=== PATIENT | female | born 1965 | race Caucasian/White ===

== ENCOUNTER → 2018-04-04 | Outpatient (CLI) | payer OTHER ==
[2018-04-05 12:25] LABS: BACTERIA,URINE 0 /HPF (0-FEW); BILIRUBIN,URINE NEG (NEG); CLARITY,URINE HAZY; COLOR,URINE AMBER; GLUCOSE,URINE NEG (NEG); NITRITE,URINE NEG (NEG); RBC,URINE 20-40 /HPF (0-2); UROBILINOGEN,URINE 0.2 mg/dL (0.2 mg/dL)
[2018-04-05 12:26] LABS: SQUAMOUS EPITHELIAL CELL,UR OCC /LPF; WBC,URINE RARE /HPF (0-4)
== END | disposition home or self-care (01) ==
LOC: SPEC 18:50
DX: Z01.818 Encounter for other preprocedural examination (principal); I10 Essential (primary) hypertension; E03.9 Hypothyroidism, unspecified
CPT/HCPCS: 81001

== ENCOUNTER 2019-08-14 13:30 | Inpatient (IN) | payer OTHER ==
[~2019-08-14] VITALS: Ht 162.6 cm; Wt 68.9 kg
[2019-08-14] MEDS ORDERED: METHYL SALICYLATE/MENTHOL TOPICAL OINTMENT 57GM TUBE. TP PRN (13:45)
[2019-08-14] MEDS ORDERED: MAG HYDROX/AL HYDROX/SIMETH 30 ML ORAL.SUSP PO PRN (13:45)
[2019-08-14] MEDS ORDERED: DONE10TA7 PO (13:58)
[2019-08-14] MEDS ORDERED: LISI40TA PO (13:58)
[2019-08-14] MEDS ORDERED: MEMA10TA PO (13:58)
[2019-08-14] MEDS ORDERED: MELA3TAB4 PO (13:58)
[2019-08-14] MEDS ORDERED: LEVO125T PO (13:58)
[2019-08-14 14:00] VITALS: BP 94/54
[2019-08-14 15:01] LABS: BASO # 0.1 x10^3/uL (0.0-0.2); BASO % 1 % (0-3); EOS % 0 % (0-3); HEMATOCRIT 41.5 % (36.0-47.0); HEMOGLOBIN 13.9 g/dL (12.0-15.5); LYMPH % 13 % (24-48); MEAN CORPUSCULAR HEMOGLOBIN 30 pg (25-35); MEAN CORPUSCULAR HGB CONC 34 g/dL (31-37); MEAN CORPUSCULAR VOLUME 91 fL (79-100); MONO # 0.6 x10^3/uL (0.0-1.1); MONO % 8 % (0-9); NEUT # 5.6 x10^3uL (1.8-7.7); NEUT % 78 % (31-73); PLATELET COUNT 207 x10^3/uL (140-400); RED BLOOD COUNT 4.59 x10^6/uL (3.50-5.40); RED CELL DISTRIBUTION WIDTH 13.6 % (11.5-14.5); WHITE BLOOD COUNT 7.3 x10^3/uL (4.0-11.0)
[2019-08-14 15:13] LABS: ALBUMIN 3.7 g/dL (3.4-5.0); ALBUMIN/GLOBULIN RATIO 1.2 (1.0-1.7); CREATININE 0.8 mg/dL (0.6-1.0); GFR 74.7; POTASSIUM 3.4 mmol/L (3.5-5.1); TOTAL BILIRUBIN 0.4 mg/dL (0.2-1.0); TOTAL PROTEIN 6.9 g/dL (6.4-8.2)
[2019-08-14] MEDS: MELATONIN 3 MG TABLET PO SCH (20:36)
[2019-08-14] MEDS: MEMANTINE 10 MG TABLET. PO SCH (20:36)
--- NOTE | 2019-08-14 21:26 | PDOC ---
Exam Note: Steve Note: Please also refer to the separate dictated note~for this date of service dictated separately. Discussed the patient with Nursing staff reviewed the chart.~Reviewed interim history and current functioning. Reviewed vital signs,~Labs/ Radiology~and current medications noted below. Continue current treatment with the changes noted in the dictated addendum note Assessment: Vital Signs/I&O: Vital Signs Date Time Temp Pulse Resp B/P (MAP) Pulse Ox O2 Delivery O2 Flow Rate FiO2 08/14/19 14:00 97.9 89 18 94/54 (67) 95 Room Air Labs: Laboratory Tests Test 08/14/19 14:50 White Blood Count 7.3 x10^3/uL (4.0-11.0) Red Blood Count 4.59 x10^6/uL (3.50-5.40) Hemoglobin 13.9 g/dL (12.0-15.5) Hematocrit 41.5 % (36.0-47.0) Mean Corpuscular Volume 91 fL (79-100) Mean Corpuscular Hemoglobin 30 pg (25-35) Mean Corpuscular Hemoglobin Concent 34 g/dL (31-37) Red Cell Distribution Width 13.6 % (11.5-14.5) Platelet Count 207 x10^3/uL (140-400) Neutrophils (%) (Auto) 78 % (31-73) H Lymphocytes (%) (Auto) 13 % (24-48) L Monocytes (%) (Auto) 8 % (0-9) Eosinophils (%) (Auto) 0 % (0-3) Basophils (%) (Auto) 1 % (0-3) Neutrophils # (Auto) 5.6 x10^3uL (1.8-7.7) Lymphocytes # (Auto) 1.0 x10^3/uL (1.0-4.8) Monocytes # (Auto) 0.6 x10^3/uL (0.0-1.1) Eosinophils # (Auto) 0.0 x10^3/uL (0.0-0.7) Basophils # (Auto) 0.1 x10^3/uL (0.0-0.2) Sodium Level 144 mmol/L (136-145) Potassium Level 3.4 mmol/L (3.5-5.1) L Chloride Level 109 mmol/L (98-107) H Carbon Dioxide Level 27 mmol/L (21-32) Anion Gap 8 (6-14) Blood Urea Nitrogen 9 mg/dL (7-20) Creatinine 0.8 mg/dL (0.6-1.0) Estimated GFR (Cockcroft-Gault) 74.7 BUN/Creatinine Ratio 11 (6-20) Glucose Level 89 mg/dL (70-99) Calcium Level 9.0 mg/dL (8.5-10.1) Magnesium Level 2.1 mg/dL (1.8-2.4) Total Bilirubin 0.4 mg/dL (0.2-1.0) Aspartate Amino Transferase (AST) 25 U/L (15-37) Alanine Aminotransferase (ALT) 39 U/L (14-59) Alkaline Phosphatase 116 U/L (46-116) Total Protein 6.9 g/dL (6.4-8.2) Albumin 3.7 g/dL (3.4-5.0) Albumin/Globulin Ratio 1.2 (1.0-1.7) Current Medications: Meds: Current Medications Medications (Trade) Dose Ordered Sig/Noel Route PRN Reason Start Time Stop Time Status Last Admin Dose Admin Melatonin (Melatonin) 6 mg HS PO 08/14/19 21:00 08/14/19 20:36 Memantine (Namenda) 10 mg BID PO 08/14/19 21:00 08/14/19 20:36 I have reviewed the current psychotropics carefully including drug interactions. Risk benefit ratio favors no change other than as noted in my dictated progress note. Diagnosis: Problems: (1) Major neurocognitive disorder due to Alzheimer's disease, with behavioral disturbance (2) Anxiety disorder (3) Major neurocognitive disorder, due to vascular disease, with behavioral disturbance, mild (4) Dementia in Alzheimer's disease with delusions (5) Dementia in Alzheimer's disease with depression (6) Dementia, vascular, with delusions (7) Dementia, vascular, with depression (8) Impulse control disorder MICHELLE CALDERÓN MD Aug 14, 2019 21:26
[2019-08-15 07:09] LABS: HEMOGLOBIN A1C 5.2 % (4.8-5.6)
[2019-08-15] MEDS ORDERED: LEVOTHYROXINE 125 MCG TABLET PO SCH (07:30)
[2019-08-15 08:08] LABS: THYROXINE 8.7 ug/dL (4.5-12.0)
[2019-08-15] MEDS: LISINOPRIL 20 MG TABLET PO SCH (08:36)
[2019-08-15] MEDS: MEMANTINE 10 MG TABLET. PO SCH ×2 (08:36→20:02)
[2019-08-15] MEDS: DIVALPROEX 125 MG CAP.SPRINK PO SCH ×2 (08:36→17:00)
[2019-08-15] MEDS: DONEPEZIL HCL 10 MG TABLET PO SCH (08:36)
[2019-08-15] MEDS: QUEtiapine 25 MG TABLET. PO SCH ×2 (08:37→17:00)
[2019-08-15] MEDS ORDERED: LISINOPRIL 40 MG PO SCH (09:00)
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
[2019-08-15 15:01] LABS: THYROID STIM HORMONE (TSH) 12.518 uIU/mL (0.358-3.740)
[2019-08-15 15:50] VITALS: BP 169/50
[2019-08-15] MEDS: POTASSIUM CHLORIDE 20 MEQ TABLET.ER. PO SCH (17:00)
[2019-08-15] MEDS: MELATONIN 3 MG TABLET PO SCH (20:02)
[2019-08-15] MEDS: MIRTAZAPINE 7.5 MG TABLET. PO SCH (20:02)
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
--- NOTE | 2019-08-15 21:30 | PDOC ---
Exam Note: Steve Note: Please also refer to the separate dictated note~for this date of service dictated separately.~Patient seen individually. Discussed the patient with Nursing staff reviewed the chart.~Reviewed interim history and current functioning. Reviewed vital signs,~Labs/ Radiology~and current medications noted below. Continue current treatment with the changes noted in the dictated addendum note Assessment: Vital Signs/I&O: Vital Signs Date Time Temp Pulse Resp B/P (MAP) Pulse Ox O2 Delivery O2 Flow Rate FiO2 08/15/19 15:50 97.2 86 24 169/50 (89) 97 08/14/19 14:00 Room Air I & O 08/14/19 08/14/19 08/15/19 15:00 23:00 07:00 Intake Total 120 ml 120 ml 240 ml Balance 120 ml 120 ml 240 ml Current Medications: Meds: Current Medications Medications (Trade) Dose Ordered Sig/Noel Route PRN Reason Start Time Stop Time Status Last Admin Dose Admin Donepezil HCl (Aricept) 10 mg DAILY PO 08/15/19 09:00 08/15/19 08:36 Levothyroxine Sodium (Synthroid) 125 mcg DAILYAC PO 08/15/19 07:30 08/15/19 08:36 DC 08/15/19 06:36 Olanzapine (ZyPREXA ZYDIS) 5 mg PRN Q2HR PRN PO PSYCHOSIS 08/15/19 00:30 08/15/19 11:00 Quetiapine Fumarate (SEROquel) 25 mg 0900,1700 PO 08/15/19 09:00 08/15/19 17:00 Divalproex Sodium (Depakote Sprinkles) 125 mg 0900,1700 PO 08/15/19 09:00 08/15/19 17:00 Potassium Chloride (Klor-Con) 20 meq BIDWMEALS PO 08/15/19 17:00 08/15/19 17:00 Mirtazapine (Remeron) 7.5 mg QHS PO 08/15/19 21:00 08/15/19 20:02 I have reviewed the current psychotropics carefully including drug interactions. Risk benefit ratio favors no change other than as noted in my dictated progress note. Diagnosis: Problems: (1) Major neurocognitive disorder due to Alzheimer's disease, with behavioral disturbance (2) Anxiety disorder (3) Major neurocognitive disorder, due to vascular disease, with behavioral disturbance, mild (4) Dementia in Alzheimer's disease with delusions (5) Dementia in Alzheimer's disease with depression (6) Dementia, vascular, with delusions (7) Dementia, vascular, with depression (8) Impulse control disorder MICHELLE CALDERÓN MD Aug 15, 2019 21:30
[2019-08-15] MEDS: traZODone 50 MG TABLET. PO PRN (23:32)
[2019-08-16] MEDS: LEVOTHYROXINE 125 MCG TABLET PO SCH (05:06)
[2019-08-16] MEDS: MEMANTINE 10 MG TABLET. PO SCH ×4 (08:34→22:12)
[2019-08-16] MEDS: DIVALPROEX 125 MG CAP.SPRINK PO SCH ×2 (08:34→17:00)
[2019-08-16] MEDS: LISINOPRIL 20 MG TABLET PO SCH (08:34)
[2019-08-16] MEDS: DONEPEZIL HCL 10 MG TABLET PO SCH (08:34)
[2019-08-16] MEDS: QUEtiapine 25 MG TABLET. PO SCH ×2 (08:34→17:00)
[2019-08-16] MEDS: POTASSIUM CHLORIDE 20 MEQ TABLET.ER. PO SCH ×2 (08:35→17:00)
[2019-08-16] MEDS: metroNIDAZOLE 0.75% TOPICAL 1 APP TUBE TP SCH (08:35)
[2019-08-16 16:19] VITALS: BP 120/70
[2019-08-16] MEDS: MELATONIN 3 MG TABLET PO SCH ×3 (20:07→21:00)
[2019-08-16] MEDS: MIRTAZAPINE 7.5 MG TABLET. PO SCH ×3 (20:07→22:30)
[2019-08-16 20:16] VITALS: BP 96/58
--- NOTE | 2019-08-16 21:23 | PDOC ---
Exam Note: Steve Note: Please also refer to the separate dictated note~for this date of service dictated separately.~Patient seen individually. Discussed the patient with Nursing staff reviewed the chart.~Reviewed interim history and current functioning. Reviewed vital signs,~Labs/ Radiology~and current medications noted below. Continue current treatment with the changes noted in the dictated addendum note Assessment: Vital Signs/I&O: Vital Signs Date Time Temp Pulse Resp B/P (MAP) Pulse Ox O2 Delivery O2 Flow Rate FiO2 08/16/19 16:19 87 20 120/70 (87) 99 08/16/19 06:40 97.1 08/14/19 14:00 Room Air I & O 08/15/19 08/15/19 08/16/19 15:00 23:00 07:00 Intake Total 600 ml 240 ml 240 ml Balance 600 ml 240 ml 240 ml Current Medications: Meds: Current Medications Medications (Trade) Dose Ordered Sig/Noel Route PRN Reason Start Time Stop Time Status Last Admin Dose Admin Levothyroxine Sodium (Synthroid) 125 mcg DAILY06 PO 08/16/19 06:00 08/16/19 05:06 Metronidazole (Nydamax) 1 mell DAILY TP 08/16/19 09:00 08/16/19 08:35 I have reviewed the current psychotropics carefully including drug interactions. Risk benefit ratio favors no change other than as noted in my dictated progress note. Diagnosis: Problems: (1) Major neurocognitive disorder due to Alzheimer's disease, with behavioral disturbance (2) Anxiety disorder (3) Major neurocognitive disorder, due to vascular disease, with behavioral disturbance, mild (4) Dementia in Alzheimer's disease with delusions (5) Dementia in Alzheimer's disease with depression (6) Dementia, vascular, with delusions (7) Dementia, vascular, with depression (8) Impulse control disorder MICHELLE CALDERÓN MD Aug 16, 2019 21:23
[2019-08-16] MEDS: traZODone 50 MG TABLET. PO PRN (22:12)
[2019-08-17 00:16] VITALS: BP 107/69
[2019-08-17] MEDS: LEVOTHYROXINE 125 MCG TABLET PO SCH (05:02)
[2019-08-17 06:31] VITALS: BP 111/65
[2019-08-17] MEDS: QUEtiapine 25 MG TABLET. PO SCH ×2 (08:13→17:17)
[2019-08-17] MEDS: LISINOPRIL 20 MG TABLET PO SCH (08:13)
[2019-08-17] MEDS: MEMANTINE 10 MG TABLET. PO SCH ×2 (08:14→20:05)
[2019-08-17] MEDS: DONEPEZIL HCL 10 MG TABLET PO SCH (08:14)
[2019-08-17] MEDS: metroNIDAZOLE 0.75% TOPICAL 1 APP TUBE TP SCH (08:14)
[2019-08-17] MEDS: POTASSIUM CHLORIDE 20 MEQ TABLET.ER. PO SCH ×2 (08:14→17:17)
[2019-08-17] MEDS: DIVALPROEX 125 MG CAP.SPRINK PO SCH ×2 (08:14→17:17)
[2019-08-17 15:45] VITALS: BP 137/78
[2019-08-17] MEDS: MELATONIN 3 MG TABLET PO SCH (20:05)
[2019-08-17] MEDS: MIRTAZAPINE 7.5 MG TABLET. PO SCH (20:05)
[2019-08-17] MEDS: traZODone 50 MG TABLET. PO PRN (20:07)
[2019-08-17] MEDS ORDERED: MIRTAZAPINE 7.5 MG TABLET. PO SCH (21:00)
--- NOTE | 2019-08-17 22:17 | PN ---
DATE: 08/15/2019 PSYCHIATRIC PROGRESS NOTE This late entry 08/15/2019 covers elements not covered in my initial note. SUBJECTIVE: I met with the patient evening of 08/15/2019. Per DEVORA Miller, the patient remains confused, anxious, restless, constantly pacing up and down, oblivious of where she is. She had to be in the west Hallway to reduce sensory stimuli. Speech is word salad, slept just 3/4 hours previous night. Remains on Depakote and Seroquel. REVIEW OF SYSTEMS: No CV, , pulmonary, eye, ENT system symptoms on review. Reliability poor. MENTAL STATUS EXAM: Oriented to herself. Insight, judgment, recent and remote memory, attention, concentration, fund of knowledge poor, consistent with her diagnoses. IMPRESSION: Major neurocognitive disorder, Alzheimer, vascular with delusion, depression, behavioral disturbance; anxiety disorder, unspecified; impulse control disorder, unspecified. PLAN: Start Remeron 7.5 mg at bedtime to help with insomnia and anxiety. Maintain Seroquel and Depakote. Start trazodone 50 mg at bedtime p.r.n., may repeat x 1. She is receiving Zyprexa p.r.n., already received 15 mg by the time I met with her and maxes 20 mg in 24 hours. We will have to reassess this. MICHELLE CALDERÓN MD DR: JOSH/corrie JOB#: [id number] / [id number]
--- NOTE | 2019-08-17 22:19 | PN ---
DATE: 08/16/2019 This late entry 08/16/2019 covers elements not covered in my initial note. SUBJECTIVE: I met with the patient in evening of 08/16/2019. Per DEVORA Rivas, the patient slept full three-quarter hours previous night. She remains restless, wandering, sleeps in the chair, oblivious away. Sometimes, she has to be in the west Hallway to reduce stimuli. REVIEW OF SYSTEMS: No CV, , pulmonary, eye, ENT system symptoms on review. MENTAL STATUS EXAM: Oriented to herself. Insight, judgment, recent and remote memory, attention, concentration, fund of knowledge poor, consistent with her diagnosis mentioned in my initial note. IMPRESSION: Major neurocognitive disorder; Alzheimer, vascular with delusion; depression; behavioral disturbance; anxiety disorder, unspecified; impulse control disorder, unspecified. PLAN: Increase Remeron from 7.5 mg at bedtime to 15 mg at bedtime to help with her insomnia, anxiety, restlessness. Maintain Depakote Sprinkles 125 mg 0900, 1700. Check a valproic acid level. Maintain Seroquel 25 mg 0900 and 1700, Namenda 10 b.i.d., Aricept 10 mg daily, melatonin 6 mg at bedtime, trazodone and Zyprexa p.r.n. Rest unchanged. MAN Lance CALDERÓN MD DR: JOSH/corrie JOB#: [id number] / [id number]
--- NOTE | 2019-08-17 22:45 | PDOC ---
Exam Note: Steve Note: Please also refer to the separate dictated note~for this date of service dictated separately.~Patient seen individually. Discussed the patient with Nursing staff reviewed the chart.~Reviewed interim history and current functioning. Reviewed vital signs,~Labs/ Radiology~and current medications noted below. Continue current treatment with the changes noted in the dictated addendum note Assessment: Vital Signs/I&O: Vital Signs Date Time Temp Pulse Resp B/P (MAP) Pulse Ox O2 Delivery O2 Flow Rate FiO2 08/17/19 15:45 98.0 78 20 137/78 (97) 97 08/17/19 00:16 Room Air I & O 08/16/19 08/16/19 08/17/19 15:00 23:00 07:00 Intake Total 480 ml 0 ml 240 ml Balance 480 ml 0 ml 240 ml Current Medications: I have reviewed the current psychotropics carefully including drug interactions. Risk benefit ratio favors no change other than as noted in my dictated progress note. Diagnosis: Problems: (1) Major neurocognitive disorder due to Alzheimer's disease, with behavioral disturbance (2) Anxiety disorder (3) Major neurocognitive disorder, due to vascular disease, with behavioral disturbance, mild (4) Dementia in Alzheimer's disease with delusions (5) Dementia in Alzheimer's disease with depression (6) Dementia, vascular, with delusions (7) Dementia, vascular, with depression (8) Impulse control disorder MICHELLE CALDERÓN MD Aug 17, 2019 22:45
[2019-08-18] MEDS: LEVOTHYROXINE 125 MCG TABLET PO SCH (05:13)
[2019-08-18 06:29] VITALS: BP 126/77
[2019-08-18 07:41] LABS: BASO % 1 % (0-3); EOS # 0.1 x10^3/uL (0.0-0.7); EOS % 2 % (0-3); HEMATOCRIT 41.4 % (36.0-47.0); HEMOGLOBIN 13.6 g/dL (12.0-15.5); LYMPH # 0.9 x10^3/uL (1.0-4.8); LYMPH % 15 % (24-48); MEAN CORPUSCULAR HEMOGLOBIN 30 pg (25-35); MEAN CORPUSCULAR HGB CONC 33 g/dL (31-37); MEAN CORPUSCULAR VOLUME 91 fL (79-100); MONO # 0.6 x10^3/uL (0.0-1.1); MONO % 11 % (0-9); NEUT # 4.4 x10^3uL (1.8-7.7); NEUT % 73 % (31-73); PLATELET COUNT 200 x10^3/uL (140-400); RED BLOOD COUNT 4.54 x10^6/uL (3.50-5.40); RED CELL DISTRIBUTION WIDTH 13.3 % (11.5-14.5)
[2019-08-18 08:04] LABS: ALBUMIN 3.6 g/dL (3.4-5.0); CALCIUM 9.4 mg/dL (8.5-10.1); CREATININE 0.8 mg/dL (0.6-1.0); GFR 74.7; POTASSIUM 4.3 mmol/L (3.5-5.1); TOTAL BILIRUBIN 0.7 mg/dL (0.2-1.0); TOTAL PROTEIN 7.2 g/dL (6.4-8.2)
[2019-08-18 08:39] LABS: VAL ACID 17 mcg/mL (50-100)
[2019-08-18] MEDS: POTASSIUM CHLORIDE 20 MEQ TABLET.ER. PO SCH ×2 (08:45→17:00)
[2019-08-18] MEDS: DIVALPROEX 125 MG CAP.SPRINK PO SCH (08:45)
[2019-08-18] MEDS: DONEPEZIL HCL 10 MG TABLET PO SCH (08:45)
[2019-08-18] MEDS: metroNIDAZOLE 0.75% TOPICAL 1 APP TUBE TP SCH (08:46)
[2019-08-18] MEDS: LISINOPRIL 20 MG TABLET PO SCH (08:46)
[2019-08-18] MEDS: MEMANTINE 10 MG TABLET. PO SCH ×2 (08:46→20:30)
[2019-08-18] MEDS: QUEtiapine 25 MG TABLET. PO SCH ×2 (08:46→17:00)
[2019-08-18] MEDS: MELATONIN 3 MG TABLET PO SCH (20:30)
[2019-08-18] MEDS: MIRTAZAPINE 7.5 MG TABLET. PO SCH (20:30)
--- NOTE | 2019-08-18 21:05 | PN ---
DATE: 08/17/2019 This late entry 08/17/2019 covers elements not covered in my initial note. SUBJECTIVE: I met with the patient in evening of 08/17/2019. Per DEVORA Blanco, the patient slept 7-1/4 hours previous night. She has been wandering, yelling at times. visited, she was calm during the visit, woke up later, was yelling, takes medications, crushed. We will check a valproic acid level in the morning of 08/18/2019. REVIEW OF SYSTEMS: No CV, , pulmonary, eye, ENT system symptoms on review. Reliability poor. MENTAL STATUS EXAM: Oriented to herself. Insight, judgment, recent and remote memory, attention, concentration, fund of knowledge poor, consistent with her diagnoses. IMPRESSION: Major neurocognitive disorder; Alzheimer; vascular with delusion; depression; behavioral disturbance; anxiety disorder, unspecified; impulse control disorder, unspecified. Rest unchanged. PLAN: No change from initial note. Check a valproic acid level. Adjust further as clinically indicated. MAN Lance CALDERÓN MD DR: JOSH/corrie JOB#: [id number] / [id number]
--- NOTE | 2019-08-18 21:52 | PDOC ---
Exam Note: Steve Note: Please also refer to the separate dictated note~for this date of service dictated separately.~Patient seen individually. Discussed the patient with Nursing staff reviewed the chart.~Reviewed interim history and current functioning. Reviewed vital signs,~Labs/ Radiology~and current medications noted below. Continue current treatment with the changes noted in the dictated addendum note Assessment: Vital Signs/I&O: Vital Signs Date Time Temp Pulse Resp B/P (MAP) Pulse Ox O2 Delivery O2 Flow Rate FiO2 08/18/19 08:46 74 126/77 08/18/19 06:29 97.0 14 98 08/17/19 00:16 Room Air I & O 08/17/19 08/17/19 08/18/19 15:00 23:00 07:00 Intake Total 440 ml 240 ml 60 ml Balance 440 ml 240 ml 60 ml Labs: Laboratory Tests Test 08/18/19 07:30 White Blood Count 6.0 x10^3/uL (4.0-11.0) Red Blood Count 4.54 x10^6/uL (3.50-5.40) Hemoglobin 13.6 g/dL (12.0-15.5) Hematocrit 41.4 % (36.0-47.0) Mean Corpuscular Volume 91 fL (79-100) Mean Corpuscular Hemoglobin 30 pg (25-35) Mean Corpuscular Hemoglobin Concent 33 g/dL (31-37) Red Cell Distribution Width 13.3 % (11.5-14.5) Platelet Count 200 x10^3/uL (140-400) Neutrophils (%) (Auto) 73 % (31-73) Lymphocytes (%) (Auto) 15 % (24-48) L Monocytes (%) (Auto) 11 % (0-9) H Eosinophils (%) (Auto) 2 % (0-3) Basophils (%) (Auto) 1 % (0-3) Neutrophils # (Auto) 4.4 x10^3uL (1.8-7.7) Lymphocytes # (Auto) 0.9 x10^3/uL (1.0-4.8) L Monocytes # (Auto) 0.6 x10^3/uL (0.0-1.1) Eosinophils # (Auto) 0.1 x10^3/uL (0.0-0.7) Basophils # (Auto) 0.0 x10^3/uL (0.0-0.2) Sodium Level 144 mmol/L (136-145) Potassium Level 4.3 mmol/L (3.5-5.1) Chloride Level 108 mmol/L (98-107) H Carbon Dioxide Level 26 mmol/L (21-32) Anion Gap 10 (6-14) Blood Urea Nitrogen 17 mg/dL (7-20) Creatinine 0.8 mg/dL (0.6-1.0) Estimated GFR (Cockcroft-Gault) 74.7 BUN/Creatinine Ratio 21 (6-20) H Glucose Level 88 mg/dL (70-99) Calcium Level 9.4 mg/dL (8.5-10.1) Total Bilirubin 0.7 mg/dL (0.2-1.0) Aspartate Amino Transferase (AST) 19 U/L (15-37) Alanine Aminotransferase (ALT) 31 U/L (14-59) Alkaline Phosphatase 120 U/L (46-116) H Ammonia 13 mcmol/L (11-34) Total Protein 7.2 g/dL (6.4-8.2) Albumin 3.6 g/dL (3.4-5.0) Albumin/Globulin Ratio 1.0 (1.0-1.7) Valproic Acid Level 17 mcg/mL (50-100) L Valproic Acid Last Dose Date 08/17/19 Valproic Acid Last Dose Time 2100 Current Medications: I have reviewed the current psychotropics carefully including drug interactions. Risk benefit ratio favors no change other than as noted in my dictated progress note. Diagnosis: Problems: (1) Major neurocognitive disorder due to Alzheimer's disease, with behavioral disturbance (2) Anxiety disorder (3) Major neurocognitive disorder, due to vascular disease, with behavioral disturbance, mild (4) Dementia in Alzheimer's disease with delusions (5) Dementia in Alzheimer's disease with depression (6) Dementia, vascular, with delusions (7) Dementia, vascular, with depression (8) Impulse control disorder MICHELLE CALDERÓN MD Aug 18, 2019 21:52
[2019-08-19] MEDS: traZODone 50 MG TABLET. PO PRN (01:42)
[2019-08-19] MEDS: LEVOTHYROXINE 125 MCG TABLET PO SCH (05:42)
[2019-08-19 05:49] VITALS: BP 126/77
[2019-08-19 06:20] VITALS: BP 129/71
[2019-08-19] MEDS: DIVALPROEX 125 MG CAP.SPRINK PO SCH ×2 (08:52→17:10)
[2019-08-19] MEDS: MEMANTINE 10 MG TABLET. PO SCH ×2 (08:52→19:59)
[2019-08-19] MEDS: MAGNESIUM HYDROXIDE 2,400 MG/30 ML ORAL.SUSP. PO PRN (08:53)
[2019-08-19] MEDS: DONEPEZIL HCL 10 MG TABLET PO SCH (08:53)
[2019-08-19] MEDS: metroNIDAZOLE 0.75% TOPICAL 1 APP TUBE TP SCH (08:53)
[2019-08-19] MEDS: QUEtiapine 25 MG TABLET. PO SCH ×2 (08:53→17:11)
[2019-08-19] MEDS: POTASSIUM CHLORIDE 20 MEQ TABLET.ER. PO SCH ×2 (08:53→17:11)
[2019-08-19] MEDS: LISINOPRIL 20 MG TABLET PO SCH (08:53)
[2019-08-19 16:09] VITALS: BP 158/84
[2019-08-19] MEDS: MIRTAZAPINE 7.5 MG TABLET. PO SCH (20:00)
[2019-08-19] MEDS: MELATONIN 3 MG TABLET PO SCH (20:00)
--- NOTE | 2019-08-19 21:49 | PDOC ---
Exam Note: Steve Note: Please also refer to the separate dictated note~for this date of service dictated separately.~Patient seen individually. Discussed the patient with Nursing staff reviewed the chart.~Reviewed interim history and current functioning. Reviewed vital signs,~Labs/ Radiology~and current medications noted below. Continue current treatment with the changes noted in the dictated addendum note Assessment: Vital Signs/I&O: Vital Signs Date Time Temp Pulse Resp B/P (MAP) Pulse Ox O2 Delivery O2 Flow Rate FiO2 08/19/19 16:09 98.6 66 18 158/84 (108) 98 08/17/19 00:16 Room Air I & O 08/18/19 08/18/19 08/19/19 15:00 23:00 07:00 Intake Total 320 ml 180 ml Balance 320 ml 180 ml Current Medications: Meds: Current Medications Medications (Trade) Dose Ordered Sig/Noel Route PRN Reason Start Time Stop Time Status Last Admin Dose Admin Divalproex Sodium (Depakote Sprinkles) 250 mg 0900,1700 PO 08/19/19 09:00 08/19/19 17:10 I have reviewed the current psychotropics carefully including drug interactions. Risk benefit ratio favors no change other than as noted in my dictated progress note. Diagnosis: Problems: (1) Major neurocognitive disorder due to Alzheimer's disease, with behavioral disturbance (2) Anxiety disorder (3) Major neurocognitive disorder, due to vascular disease, with behavioral disturbance, mild (4) Dementia in Alzheimer's disease with delusions (5) Dementia in Alzheimer's disease with depression (6) Dementia, vascular, with delusions (7) Dementia, vascular, with depression (8) Impulse control disorder MICHELLE CALDERÓN MD Aug 19, 2019 21:49
--- NOTE | 2019-08-19 22:03 | PN ---
DATE: 08/18/2019 PSYCHIATRIC PROGRESS NOTE This late entry 08/18/2019 covers the elements not covered in my initial note. SUBJECTIVE: I met with the patient in the evening of 08/18/2019. Per DEVORA Goldberg, the patient slept 6-1/2 hours previous night. She ate breakfast and lunch, remains confused, wandering the hallways and as I met with her, she was oblivious of her surroundings, patting me on the back and otherwise totally unaware of where she was. REVIEW OF SYSTEMS: No CV, , pulmonary, eye, ENT system symptoms on review. Reliability poor. MENTAL STATUS EXAM: Oriented to herself. Insight, judgment, recent and remote memory, attention, concentration, fund of knowledge poor, consistent with her diagnoses. IMPRESSION: Major neurocognitive disorder, Alzheimer, vascular with delusion, depression, behavioral disturbance; anxiety disorder, unspecified; impulse control disorder, unspecified. Rest unchanged. PLAN: Valproic acid level is 17 on Depakote Sprinkles 125 mg twice a day, increase to 250 mg twice a day. Check CBC, CMP, valproic acid level in 3 days. Maintain Seroquel 25 mg 0900 hours, 1700 hours, Namenda 10 mg b.i.d., Aricept 10 mg a day, melatonin 6 mg at bedtime, Zyprexa p.r.n., Remeron 15 mg at bedtime, trazodone 50 mg at bedtime p.r.n., october repeat x 1 for insomnia. Make further adjustments in her psychotropics as clinically indicated. MICHELLE CALDERÓN MD DR: JOSH/corrie JOB#: [id number] / [id number]
[2019-08-20] MEDS: LEVOTHYROXINE 125 MCG TABLET PO SCH (05:46)
[2019-08-20 06:21] VITALS: BP 138/70
[2019-08-20] MEDS: POTASSIUM CHLORIDE 20 MEQ TABLET.ER. PO SCH ×2 (08:24→17:38)
[2019-08-20] MEDS: DIVALPROEX 125 MG CAP.SPRINK PO SCH ×2 (08:25→17:37)
[2019-08-20] MEDS: DONEPEZIL HCL 10 MG TABLET PO SCH (08:25)
[2019-08-20] MEDS: MEMANTINE 10 MG TABLET. PO SCH ×2 (08:25→19:48)
[2019-08-20] MEDS: QUEtiapine 25 MG TABLET. PO SCH ×2 (08:25→17:38)
[2019-08-20] MEDS: metroNIDAZOLE 0.75% TOPICAL 1 APP TUBE TP SCH (08:27)
[2019-08-20] MEDS: LISINOPRIL 20 MG TABLET PO SCH (08:27)
--- NOTE | 2019-08-20 09:54 | PN ---
DATE: 08/19/2019 PSYCHIATRIC PROGRESS NOTE This late entry August 18 covers elements not covered in my initial note. SUBJECTIVE: I met with the patient at length the evening of August 18. Per DEVORA Rodriguez, the patient remains confused, wandering the hallways, asking for her mother. Whenever there are loud noises around her she gets agitated. As I met with her individually on rounds in the evening, she kept following me around the unit, anxious, labile, had received trazodone at 1:45 a.m. as she was having sleep disturbance and slept a total of 4-3/4 hours previous night. Zyprexa Zydis has helped. REVIEW OF SYSTEMS: No CV, , pulmonary, eye, ENT system symptoms on review. MENTAL STATUS EXAM: Oriented to herself. Insight, judgment, recent and remote memory, attention, concentration, fund of knowledge poor, consistent with her diagnoses. IMPRESSION: Major neurocognitive disorder, Alzheimer, vascular with delusion, depression, behavioral disturbance; anxiety disorder, unspecified; impulse control disorder, unspecified. PLAN: We have increased the patient's Depakote, currently she is taking 250 mg twice a day. CBC, CMP, valproic acid level to be checked on the and then Depakote adjusted to reach a therapeutic level of between 50 and 100 since the last level on August 17 was 17 on 125 mg twice a day. Depending on how she does behaviorally with her impulse control, agitation, once the valproic acid level is therapeutic, we may then have to increase the Seroquel further for mood stabilization agitations psychosis and aggression. I feel if we do both simultaneously, she is likely to have more side effects, sedation, risk of fall and it would be prudent to do one at a time, starting with the Depakote. Social service staff had asked me an update on the patient's treatment and I left hand written note for social service staff about this in this dictated note so as to confirm the above. MICHELLE CALDERÓN MD DR: JOSH/corrie JOB#: [id number] / [id number]
[2019-08-20 15:44] VITALS: BP 132/93
[2019-08-20] MEDS: MELATONIN 3 MG TABLET PO SCH (19:48)
[2019-08-20] MEDS: MIRTAZAPINE 7.5 MG TABLET. PO SCH (19:49)
--- NOTE | 2019-08-20 22:00 | PDOC ---
Exam Note: Steve Note: Please also refer to the separate dictated note~for this date of service dictated separately.~Patient seen individually. Discussed the patient with Nursing staff reviewed the chart.~Reviewed interim history and current functioning. Reviewed vital signs,~Labs/ Radiology~and current medications noted below. Continue current treatment with the changes noted in the dictated addendum note Assessment: Vital Signs/I&O: Vital Signs Date Time Temp Pulse Resp B/P (MAP) Pulse Ox O2 Delivery O2 Flow Rate FiO2 08/20/19 15:44 97.4 100 20 132/93 (106) 97 08/17/19 00:16 Room Air I & O 08/19/19 08/19/19 08/20/19 15:00 23:00 07:00 Intake Total 840 ml 360 ml Balance 840 ml 360 ml Current Medications: I have reviewed the current psychotropics carefully including drug interactions. Risk benefit ratio favors no change other than as noted in my dictated progress note. Diagnosis: Problems: (1) Major neurocognitive disorder due to Alzheimer's disease, with behavioral disturbance (2) Anxiety disorder (3) Major neurocognitive disorder, due to vascular disease, with behavioral disturbance, mild (4) Dementia in Alzheimer's disease with delusions (5) Dementia in Alzheimer's disease with depression (6) Dementia, vascular, with delusions (7) Dementia, vascular, with depression (8) Impulse control disorder MICHELLE CALDERÓN MD Aug 20, 2019 21:59
[2019-08-20] MEDS: traZODone 50 MG TABLET. PO PRN (23:26)
[2019-08-21] MEDS: LEVOTHYROXINE 125 MCG TABLET PO SCH (04:57)
[2019-08-21 06:00] VITALS: BP 120/71
[2019-08-21] MEDS: MEMANTINE 10 MG TABLET. PO SCH ×2 (08:23→20:09)
[2019-08-21] MEDS: QUEtiapine 25 MG TABLET. PO SCH ×2 (08:23→16:42)
[2019-08-21] MEDS: DONEPEZIL HCL 10 MG TABLET PO SCH (08:24)
[2019-08-21] MEDS: POTASSIUM CHLORIDE 20 MEQ TABLET.ER. PO SCH ×2 (08:24→16:42)
[2019-08-21] MEDS: DIVALPROEX 125 MG CAP.SPRINK PO SCH ×2 (08:24→16:42)
[2019-08-21] MEDS: LISINOPRIL 20 MG TABLET PO SCH (08:24)
[2019-08-21] MEDS: metroNIDAZOLE 0.75% TOPICAL 1 APP TUBE TP SCH (08:25)
[2019-08-21 09:50] VITALS: BP 135/77
[2019-08-21 10:32] LABS: BASO # 0.1 x10^3/uL (0.0-0.2); BASO % 1 % (0-3); EOS % 1 % (0-3); HEMOGLOBIN 13.9 g/dL (12.0-15.5); LYMPH # 0.6 x10^3/uL (1.0-4.8); LYMPH % 8 % (24-48); MEAN CORPUSCULAR HEMOGLOBIN 30 pg (25-35); MEAN CORPUSCULAR HGB CONC 33 g/dL (31-37); MEAN CORPUSCULAR VOLUME 91 fL (79-100); MONO # 0.6 x10^3/uL (0.0-1.1); MONO % 8 % (0-9); NEUT # 5.7 x10^3uL (1.8-7.7); NEUT % 82 % (31-73); PLATELET COUNT 242 x10^3/uL (140-400); RED BLOOD COUNT 4.63 x10^6/uL (3.50-5.40); RED CELL DISTRIBUTION WIDTH 13.1 % (11.5-14.5); WHITE BLOOD COUNT 6.9 x10^3/uL (4.0-11.0)
[2019-08-21 10:42] LABS: CALCIUM 9.3 mg/dL (8.5-10.1); CREATININE 0.8 mg/dL (0.6-1.0); GFR 74.7; POTASSIUM 3.7 mmol/L (3.5-5.1)
[2019-08-21] MEDS: GLYCERIN ADULT 1 SUPP.RECT. PR PRN (10:50)
[2019-08-21 10:57] LABS: ALBUMIN 3.6 g/dL (3.4-5.0); TOTAL BILIRUBIN 0.6 mg/dL (0.2-1.0); TOTAL PROTEIN 7.3 g/dL (6.4-8.2)
--- NOTE | 2019-08-21 13:12 | TX PLAN ---
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 Change Sleep, Anxiety/Panic, Combative, Confusion/Disoriented, Poor impulse control Problem in Patient's Words: Nicolasa is unable to express herself in a sensical manner related to advanced dementia. Per Nicolasa's care facility, [facility], Nicolasa's behavior is a danger to herslef and others. They are unable to manage her behaviors at present time. Additional Admission Comments: Per intake record, Nicolasa has been combative towards staff/physician/spouse, increasngly agitated, screaming out, throwing household items, broke a vase and chair, insomnia, and uncontrollably eating. Problems Active Problems: Pacing the unit Restless Agitated Beating fists on table, nursning station windows Bit nursning staff Inactive Problems: Medication compliant Pt Strengths/Limitations Ability for Morrison: Poor Cognitive Functioning/Ability: Poor Communication Skills/Ability: Poor Financial Resources: Fair Insight/Judgement: Poor Intellectual Ability: Poor Physical Health: Fair Social Skills: Poor Stability in Family: Good Verbal Skills: Poor Discharge Criteria Discharge Criteria: Adequate arrangements @DC, Improved behavior, Improved mood/thought Preliminary Discharge Plan Preliminary DC Plan: Memory Care Special Precautions Special Precautions: Agitation/Assault Fall Risk: High Initial D/C Plan [facility] Identified Discharge Needs: Follow up with PCP and out patient psychaitry if available. Currently Utilized Resources Currently Utilized Resources/P: [facility] provides 24 hour care. PCP access Dr. Morales, neurologist, follows. Referrals Community Resources: Out patient psychiatry if available Identified Problems/Hx/Goals Objectives/Short-Term Goals Short Term Goals: Control abnormal behavior, Dec. Aggression, Dec. Outbursts, Medication Stabilization, Monitor Med Effects Short Term Goals in Patient's: Per POA, "Hoping she gets some peace." Interventions/Frequency Staff Interventions/Frequency&: Nursing provides routine safety checks, adl support, medication administration, and assessments. Psychiatry 3-5 times weekly. SW visits twice weekly. 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 Education: Nicolasa graduated high school and obtained a bachelors degree in health science from [place], [place]. Community Follow-up PCP Neurology with Dr. Morales Out patient psychiatry if available Community Provider/Family Inpu: Time, spouse/POA, participated in treatment team call on this date. [facility] has approved Nicolasa thru 08/27/19, review is due at that time. Treatment Plan Explained Patient/Soils Analyst had this treatment plan explained to him/her as indicated by the signature below and has been given the opportunity to ask questions and make suggestions: Date: Patient/Soils Analyst Signature: NICHOL EMERY Aug 21, 2019 13:12
[2019-08-21] MEDS: ACETAMINOPHEN 325 MG TABLET PO PRN (16:42)
[2019-08-21 16:44] VITALS: BP 133/84
[2019-08-21] MEDS: MIRTAZAPINE 7.5 MG TABLET. PO SCH (20:09)
[2019-08-21] MEDS: traZODone 50 MG TABLET. PO PRN (20:09)
[2019-08-21] MEDS: MELATONIN 3 MG TABLET PO SCH (20:10)
--- NOTE | 2019-08-21 21:49 | PDOC ---
Exam Note: Steve Note: Please also refer to the separate dictated note~for this date of service dictated separately.~Patient seen individually. Discussed the patient with Nursing staff reviewed the chart.~Reviewed interim history and current functioning. Reviewed vital signs,~Labs/ Radiology~and current medications noted below. Continue current treatment with the changes noted in the dictated addendum note Assessment: Vital Signs/I&O: Vital Signs Date Time Temp Pulse Resp B/P (MAP) Pulse Ox O2 Delivery O2 Flow Rate FiO2 08/21/19 16:44 98.0 93 22 133/84 (100) 96 08/21/19 09:50 Room Air I & O 08/20/19 08/20/19 08/21/19 15:00 23:00 07:00 Intake Total 720 ml 480 ml 100 ml Balance 720 ml 480 ml 100 ml Labs: Laboratory Tests Test 08/21/19 10:01 08/21/19 10:25 Glucose (Fingerstick) 99 mg/dL (70-99) White Blood Count 6.9 x10^3/uL (4.0-11.0) Red Blood Count 4.63 x10^6/uL (3.50-5.40) Hemoglobin 13.9 g/dL (12.0-15.5) Hematocrit 42.0 % (36.0-47.0) Mean Corpuscular Volume 91 fL (79-100) Mean Corpuscular Hemoglobin 30 pg (25-35) Mean Corpuscular Hemoglobin Concent 33 g/dL (31-37) Red Cell Distribution Width 13.1 % (11.5-14.5) Platelet Count 242 x10^3/uL (140-400) Neutrophils (%) (Auto) 82 % (31-73) H Lymphocytes (%) (Auto) 8 % (24-48) L Monocytes (%) (Auto) 8 % (0-9) Eosinophils (%) (Auto) 1 % (0-3) Basophils (%) (Auto) 1 % (0-3) Neutrophils # (Auto) 5.7 x10^3uL (1.8-7.7) Lymphocytes # (Auto) 0.6 x10^3/uL (1.0-4.8) L Monocytes # (Auto) 0.6 x10^3/uL (0.0-1.1) Eosinophils # (Auto) 0.0 x10^3/uL (0.0-0.7) Basophils # (Auto) 0.1 x10^3/uL (0.0-0.2) Sodium Level 144 mmol/L (136-145) Potassium Level 3.7 mmol/L (3.5-5.1) Chloride Level 108 mmol/L (98-107) H Carbon Dioxide Level 24 mmol/L (21-32) Anion Gap 12 (6-14) Blood Urea Nitrogen 27 mg/dL (7-20) H Creatinine 0.8 mg/dL (0.6-1.0) Estimated GFR (Cockcroft-Gault) 74.7 BUN/Creatinine Ratio 34 (6-20) H Glucose Level 109 mg/dL (70-99) H Lactic Acid Level 1.4 mmol/L (0.4-2.0) Calcium Level 9.3 mg/dL (8.5-10.1) Total Bilirubin 0.6 mg/dL (0.2-1.0) Aspartate Amino Transferase (AST) 37 U/L (15-37) Alanine Aminotransferase (ALT) 47 U/L (14-59) Alkaline Phosphatase 140 U/L (46-116) H Total Protein 7.3 g/dL (6.4-8.2) Albumin 3.6 g/dL (3.4-5.0) Albumin/Globulin Ratio 1.0 (1.0-1.7) Current Medications: Meds: Current Medications Medications (Trade) Dose Ordered Sig/Noel Route PRN Reason Start Time Stop Time Status Last Admin Dose Admin Glycerin (Sani-Supp Adult) 1 supp PRN DAILY PRN DE constipation 08/21/19 10:33 08/21/19 10:50 I have reviewed the current psychotropics carefully including drug interactions. Risk benefit ratio favors no change other than as noted in my dictated progress note. Diagnosis: Problems: (1) Major neurocognitive disorder due to Alzheimer's disease, with behavioral disturbance (2) Anxiety disorder (3) Major neurocognitive disorder, due to vascular disease, with behavioral disturbance, mild (4) Dementia in Alzheimer's disease with delusions (5) Dementia in Alzheimer's disease with depression (6) Dementia, vascular, with delusions (7) Dementia, vascular, with depression (8) Impulse control disorder MICHELLE CALDERÓN MD Aug 21, 2019 21:49
[2019-08-22 05:07] VITALS: BP 108/68
[2019-08-22] MEDS: LEVOTHYROXINE 125 MCG TABLET PO SCH (05:12)
[2019-08-22 07:25] LABS: BASO % 1 % (0-3); EOS # 0.1 x10^3/uL (0.0-0.7); EOS % 1 % (0-3); HEMATOCRIT 43.6 % (36.0-47.0); HEMOGLOBIN 14.3 g/dL (12.0-15.5); LYMPH # 0.8 x10^3/uL (1.0-4.8); LYMPH % 11 % (24-48); MEAN CORPUSCULAR HEMOGLOBIN 30 pg (25-35); MEAN CORPUSCULAR HGB CONC 33 g/dL (31-37); MEAN CORPUSCULAR VOLUME 91 fL (79-100); MONO # 0.7 x10^3/uL (0.0-1.1); MONO % 10 % (0-9); NEUT # 5.6 x10^3uL (1.8-7.7); NEUT % 78 % (31-73); PLATELET COUNT 268 x10^3/uL (140-400); RED BLOOD COUNT 4.82 x10^6/uL (3.50-5.40); RED CELL DISTRIBUTION WIDTH 13.5 % (11.5-14.5); WHITE BLOOD COUNT 7.2 x10^3/uL (4.0-11.0)
[2019-08-22 07:39] LABS: ALBUMIN 3.7 g/dL (3.4-5.0); ALBUMIN/GLOBULIN RATIO 0.9 (1.0-1.7); ALK PHOS 137 U/L (46-116); ALT (SGPT) 52 U/L (14-59); ANION GAP 11 (6-14); AST (SGOT) 51 U/L (15-37); BLOOD UREA NITROGEN 24 mg/dL (7-20); BUN/CREATININE RATIO 30 (6-20); CALCIUM 9.5 mg/dL (8.5-10.1); CARBON DIOXIDE 27 mmol/L (21-32); CHLORIDE 107 mmol/L (98-107); CREATININE 0.8 mg/dL (0.6-1.0); GFR 74.7; GLUCOSE 97 mg/dL (70-99); POTASSIUM 4.2 mmol/L (3.5-5.1); SODIUM 145 mmol/L (136-145); TOTAL BILIRUBIN 0.7 mg/dL (0.2-1.0); TOTAL PROTEIN 7.7 g/dL (6.4-8.2)
[2019-08-22 07:47] LABS: VAL ACID 37 mcg/mL (50-100)
--- NOTE | 2019-08-22 08:03 | RAD ---
PROCEDURE: KUB STUDY DATE: 08/22/2019 CLINICAL INDICATION / HISTORY: Constipation. TECHNIQUE: Single AP image of the abdomen was obtained. COMPARISON: None FINDINGS: The visualized lung bases are clear. A nonobstructive bowel gas pattern is present. Moderate stool throughout the large bowel is evident. No organomegaly or pathologic calcifications are identified. No acute osseous abnormality. IMPRESSION: Radiographic findings compatible constipation. No acute abdominal process otherwise noted. Electronically signed by: Luis Armando Og MD (08/22/2019 8:00 AM) [id number]
[2019-08-22] MEDS: LISINOPRIL 20 MG TABLET PO SCH (08:08)
[2019-08-22] MEDS: DONEPEZIL HCL 10 MG TABLET PO SCH (08:08)
[2019-08-22] MEDS: QUEtiapine 25 MG TABLET. PO SCH ×2 (08:08→17:44)
[2019-08-22] MEDS: metroNIDAZOLE 0.75% TOPICAL 1 APP TUBE TP SCH (08:09)
[2019-08-22] MEDS: MEMANTINE 10 MG TABLET. PO SCH ×2 (08:09→20:45)
[2019-08-22] MEDS: POTASSIUM CHLORIDE 20 MEQ TABLET.ER. PO SCH ×2 (08:09→17:44)
[2019-08-22] MEDS: DIVALPROEX 125 MG CAP.SPRINK PO SCH ×2 (08:09→17:44)
[2019-08-22] MEDS: POLYETHYLENE GLYCOL 3350 17 GM PACKET. PO SCH (10:00)
[2019-08-22] MEDS: MAGNESIUM CITRATE 296 ML SOLUTION. PO PRN (12:29)
[2019-08-22 17:32] LABS: COLOR,URINE YELLOW
[2019-08-22 17:33] LABS: BILIRUBIN,URINE NEG (NEG); CLARITY,URINE HAZY; GLUCOSE,URINE NEG (NEG)
[2019-08-22 17:34] LABS: BACTERIA,URINE 0 /HPF (0-FEW); NITRITE,URINE NEG (NEG); SQUAMOUS EPITHELIAL CELL,UR MOD /LPF
[2019-08-22] MEDS: MIRTAZAPINE 7.5 MG TABLET. PO SCH (20:45)
[2019-08-22] MEDS: MELATONIN 3 MG TABLET PO SCH (20:45)
[2019-08-22] MEDS: traZODone 50 MG TABLET. PO PRN (20:46)
[2019-08-22] MEDS: ACETAMINOPHEN 325 MG TABLET PO PRN (20:46)
--- NOTE | 2019-08-22 21:38 | PDOC ---
Exam Note: Steve Note: Please also refer to the separate dictated note~for this date of service dictated separately.~Patient seen individually. Discussed the patient with Nursing staff reviewed the chart.~Reviewed interim history and current functioning. Reviewed vital signs,~Labs/ Radiology~and current medications noted below. Continue current treatment with the changes noted in the dictated addendum note Assessment: Vital Signs/I&O: Vital Signs Date Time Temp Pulse Resp B/P (MAP) Pulse Ox O2 Delivery O2 Flow Rate FiO2 08/22/19 08:08 89 108/68 08/22/19 05:07 97.4 16 97 Room Air I & O 08/21/19 08/21/19 08/22/19 15:00 23:00 07:00 Intake Total 1180 ml 580 ml Balance 1180 ml 580 ml Labs: Laboratory Tests Test 08/22/19 07:15 08/22/19 14:24 White Blood Count 7.2 x10^3/uL (4.0-11.0) Red Blood Count 4.82 x10^6/uL (3.50-5.40) Hemoglobin 14.3 g/dL (12.0-15.5) Hematocrit 43.6 % (36.0-47.0) Mean Corpuscular Volume 91 fL (79-100) Mean Corpuscular Hemoglobin 30 pg (25-35) Mean Corpuscular Hemoglobin Concent 33 g/dL (31-37) Red Cell Distribution Width 13.5 % (11.5-14.5) Platelet Count 268 x10^3/uL (140-400) Neutrophils (%) (Auto) 78 % (31-73) H Lymphocytes (%) (Auto) 11 % (24-48) L Monocytes (%) (Auto) 10 % (0-9) H Eosinophils (%) (Auto) 1 % (0-3) Basophils (%) (Auto) 1 % (0-3) Neutrophils # (Auto) 5.6 x10^3uL (1.8-7.7) Lymphocytes # (Auto) 0.8 x10^3/uL (1.0-4.8) L Monocytes # (Auto) 0.7 x10^3/uL (0.0-1.1) Eosinophils # (Auto) 0.1 x10^3/uL (0.0-0.7) Basophils # (Auto) 0.0 x10^3/uL (0.0-0.2) Sodium Level 145 mmol/L (136-145) Potassium Level 4.2 mmol/L (3.5-5.1) Chloride Level 107 mmol/L (98-107) Carbon Dioxide Level 27 mmol/L (21-32) Anion Gap 11 (6-14) Blood Urea Nitrogen 24 mg/dL (7-20) H Creatinine 0.8 mg/dL (0.6-1.0) Estimated GFR (Cockcroft-Gault) 74.7 BUN/Creatinine Ratio 30 (6-20) H Glucose Level 97 mg/dL (70-99) Calcium Level 9.5 mg/dL (8.5-10.1) Total Bilirubin 0.7 mg/dL (0.2-1.0) Aspartate Amino Transferase (AST) 51 U/L (15-37) H Alanine Aminotransferase (ALT) 52 U/L (14-59) Alkaline Phosphatase 137 U/L (46-116) H Total Protein 7.7 g/dL (6.4-8.2) Albumin 3.7 g/dL (3.4-5.0) Albumin/Globulin Ratio 0.9 (1.0-1.7) L Valproic Acid Level 37 mcg/mL (50-100) L Valproic Acid Last Dose Date 08/21/19 Valproic Acid Last Dose Time 1700 Urine Collection Type Unknown Urine Color Yellow Urine Clarity Hazy Urine pH 5.5 Urine Specific [place] >=1.030 Urine Protein 30 mg/dl (NEG-TRACE) Urine Glucose (UA) Neg mg/dL (NEG) Urine Ketones (Stick) 40 mg/dL (NEG) Urine Blood Trace (NEG) Urine Nitrite Neg (NEG) Urine Bilirubin Neg (NEG) Urine Urobilinogen Dipstick 1.0 mg/dL (0.2 mg/dL) Urine Leukocyte Esterase Neg (NEG) Urine RBC 6-10 /HPF (0-2) Urine WBC 1-4 /HPF (0-4) Urine Squamous Epithelial Cells Mod /LPF Urine Bacteria 0 /HPF (0-FEW) Urine Mucus Marked /LPF Current Medications: Meds: Current Medications Medications (Trade) Dose Ordered Sig/Noel Route PRN Reason Start Time Stop Time Status Last Admin Dose Admin Magnesium Citrate (Citroma) 296 ml PRN DAILY PRN PO CONSTIP UNRELIEVED W/OTHER AGE 308/22/19 10:00 08/22/19 12:29 I have reviewed the current psychotropics carefully including drug interactions. Risk benefit ratio favors no change other than as noted in my dictated progress note. Diagnosis: Problems: (1) Major neurocognitive disorder due to Alzheimer's disease, with behavioral disturbance (2) Anxiety disorder (3) Major neurocognitive disorder, due to vascular disease, with behavioral disturbance, mild (4) Dementia in Alzheimer's disease with delusions (5) Dementia in Alzheimer's disease with depression (6) Dementia, vascular, with delusions (7) Dementia, vascular, with depression (8) Impulse control disorder MICHELLE CALDERÓN MD Aug 22, 2019 21:38
--- NOTE | 2019-08-22 23:51 | PN ---
DATE: 08/20/2019 PSYCHIATRIC PROGRESS NOTE. This late entry of 08/20/2019 covers the elements not covered in my initial note. SUBJECTIVE: I met with the patient in the evening of 08/20/2019. Per DEVORA Rodriguez, the patient slept 7-1/2 hours previous night. She has been agitated when there has been yelling by one of the other demented patients. Then she screams and claps her hands. At times, she seems to be speaking clear, made statements "My mother. Love you." She received Zyprexa x 1. REVIEW OF SYSTEMS: No CV, , pulmonary, eye, ENT system symptoms on review. Reliability poor. MENTAL STATUS EXAM: Oriented to herself. Insight, judgment, recent and remote memory, attention, concentration, fund of knowledge poor, consistent with her diagnosis mentioned in my initial note. PLAN: No change from initial note. MICHELLE CALDERÓN MD DR: JOSH/corrie JOB#: [id number] / [id number]
[2019-08-23] MEDS: LEVOTHYROXINE 125 MCG TABLET PO SCH (06:00)
[2019-08-23] MEDS: POTASSIUM CHLORIDE 20 MEQ TABLET.ER. PO SCH ×2 (08:00→17:30)
[2019-08-23] MEDS: DONEPEZIL HCL 10 MG TABLET PO SCH (09:00)
[2019-08-23] MEDS: MEMANTINE 10 MG TABLET. PO SCH ×2 (09:00→20:01)
[2019-08-23] MEDS: LISINOPRIL 20 MG TABLET PO SCH (09:00)
[2019-08-23] MEDS: QUEtiapine 25 MG TABLET. PO SCH ×2 (09:00→17:30)
[2019-08-23] MEDS: metroNIDAZOLE 0.75% TOPICAL 1 APP TUBE TP SCH (09:00)
[2019-08-23] MEDS: DIVALPROEX 125 MG CAP.SPRINK PO SCH ×2 (09:00→17:29)
[2019-08-23] MEDS: POLYETHYLENE GLYCOL 3350 17 GM PACKET. PO SCH (09:00)
--- NOTE | 2019-08-23 09:09 | PN ---
DATE: 08/21/2019 PSYCHIATRIC PROGRESS NOTE This late entry August 20 covers elements not covered in my initial note. SUBJECTIVE: I met with the patient evening of August 20. The patient was also staffed at a treatment team meeting with the entire team in the morning and the patient's , Eric attended. She is sleeping average 6 hours, appetite 50%, not aggressive. Her was concerned that she is listing to one side, possibly sedated and we will have to reassess her psychotropics if this persists. She has been wandering at times, making statements, "I love you." At one point, she hit and bit Mely, nursing staff. REVIEW OF SYSTEMS: No CV, , pulmonary, eye, ENT system symptoms on review. Reliability poor. MENTAL STATUS EXAM: Oriented to herself. Insight, judgment, recent and remote memory, attention, concentration, fund of knowledge poor, consistent with her diagnosis mentioned in my initial note. PLAN: No change from initial note. Valproic acid level will be checked August 21, adjust Depakote thereafter. MAN Lance CALDERÓN MD DR: JOSH/corrie JOB#: [id number] / [id number]
--- NOTE | 2019-08-23 09:14 | PN ---
DATE: 08/22/2019 PSYCHIATRIC PROGRESS NOTE This late entry 08/22/2019 covers elements not covered in my initial note. SUBJECTIVE: I met with the patient in the evening. The patient slept 6 hours previous night. She has been confused, wandering, not aggressive, but smiling at times. There is a question of UTI. UA has been checked with straight cath. KUB x-ray showed chronic constipation. She received mag citrate, started on MiraLax, received milk of mag and prune juice. REVIEW OF SYSTEMS: No CV, , PULMONARY, EYE, ENT system symptoms on review. Reliability poor. MENTAL STATUS EXAM: Oriented to herself. Insight, judgment, recent and remote memory, attention, concentration, fund of knowledge poor, consistent with her diagnoses. IMPRESSION: Major neurocognitive disorder, Alzheimer, vascular with delusion, depression, behavioral disturbance; anxiety disorder, unspecified; impulse control disorder, unspecified. Rest unchanged. Chronic constipation. PLAN: Continue current psychotropics. Valproic acid level has been drawn, we will adjust as clinically indicated. Rest unchanged. MAN Lance CALDERÓN MD DR: JOSH/corrie JOB#: [id number] / [id number]
[2019-08-23 14:01] VITALS: BP 97/68
[2019-08-23 16:35] VITALS: BP 126/85
[2019-08-23] MEDS: MIRTAZAPINE 7.5 MG TABLET. PO SCH (20:01)
[2019-08-23] MEDS: MELATONIN 3 MG TABLET PO SCH (20:01)
[2019-08-23] MEDS: traZODone 50 MG TABLET. PO PRN (21:41)
--- NOTE | 2019-08-23 21:48 | PN ---
DATE: 08/23/2019 SUBJECTIVE: The patient was seen today, met with the staff, chart reviewed, also covering for Dr. Sidhu. The patient received trazodone last night for sleep. The patient continues to be restless, pacing, increased confusion, combative while showering. The patient is able to ambulate. The patient's appetite decreased: OBSERVATION: VITAL SIGNS: Temperature 97, blood pressure 97/60, pulse 68, respirations 20, O2 sat 97%. GENERAL: Slept about 6 hours last night. MEDICATIONS: The patient's medications reviewed. Currently on Depakote 250 mg b.i.d., mirtazapine 15 mg at night, trazodone 50 mg at night p.r.n., Seroquel 25 mg b.i.d., Aricept 10 mg daily, Namenda 10 mg b.i.d., melatonin 6 mg at night. The patient is not having any side effects. LABORATORY DATA: The patient's lab reviewed. ASSESSMENT: 1. Major neurocognitive disorder, most likely Alzheimer's with delusions, depression, and behavioral disturbances. 2. Anxiety disorder, unspecified. PLAN: To continue with the current treatment. LENGTH OF STAY: A week to 10 days. JARROD JUAN MD DR: BELLE/corrie JOB#: [id number] / [id number]
[2019-08-24] MEDS: LEVOTHYROXINE 125 MCG TABLET PO SCH (05:06)
[2019-08-24 05:39] VITALS: BP 126/76
[2019-08-24] MEDS: MEMANTINE 10 MG TABLET. PO SCH ×2 (08:44→19:50)
[2019-08-24] MEDS: POTASSIUM CHLORIDE 20 MEQ TABLET.ER. PO SCH ×2 (08:45→17:29)
[2019-08-24] MEDS: metroNIDAZOLE 0.75% TOPICAL 1 APP TUBE TP SCH (08:45)
[2019-08-24] MEDS: DIVALPROEX 125 MG CAP.SPRINK PO SCH ×2 (08:45→17:29)
[2019-08-24] MEDS: LISINOPRIL 20 MG TABLET PO SCH (08:45)
[2019-08-24] MEDS: QUEtiapine 25 MG TABLET. PO SCH ×2 (08:45→17:29)
[2019-08-24] MEDS: DONEPEZIL HCL 10 MG TABLET PO SCH (08:45)
[2019-08-24] MEDS: POLYETHYLENE GLYCOL 3350 17 GM PACKET. PO SCH (08:45)
--- NOTE | 2019-08-24 15:37 | PN ---
DATE: 08/24/2019 SUBJECTIVE: The patient was seen today, met with the staff, chart reviewed. The patient reports continued behavior problems, wandering, pacing, restless, talking to imaginary figures and also emotional lability. Staff also reports she has improved. She is manageable. She is compliant with the medications. OBSERVATION: VITAL SIGNS: Temperature 97.4, blood pressure 126/76, pulse of 57, respiration 18, O2 sat 99%. GENERAL: Slept about 6 hours last night. The patient is not presenting with any medical issues at this time. CURRENT MEDICATIONS: Include Depakote 250 mg b.i.d., mirtazapine 15 mg at night, trazodone 50 mg at night p.r.n. p.o., Seroquel 25 mg b.i.d., Aricept 10 mg daily, and Namenda 10 mg b.i.d. p.o. The patient is also on melatonin 6 mg at night for sleep. The patient is not having any side effects to medications. LABORATORY DATA: The patient's lab reviewed. ASSESSMENT: 1. Major neurocognitive disorder, most likely Alzheimer's with delusions, depression, and behavioral disturbances. 2. Anxiety disorder, unspecified. PLAN: To continue with the current treatment plan. LENGTH OF STAY: 7-10 days. JARROD JUAN MD DR: BELLE/corrie JOB#: [id number] / [id number]
[2019-08-24 15:59] VITALS: BP 133/59
[2019-08-24] MEDS: traZODone 50 MG TABLET. PO PRN (19:50)
[2019-08-24] MEDS: MIRTAZAPINE 7.5 MG TABLET. PO SCH (19:50)
[2019-08-24] MEDS: MELATONIN 3 MG TABLET PO SCH (19:50)
[2019-08-24 20:20] VITALS: BP 133/64
[2019-08-25] MEDS: LEVOTHYROXINE 125 MCG TABLET PO SCH (05:03)
[2019-08-25 06:03] VITALS: BP 134/61
[2019-08-25] MEDS: POLYETHYLENE GLYCOL 3350 17 GM PACKET. PO SCH (09:00)
[2019-08-25] MEDS: metroNIDAZOLE 0.75% TOPICAL 1 APP TUBE TP SCH (09:00)
[2019-08-25] MEDS: DIVALPROEX 125 MG CAP.SPRINK PO SCH ×2 (09:01→17:23)
[2019-08-25] MEDS: QUEtiapine 25 MG TABLET. PO SCH ×2 (09:01→17:23)
[2019-08-25] MEDS: POTASSIUM CHLORIDE 20 MEQ TABLET.ER. PO SCH ×2 (09:01→17:23)
[2019-08-25] MEDS: DONEPEZIL HCL 10 MG TABLET PO SCH (09:01)
[2019-08-25] MEDS: MEMANTINE 10 MG TABLET. PO SCH ×2 (09:01→20:37)
[2019-08-25] MEDS: LISINOPRIL 20 MG TABLET PO SCH (09:01)
[2019-08-25 16:43] VITALS: BP 151/76
[2019-08-25] MEDS: MIRTAZAPINE 7.5 MG TABLET. PO SCH (20:37)
[2019-08-25] MEDS: MELATONIN 3 MG TABLET PO SCH (20:37)
--- NOTE | 2019-08-25 22:01 | PDOC ---
Exam Note: Steve Note: Please also refer to the separate dictated note~for this date of service dictated separately.~Patient seen individually. Discussed the patient with Nursing staff reviewed the chart.~Reviewed interim history and current functioning. Reviewed vital signs,~Labs/ Radiology~and current medications noted below. Continue current treatment with the changes noted in the dictated addendum note Assessment: Vital Signs/I&O: Vital Signs Date Time Temp Pulse Resp B/P (MAP) Pulse Ox O2 Delivery O2 Flow Rate FiO2 08/25/19 16:43 63 20 151/76 (101) 100 08/25/19 06:03 97.8 08/24/19 05:39 Room Air I & O 08/24/19 08/24/19 08/25/19 15:00 23:00 07:00 Intake Total 600 ml 360 ml 240 ml Balance 600 ml 360 ml 240 ml Current Medications: I have reviewed the current psychotropics carefully including drug interactions. Risk benefit ratio favors no change other than as noted in my dictated progress note. Diagnosis: Problems: (1) Major neurocognitive disorder due to Alzheimer's disease, with behavioral disturbance (2) Anxiety disorder (3) Major neurocognitive disorder, due to vascular disease, with behavioral disturbance, mild (4) Dementia in Alzheimer's disease with delusions (5) Dementia in Alzheimer's disease with depression (6) Dementia, vascular, with delusions (7) Dementia, vascular, with depression (8) Impulse control disorder MICHELLE CALDERÓN MD Aug 25, 2019 22:01
[2019-08-26] MEDS: LEVOTHYROXINE 125 MCG TABLET PO SCH (05:13)
[2019-08-26] MEDS: DIVALPROEX 125 MG CAP.SPRINK PO SCH ×2 (08:48→17:40)
[2019-08-26] MEDS: DONEPEZIL HCL 10 MG TABLET PO SCH (08:48)
[2019-08-26] MEDS: POLYETHYLENE GLYCOL 3350 17 GM PACKET. PO SCH (08:48)
[2019-08-26] MEDS: MEMANTINE 10 MG TABLET. PO SCH ×2 (08:48→21:00)
[2019-08-26] MEDS: POTASSIUM CHLORIDE 20 MEQ TABLET.ER. PO SCH ×3 (08:48→17:41)
[2019-08-26] MEDS: metroNIDAZOLE 0.75% TOPICAL 1 APP TUBE TP SCH (08:49)
[2019-08-26] MEDS: QUEtiapine 25 MG TABLET. PO SCH ×2 (08:49→17:41)
[2019-08-26] MEDS: LISINOPRIL 20 MG TABLET PO SCH (08:49)
[2019-08-26] MEDS: MELATONIN 3 MG TABLET PO SCH (21:00)
[2019-08-26] MEDS: MIRTAZAPINE 7.5 MG TABLET. PO SCH (21:00)
--- NOTE | 2019-08-26 21:50 | PDOC ---
Exam Note: Steve Note: Please also refer to the separate dictated note~for this date of service dictated separately.~Patient seen individually. Discussed the patient with Nursing staff reviewed the chart.~Reviewed interim history and current functioning. Reviewed vital signs,~Labs/ Radiology~and current medications noted below. Continue current treatment with the changes noted in the dictated addendum note Assessment: Vital Signs/I&O: Vital Signs Date Time Temp Pulse Resp B/P (MAP) Pulse Ox O2 Delivery O2 Flow Rate FiO2 08/26/19 08:49 69 151/76 08/26/19 06:30 96.8 20 94 08/24/19 05:39 Room Air I & O 08/25/19 08/25/19 08/26/19 15:00 23:00 07:00 Intake Total 480 ml 1080 ml Balance 480 ml 1080 ml Current Medications: I have reviewed the current psychotropics carefully including drug interactions. Risk benefit ratio favors no change other than as noted in my dictated progress note. Diagnosis: Problems: (1) Major neurocognitive disorder due to Alzheimer's disease, with behavioral disturbance (2) Anxiety disorder (3) Major neurocognitive disorder, due to vascular disease, with behavioral disturbance, mild (4) Dementia in Alzheimer's disease with delusions (5) Dementia in Alzheimer's disease with depression (6) Dementia, vascular, with delusions (7) Dementia, vascular, with depression (8) Impulse control disorder MICHELLE CALDERÓN MD Aug 26, 2019 21:49
[2019-08-26 22:08] VITALS: BP 100/66
[2019-08-27] MEDS: LEVOTHYROXINE 125 MCG TABLET PO SCH (04:46)
[2019-08-27 06:01] VITALS: BP 121/75
[2019-08-27] MEDS: LISINOPRIL 20 MG TABLET PO SCH (08:00)
[2019-08-27] MEDS: QUEtiapine 25 MG TABLET. PO SCH ×2 (08:01→17:11)
[2019-08-27] MEDS: MEMANTINE 10 MG TABLET. PO SCH ×2 (08:01→20:49)
[2019-08-27] MEDS: DIVALPROEX 125 MG CAP.SPRINK PO SCH ×2 (08:01→17:09)
[2019-08-27] MEDS: DONEPEZIL HCL 10 MG TABLET PO SCH (08:01)
[2019-08-27] MEDS: metroNIDAZOLE 0.75% TOPICAL 1 APP TUBE TP SCH (08:01)
[2019-08-27] MEDS: POTASSIUM CHLORIDE 20 MEQ TABLET.ER. PO SCH ×2 (08:01→17:09)
[2019-08-27] MEDS: POLYETHYLENE GLYCOL 3350 17 GM PACKET. PO SCH (08:01)
--- NOTE | 2019-08-27 20:06 | PN ---
DATE: 08/26/2019 PSYCHIATRIC PROGRESS NOTE This late entry 08/26/2019 covers the elements not covered in my initial note. SUBJECTIVE: I met with the patient in the evening of 08/26/2019. The patient slept 7-3/4 hours previous night per DEVORA Daugherty. The patient remains confused, walking in the hallways, oblivious, anxious, but redirectable. She gets more agitated during showers. She slept ___ in the afternoon. REVIEW OF SYSTEMS: No CV, , pulmonary, eye, ENT system symptoms on review. MENTAL STATUS EXAM: Oriented to herself. Insight, judgment, recent and remote memory, attention, concentration, fund of knowledge poor, consistent with her diagnosis. PLAN: Repeat labs, valproic acid level is subtherapeutic at 37 on Depakote Sprinkles 250 mg twice a day. We will increase to 375 mg twice a day. Check CBC, CMP, valproic acid level in 3 days and adjust to reach therapeutic level. Increase a.m. Seroquel from 25 mg to 37.5 mg. Continue 5:00 p.m. Seroquel at 25 mg. Adjust further as clinically indicated. I received a message from Varsha, rn social services and I left her a note back updating her on this changes in the patient's psychotropics initiated and plan for further care. MICHELLE CALDERÓN MD DR: JOSH/corrie JOB#: [id number] / [id number]
[2019-08-27] MEDS: MELATONIN 3 MG TABLET PO SCH (20:49)
[2019-08-27] MEDS: MIRTAZAPINE 7.5 MG TABLET. PO SCH (20:49)
[2019-08-27] MEDS: traZODone 50 MG TABLET. PO PRN ×2 (20:52→22:05)
--- NOTE | 2019-08-27 22:09 | PDOC ---
Exam Note: Steve Note: Please also refer to the separate dictated note~for this date of service dictated separately.~Patient seen individually. Discussed the patient with Nursing staff reviewed the chart.~Reviewed interim history and current functioning. Reviewed vital signs,~Labs/ Radiology~and current medications noted below. Continue current treatment with the changes noted in the dictated addendum note Assessment: Vital Signs/I&O: Vital Signs Date Time Temp Pulse Resp B/P (MAP) Pulse Ox O2 Delivery O2 Flow Rate FiO2 08/27/19 08:00 89 121/75 08/27/19 06:01 97.5 20 97 08/26/19 22:08 Room Air I & O 08/26/19 08/26/19 08/27/19 15:00 23:00 07:00 Intake Total 480 ml 0 ml Balance 480 ml 0 ml Current Medications: Meds: Current Medications Medications (Trade) Dose Ordered Sig/Noel Route PRN Reason Start Time Stop Time Status Last Admin Dose Admin Divalproex Sodium (Depakote Sprinkles) 375 mg 0900,1700 PO 08/27/19 09:00 08/27/19 17:09 Quetiapine Fumarate (SEROquel) 37.5 mg DAILY PO 08/27/19 09:00 08/27/19 08:01 Quetiapine Fumarate (SEROquel) 25 mg DAILYWSUP PO 08/27/19 17:00 08/27/19 17:11 I have reviewed the current psychotropics carefully including drug interactions. Risk benefit ratio favors no change other than as noted in my dictated progress note. Diagnosis: Problems: (1) Major neurocognitive disorder due to Alzheimer's disease, with behavioral disturbance (2) Anxiety disorder (3) Major neurocognitive disorder, due to vascular disease, with behavioral disturbance, mild (4) Dementia in Alzheimer's disease with delusions (5) Dementia in Alzheimer's disease with depression (6) Dementia, vascular, with delusions (7) Dementia, vascular, with depression (8) Impulse control disorder MICHELLE CALDERÓN MD Aug 27, 2019 22:09
[2019-08-28] MEDS: LEVOTHYROXINE 125 MCG TABLET PO SCH (05:12)
[2019-08-28 07:03] VITALS: BP 90/55
[2019-08-28] MEDS: LISINOPRIL 20 MG TABLET PO SCH (09:00)
[2019-08-28 09:56] LABS: BASO # 0.1 x10^3/uL (0.0-0.2); BASO % 1 % (0-3); EOS # 0.1 x10^3/uL (0.0-0.7); EOS % 1 % (0-3); HEMATOCRIT 41.6 % (36.0-47.0); HEMOGLOBIN 13.7 g/dL (12.0-15.5); LYMPH # 0.8 x10^3/uL (1.0-4.8); LYMPH % 11 % (24-48); MEAN CORPUSCULAR HEMOGLOBIN 30 pg (25-35); MEAN CORPUSCULAR HGB CONC 33 g/dL (31-37); MEAN CORPUSCULAR VOLUME 90 fL (79-100); MONO # 0.6 x10^3/uL (0.0-1.1); MONO % 8 % (0-9); NEUT # 6.2 x10^3uL (1.8-7.7); NEUT % 80 % (31-73); PLATELET COUNT 246 x10^3/uL (140-400); RED BLOOD COUNT 4.62 x10^6/uL (3.50-5.40); WHITE BLOOD COUNT 7.8 x10^3/uL (4.0-11.0)
[2019-08-28] MEDS: POLYETHYLENE GLYCOL 3350 17 GM PACKET. PO SCH (10:08)
[2019-08-28] MEDS: DIVALPROEX 125 MG CAP.SPRINK PO SCH ×2 (10:08→17:14)
[2019-08-28] MEDS: DONEPEZIL HCL 10 MG TABLET PO SCH (10:09)
[2019-08-28] MEDS: QUEtiapine 25 MG TABLET. PO SCH ×2 (10:09→17:14)
[2019-08-28] MEDS: MEMANTINE 10 MG TABLET. PO SCH ×2 (10:09→21:00)
[2019-08-28] MEDS: POTASSIUM CHLORIDE 20 MEQ TABLET.ER. PO SCH ×2 (10:10→17:15)
[2019-08-28] MEDS: metroNIDAZOLE 0.75% TOPICAL 1 APP TUBE TP SCH (10:11)
[2019-08-28 10:12] LABS: ALBUMIN 3.6 g/dL (3.4-5.0); ALBUMIN/GLOBULIN RATIO 0.9 (1.0-1.7); ALK PHOS 137 U/L (46-116); ALT (SGPT) 33 U/L (14-59); ANION GAP 10 (6-14); AST (SGOT) 21 U/L (15-37); BLOOD UREA NITROGEN 33 mg/dL (7-20); BUN/CREATININE RATIO 37 (6-20); CALCIUM 9.2 mg/dL (8.5-10.1); CARBON DIOXIDE 28 mmol/L (21-32); CHLORIDE 106 mmol/L (98-107); CREATININE 0.9 mg/dL (0.6-1.0); GFR 65.2; GLUCOSE 98 mg/dL (70-99); POTASSIUM 4.1 mmol/L (3.5-5.1); SODIUM 144 mmol/L (136-145); TOTAL BILIRUBIN 0.4 mg/dL (0.2-1.0); TOTAL PROTEIN 7.5 g/dL (6.4-8.2)
[2019-08-28 11:18] LABS: VAL ACID 37 mcg/mL (50-100)
--- NOTE | 2019-08-28 11:27 | TX PLAN ---
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 Change Sleep, Anxiety/Panic, Combative, Confusion/Disoriented, Poor impulse control Problem in Patient's Words: Nicolasa is unable to express herself in a sensical manner related to advanced dementia. Per Nicolasa's care facility, [facility], Nicolasa's behavior is a danger to herslef and others. They are unable to manage her behaviors at present time. Additional Admission Comments: Per intake record, Nicolasa has been combative towards staff/physician/spouse, increasngly agitated, screaming out, throwing household items, broke a vase and chair, insomnia, and uncontrollably eating. Problems Active Problems: Pacing the unit Restless Agitated Beating fists on table, nursning station windows Bit nursning staff Inactive Problems: Medication compliant Pt Strengths/Limitations Ability for [place]: Poor Cognitive Functioning/Ability: Poor Communication Skills/Ability: Poor Financial Resources: Fair Insight/Judgement: Poor Intellectual Ability: Poor Physical Health: Fair Social Skills: Poor Stability in Family: Good Verbal Skills: Poor Discharge Criteria Discharge Criteria: Adequate arrangements @DC, Improved behavior, Improved mood/thought Preliminary Discharge Plan Preliminary DC Plan: Memory Care Special Precautions Special Precautions: Agitation/Assault Fall Risk: High Initial D/C Plan [facility] Identified Discharge Needs: Follow up with PCP and out patient psychaitry if available. Currently Utilized Resources Currently Utilized Resources/P: [facility] provides 24 hour care[address] PCP access Dr. Morales, neurologist, follows. Referrals Community Resources: Out patient psychiatry if available Identified Problems/Hx/Goals Objectives/Short-Term Goals Short Term Goals: Control abnormal behavior, Dec. Aggression, Dec. Outbursts, Medication Stabilization, Monitor Med Effects Short Term Goals in Patient's: Per POA, "Hoping she gets some peace." Interventions/Frequency Staff Interventions/Frequency&: Nursing provides routine safety checks, adl support, medication administration, and assessments. Psychiatry 3-5 times weekly. SW visits twice weekly. 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 Education: Nicolasa graduated high school and obtained a bachelors degree in health science from [place], [place]. Community Follow-up PCP Neurology with Dr. Morales Out patient psychiatry if available Community Provider/Family Inpu: Time, spouse/POA, participated in treatment team call on this date. [facility] has approved Nicolasa thru 08/27/19, review is due at that time. 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 She is restless, pacing, calling out, clapping her hands, and is agitated. Both depakote and serequel have been increased and lab work is to be completed today. Nicolasa has been approved with thru 09/03/19, next review is due at that time. D/C plan will relate to behaviors and wether or not [facility] care is able to meet Nicolasa's care needs as dementia progresses. Spouse, Eric, was involved in team meeting held today via phone. Eric has also reached out to [facility] and [facility] as alternate care facilities if Nicolasa is unable to return to [facility]. NICHOL EMERY Aug 28, 2019 11:27
[2019-08-28 16:05] VITALS: BP 156/81
[2019-08-28] MEDS: MAGNESIUM CITRATE 296 ML SOLUTION. PO PRN (17:18)
[2019-08-28 20:53] VITALS: BP 100/68
[2019-08-28] MEDS: MELATONIN 3 MG TABLET PO SCH (21:00)
[2019-08-28] MEDS: MIRTAZAPINE 7.5 MG TABLET. PO SCH (21:00)
--- NOTE | 2019-08-28 23:07 | PDOC ---
Exam Note: Steve Note: Please also refer to the separate dictated note~for this date of service dictated separately.~Patient seen individually. Discussed the patient with Nursing staff reviewed the chart.~Reviewed interim history and current functioning. Reviewed vital signs,~Labs/ Radiology~and current medications noted below. Continue current treatment with the changes noted in the dictated addendum note Assessment: Vital Signs/I&O: Vital Signs Date Time Temp Pulse Resp B/P (MAP) Pulse Ox O2 Delivery O2 Flow Rate FiO2 08/28/19 20:53 64 18 100/68 (79) 98 08/28/19 16:05 98.6 08/28/19 07:03 Room Air I & O 08/27/19 08/27/19 08/28/19 15:00 23:00 07:00 Intake Total 600 ml 1440 ml Balance 600 ml 1440 ml Labs: Laboratory Tests Test 08/28/19 09:43 White Blood Count 7.8 x10^3/uL (4.0-11.0) Red Blood Count 4.62 x10^6/uL (3.50-5.40) Hemoglobin 13.7 g/dL (12.0-15.5) Hematocrit 41.6 % (36.0-47.0) Mean Corpuscular Volume 90 fL (79-100) Mean Corpuscular Hemoglobin 30 pg (25-35) Mean Corpuscular Hemoglobin Concent 33 g/dL (31-37) Red Cell Distribution Width 13.0 % (11.5-14.5) Platelet Count 246 x10^3/uL (140-400) Neutrophils (%) (Auto) 80 % (31-73) H Lymphocytes (%) (Auto) 11 % (24-48) L Monocytes (%) (Auto) 8 % (0-9) Eosinophils (%) (Auto) 1 % (0-3) Basophils (%) (Auto) 1 % (0-3) Neutrophils # (Auto) 6.2 x10^3uL (1.8-7.7) Lymphocytes # (Auto) 0.8 x10^3/uL (1.0-4.8) L Monocytes # (Auto) 0.6 x10^3/uL (0.0-1.1) Eosinophils # (Auto) 0.1 x10^3/uL (0.0-0.7) Basophils # (Auto) 0.1 x10^3/uL (0.0-0.2) Sodium Level 144 mmol/L (136-145) Potassium Level 4.1 mmol/L (3.5-5.1) Chloride Level 106 mmol/L (98-107) Carbon Dioxide Level 28 mmol/L (21-32) Anion Gap 10 (6-14) Blood Urea Nitrogen 33 mg/dL (7-20) H Creatinine 0.9 mg/dL (0.6-1.0) Estimated GFR (Cockcroft-Gault) 65.2 BUN/Creatinine Ratio 37 (6-20) H Glucose Level 98 mg/dL (70-99) Calcium Level 9.2 mg/dL (8.5-10.1) Total Bilirubin 0.4 mg/dL (0.2-1.0) Aspartate Amino Transferase (AST) 21 U/L (15-37) Alanine Aminotransferase (ALT) 33 U/L (14-59) Alkaline Phosphatase 137 U/L (46-116) H Total Protein 7.5 g/dL (6.4-8.2) Albumin 3.6 g/dL (3.4-5.0) Albumin/Globulin Ratio 0.9 (1.0-1.7) L Valproic Acid Level 37 mcg/mL (50-100) L Valproic Acid Last Dose Date 08/27/19 Valproic Acid Last Dose Time 1700 Current Medications: I have reviewed the current psychotropics carefully including drug interactions. Risk benefit ratio favors no change other than as noted in my dictated progress note. Diagnosis: Problems: (1) Major neurocognitive disorder due to Alzheimer's disease, with behavioral disturbance (2) Anxiety disorder (3) Major neurocognitive disorder, due to vascular disease, with behavioral disturbance, mild (4) Dementia in Alzheimer's disease with delusions (5) Dementia in Alzheimer's disease with depression (6) Dementia, vascular, with delusions (7) Dementia, vascular, with depression (8) Impulse control disorder MICHELLE CALDERÓN MD Aug 28, 2019 23:07
[2019-08-29] MEDS: GLYCERIN ADULT 1 SUPP.RECT. PR PRN (03:23)
[2019-08-29] MEDS: LEVOTHYROXINE 125 MCG TABLET PO SCH (05:34)
[2019-08-29 06:30] VITALS: BP 108/73
[2019-08-29] MEDS: LISINOPRIL 20 MG TABLET PO SCH (08:18)
[2019-08-29] MEDS: MEMANTINE 10 MG TABLET. PO SCH ×2 (08:18→21:00)
[2019-08-29] MEDS: POLYETHYLENE GLYCOL 3350 17 GM PACKET. PO SCH (08:18)
[2019-08-29] MEDS: QUEtiapine 25 MG TABLET. PO SCH ×2 (08:19→17:24)
[2019-08-29] MEDS: POTASSIUM CHLORIDE 20 MEQ TABLET.ER. PO SCH ×2 (08:19→17:24)
[2019-08-29] MEDS: DIVALPROEX 125 MG CAP.SPRINK PO SCH ×2 (08:20→17:24)
[2019-08-29] MEDS: DONEPEZIL HCL 10 MG TABLET PO SCH (08:20)
[2019-08-29] MEDS: metroNIDAZOLE 0.75% TOPICAL 1 APP TUBE TP SCH (08:36)
--- NOTE | 2019-08-29 11:53 | PN ---
DATE: 08/28/2019 PSYCHIATRIC PROGRESS NOTE This late entry, 08/28/2019, covers elements not covered in my initial note. SUBJECTIVE: I met with the patient evening of 08/28/2019 and staffed at a treatment team meeting with the entire team in the morning and the patient's , Eric attended the conference. We had a lengthy discussion about her progress, psychotropics. Per Samy RN, appetite is 50%, slept 7-1/2 hours previous night, average 6-1/2 hours. In the morning, she was anxious, restless, then better clapping her hands yesterday, but typical for her. Took a shower in the morning, received Zyprexa p.r.n. and trazodone at night. REVIEW OF SYSTEMS: No CV, , pulmonary, eye, ENT system symptoms on review. Reliability poor. MENTAL STATUS EXAM: Oriented to herself. Insight, judgment, recent and remote memory, attention, concentration, fund of knowledge poor, consistent with her diagnoses. IMPRESSION: Major neurocognitive disorder, Alzheimer, vascular with delusion, depression, behavioral disturbance. Rest unchanged. PLAN: Continue current psychotropics. We did adjust the trazodone at night. Seroquel has been increased. Depakote adjusted. Repeat labs level on the and then adjust to reach therapeutic level. MAN Lance CALDERÓN MD DR: JOSH/corrie JOB#: [id number] / [id number]
--- NOTE | 2019-08-29 11:53 | PN ---
DATE: 08/27/2019 This late entry 08/27/2019 covers elements not covered in my initial note. SUBJECTIVE: I met with the patient evening of 08/27/2019. Per DEVORA Pablo, the patient slept 8-1/2 hours previous night. Her bedtime meds and 5:00 p.m. meds were held the previous day because of sedation. The patient has been more agitated on 08/27/2019, probably as a consequence of having held those psychotropics. She has been clapping at people around her, but this is typical for her. Wandering, making high pitch noises at times. REVIEW OF SYSTEMS: No CV, , pulmonary, eye, ENT system symptoms on review. Reliability poor. MENTAL STATUS EXAM: Oriented to herself. Insight, judgment, recent and remote memory, attention, concentration, fund of knowledge poor, consistent with her diagnosis mentioned in my initial note. PLAN: No change from initial note. We will adjust Depakote to reach therapeutic level and then Seroquel for mood stabilization. MAN Lance CALDERÓN MD DR: JOSH/corrie JOB#: [id number] / [id number]
[2019-08-29 16:45] VITALS: BP 106/65
[2019-08-29] MEDS: MELATONIN 3 MG TABLET PO SCH (21:00)
[2019-08-29] MEDS: MIRTAZAPINE 7.5 MG TABLET. PO SCH (21:00)
--- NOTE | 2019-08-29 23:08 | PDOC ---
Exam Note: Steve Note: Please also refer to the separate dictated note~for this date of service dictated separately. Discussed the patient with Nursing staff reviewed the chart.~Reviewed interim history and current functioning. Reviewed vital signs,~Labs/ Radiology~and current medications noted below. Continue current treatment with the changes noted in the dictated addendum note Assessment: Vital Signs/I&O: Vital Signs Date Time Temp Pulse Resp B/P (MAP) Pulse Ox O2 Delivery O2 Flow Rate FiO2 08/29/19 16:45 97.6 79 18 106/65 (79) 97 08/29/19 06:30 Room Air I & O 08/28/19 08/28/19 08/29/19 15:00 23:00 07:00 Intake Total 480 ml 360 ml Balance 480 ml 360 ml Current Medications: I have reviewed the current psychotropics carefully including drug interactions. Risk benefit ratio favors no change other than as noted in my dictated progress note. Diagnosis: Problems: (1) Major neurocognitive disorder due to Alzheimer's disease, with behavioral disturbance (2) Anxiety disorder (3) Major neurocognitive disorder, due to vascular disease, with behavioral disturbance, mild (4) Dementia in Alzheimer's disease with delusions (5) Dementia in Alzheimer's disease with depression (6) Dementia, vascular, with delusions (7) Dementia, vascular, with depression (8) Impulse control disorder MICHELLE CALDERÓN MD Aug 29, 2019 23:08
[2019-08-30] MEDS: LEVOTHYROXINE 125 MCG TABLET PO SCH (06:00)
[2019-08-30 07:05] VITALS: BP 103/70
[2019-08-30] MEDS: metroNIDAZOLE 0.75% TOPICAL 1 APP TUBE TP SCH (09:00)
[2019-08-30] MEDS: LISINOPRIL 20 MG TABLET PO SCH (09:00)
[2019-08-30] MEDS: POTASSIUM CHLORIDE 20 MEQ TABLET.ER. PO SCH ×2 (09:45→17:38)
[2019-08-30] MEDS: DIVALPROEX 125 MG CAP.SPRINK PO SCH ×2 (09:45→17:37)
[2019-08-30] MEDS: DONEPEZIL HCL 10 MG TABLET PO SCH (09:45)
[2019-08-30] MEDS: QUEtiapine 25 MG TABLET. PO SCH ×2 (09:45→17:37)
[2019-08-30] MEDS: POLYETHYLENE GLYCOL 3350 17 GM PACKET. PO SCH (09:46)
[2019-08-30] MEDS: MEMANTINE 10 MG TABLET. PO SCH ×2 (09:46→20:14)
[2019-08-30 16:15] VITALS: BP 88/61
[2019-08-30] MEDS: MELATONIN 3 MG TABLET PO SCH (20:14)
[2019-08-30] MEDS: MIRTAZAPINE 7.5 MG TABLET. PO SCH (20:15)
--- NOTE | 2019-08-30 22:49 | PDOC ---
Exam Note: Steve Note: Please also refer to the separate dictated note~for this date of service dictated separately. Discussed the patient with Nursing staff reviewed the chart.~Reviewed interim history and current functioning. Reviewed vital signs,~Labs/ Radiology~and current medications noted below. Continue current treatment with the changes noted in the dictated addendum note Assessment: Vital Signs/I&O: Vital Signs Date Time Temp Pulse Resp B/P (MAP) Pulse Ox O2 Delivery O2 Flow Rate FiO2 08/30/19 16:15 98.4 74 18 88/61 (70) 98 08/29/19 06:30 Room Air I & O 08/29/19 08/29/19 08/30/19 15:00 23:00 07:00 Intake Total 840 ml 120 ml 100 ml Balance 840 ml 120 ml 100 ml Current Medications: I have reviewed the current psychotropics carefully including drug interactions. Risk benefit ratio favors no change other than as noted in my dictated progress note. Diagnosis: Problems: (1) Major neurocognitive disorder due to Alzheimer's disease, with behavioral disturbance (2) Anxiety disorder (3) Major neurocognitive disorder, due to vascular disease, with behavioral disturbance, mild (4) Dementia in Alzheimer's disease with delusions (5) Dementia in Alzheimer's disease with depression (6) Dementia, vascular, with delusions (7) Dementia, vascular, with depression (8) Impulse control disorder MICHELLE CALDERÓN MD Aug 30, 2019 22:49
[2019-08-31] MEDS: LEVOTHYROXINE 125 MCG TABLET PO SCH (05:36)
[2019-08-31] MEDS: POLYETHYLENE GLYCOL 3350 17 GM PACKET. PO SCH (08:23)
[2019-08-31] MEDS: POTASSIUM CHLORIDE 20 MEQ TABLET.ER. PO SCH ×2 (08:24→17:58)
[2019-08-31] MEDS: MEMANTINE 10 MG TABLET. PO SCH ×2 (08:24→20:04)
[2019-08-31] MEDS: DONEPEZIL HCL 10 MG TABLET PO SCH (08:24)
[2019-08-31] MEDS: DIVALPROEX 125 MG CAP.SPRINK PO SCH ×2 (08:24→17:58)
[2019-08-31] MEDS: QUEtiapine 25 MG TABLET. PO SCH ×2 (08:25→17:58)
[2019-08-31] MEDS: LISINOPRIL 20 MG TABLET PO SCH (09:00)
[2019-08-31] MEDS: metroNIDAZOLE 0.75% TOPICAL 1 APP TUBE TP SCH (09:00)
[2019-08-31 16:35] VITALS: BP 112/70
[2019-08-31] MEDS: MIRTAZAPINE 7.5 MG TABLET. PO SCH (20:04)
[2019-08-31] MEDS: MELATONIN 3 MG TABLET PO SCH (20:04)
--- NOTE | 2019-08-31 21:55 | PDOC ---
Exam Note: Steve Note: Please also refer to the separate dictated note~for this date of service dictated separately. Discussed the patient with Nursing staff reviewed the chart.~Reviewed interim history and current functioning. Reviewed vital signs,~Labs/ Radiology~and current medications noted below. Continue current treatment with the changes noted in the dictated addendum note Assessment: Vital Signs/I&O: Vital Signs Date Time Temp Pulse Resp B/P (MAP) Pulse Ox O2 Delivery O2 Flow Rate FiO2 08/31/19 16:35 98.1 95 18 112/70 (84) 97 Room Air I & O 08/30/19 08/30/19 08/31/19 15:00 23:00 07:00 Intake Total 120 ml 480 ml 120 ml Balance 120 ml 480 ml 120 ml Current Medications: Meds: Current Medications Medications (Trade) Dose Ordered Sig/Noel Route PRN Reason Start Time Stop Time Status Last Admin Dose Admin Divalproex Sodium (Depakote Sprinkles) 500 mg 0900,1700 PO 08/31/19 17:00 08/31/19 17:58 I have reviewed the current psychotropics carefully including drug interactions. Risk benefit ratio favors no change other than as noted in my dictated progress note. Diagnosis: Problems: (1) Major neurocognitive disorder due to Alzheimer's disease, with behavioral disturbance (2) Anxiety disorder (3) Dementia in Alzheimer's disease with delusions (4) Dementia in Alzheimer's disease with depression (5) Dementia, vascular, with delusions (6) Dementia, vascular, with depression (7) Impulse control disorder MICHELLE CALDERÓN MD Aug 31, 2019 21:55
[2019-09-01] MEDS: LEVOTHYROXINE 125 MCG TABLET PO SCH (05:38)
[2019-09-01 06:21] VITALS: BP 106/69
[2019-09-01] MEDS: POLYETHYLENE GLYCOL 3350 17 GM PACKET. PO SCH (08:36)
[2019-09-01] MEDS: DONEPEZIL HCL 10 MG TABLET PO SCH (08:36)
[2019-09-01] MEDS: DIVALPROEX 125 MG CAP.SPRINK PO SCH ×2 (08:36→17:16)
[2019-09-01] MEDS: POTASSIUM CHLORIDE 20 MEQ TABLET.ER. PO SCH ×2 (08:36→17:16)
[2019-09-01] MEDS: MEMANTINE 10 MG TABLET. PO SCH ×2 (08:36→21:00)
[2019-09-01] MEDS: QUEtiapine 25 MG TABLET. PO SCH ×2 (08:37→17:16)
[2019-09-01] MEDS: metroNIDAZOLE 0.75% TOPICAL 1 APP TUBE TP SCH (08:37)
[2019-09-01] MEDS: LISINOPRIL 20 MG TABLET PO SCH (09:00)
[2019-09-01 16:28] VITALS: BP 118/71
[2019-09-01 20:15] VITALS: BP 99/62
[2019-09-01] MEDS: MIRTAZAPINE 7.5 MG TABLET. PO SCH (21:00)
[2019-09-01] MEDS: MELATONIN 3 MG TABLET PO SCH (21:00)
--- NOTE | 2019-09-01 21:58 | PDOC ---
Exam Note: Steve Note: Please also refer to the separate dictated note~for this date of service dictated separately. Discussed the patient with Nursing staff reviewed the chart.~Reviewed interim history and current functioning. Reviewed vital signs,~Labs/ Radiology~and current medications noted below. Continue current treatment with the changes noted in the dictated addendum note Assessment: Vital Signs/I&O: Vital Signs Date Time Temp Pulse Resp B/P (MAP) Pulse Ox O2 Delivery O2 Flow Rate FiO2 09/01/19 20:15 97.8 60 20 99/62 (74) 99 Room Air I & O 08/31/19 08/31/19 09/01/19 15:00 23:00 07:00 Intake Total 540 ml 460 ml 120 ml Balance 540 ml 460 ml 120 ml Current Medications: I have reviewed the current psychotropics carefully including drug interactions. Risk benefit ratio favors no change other than as noted in my dictated progress note. Diagnosis: Problems: (1) Major neurocognitive disorder due to Alzheimer's disease, with behavioral disturbance (2) Anxiety disorder (3) Dementia in Alzheimer's disease with delusions (4) Dementia in Alzheimer's disease with depression (5) Dementia, vascular, with delusions (6) Dementia, vascular, with depression (7) Impulse control disorder MICHELLE CALDERÓN MD Sep 01, 2019 21:58
[2019-09-02] MEDS: LEVOTHYROXINE 125 MCG TABLET PO SCH (05:05)
[2019-09-02] MEDS: MAGNESIUM HYDROXIDE 2,400 MG/30 ML ORAL.SUSP. PO PRN (05:05)
[2019-09-02 05:52] VITALS: BP 123/71
[2019-09-02] MEDS: MEMANTINE 10 MG TABLET. PO SCH ×2 (08:01→19:32)
[2019-09-02] MEDS: POLYETHYLENE GLYCOL 3350 17 GM PACKET. PO SCH (08:01)
[2019-09-02] MEDS: POTASSIUM CHLORIDE 20 MEQ TABLET.ER. PO SCH ×2 (08:01→17:23)
[2019-09-02] MEDS: DONEPEZIL HCL 10 MG TABLET PO SCH (08:01)
[2019-09-02] MEDS: LISINOPRIL 20 MG TABLET PO SCH (08:02)
[2019-09-02] MEDS: QUEtiapine 25 MG TABLET. PO SCH ×2 (08:02→17:22)
[2019-09-02] MEDS: DIVALPROEX 125 MG CAP.SPRINK PO SCH ×2 (08:03→17:23)
[2019-09-02] MEDS: metroNIDAZOLE 0.75% TOPICAL 1 APP TUBE TP SCH (09:00)
[2019-09-02] MEDS: MIRTAZAPINE 7.5 MG TABLET. PO SCH (19:32)
[2019-09-02] MEDS: MELATONIN 3 MG TABLET PO SCH (19:32)
[2019-09-03] MEDS: LEVOTHYROXINE 125 MCG TABLET PO SCH (05:05)
[2019-09-03 05:51] LABS: BACTERIA,URINE 0 /HPF (0-FEW); BILIRUBIN,URINE NEG (NEG); CLARITY,URINE CLEAR; COLOR,URINE YELLOW; GLUCOSE,URINE NEG (NEG); NITRITE,URINE NEG (NEG); RBC,URINE 0 /HPF (0-2); SQUAMOUS EPITHELIAL CELL,UR OCC /LPF; UROBILINOGEN,URINE 0.2 mg/dL (0.2 mg/dL); WBC,URINE OCC /HPF (0-4)
[2019-09-03 06:00] VITALS: BP 123/73
--- NOTE | 2019-09-03 07:08 | PDOC ---
Exam Note: Steve Note: This is a late entry for 08/29/2019. Currently, the unit is shutdown for any admissions and discharges as directed by the Centers for Disease Control (CDC) and the [facility] ([facility]) because of Coronavirus (COVID-19) exposure on the unit. S/O: This is a Telepsychiatry Progress Note. This note covers elements not covered in my initial note. The patient was reviewed with nursing staff, reviewed the chart and TeleHealth Services provided for this date for the patient. Discussed with Cherelle LOZOYA. She has been drowsy in the evening. Trazodone was held and her meds are held at times because the blood pressure drops down. ROS: No CV, , Pulmonary, Eye system symptoms on review. MSE: Oriented to herself. Insight and judgment, recent and remote memory, attention and concentration, fund of knowledge is poor consistent with her diagnosis. Labs: Reviewed. Imp: Major neurocognitive disorder Alzheimer, vascular with delusion, depression, behavioral disturbance. Anxiety disorder unspecified. Impulse control disorder unspecified. Plan: No change from initial note. Assessment: Vital Signs/I&O: Vital Signs Date Time Temp Pulse Resp B/P (MAP) Pulse Ox O2 Delivery O2 Flow Rate FiO2 09/03/19 06:00 96.9 73 18 123/73 (90) 99 09/01/19 20:15 Room Air I & O 09/02/19 09/02/19 09/03/19 15:00 23:00 07:00 Intake Total 240 ml 240 ml Output Total 400 ml Balance 240 ml 240 ml -400 ml Labs: Laboratory Tests Test 09/03/19 05:00 Urine Collection Type U cath Urine Color Yellow Urine Clarity Clear Urine pH 6.0 Urine Specific [place] >=1.030 Urine Protein Neg (NEG-TRACE) Urine Glucose (UA) Neg mg/dL (NEG) Urine Ketones (Stick) 15 mg/dL (NEG) Urine Blood Neg (NEG) Urine Nitrite Neg (NEG) Urine Bilirubin Neg (NEG) Urine Urobilinogen Dipstick 0.2 mg/dL (0.2 mg/dL) Urine Leukocyte Esterase Neg (NEG) Urine RBC 0 /HPF (0-2) Urine WBC Occ /HPF (0-4) Urine Squamous Epithelial Cells Occ /LPF Urine Bacteria 0 /HPF (0-FEW) Current Medications: I have reviewed the current psychotropics carefully including drug interactions. Risk benefit ratio favors no change other than as noted in my dictated progress note. Diagnosis: Problems: (1) Major neurocognitive disorder due to Alzheimer's disease, with behavioral disturbance (2) Anxiety disorder (3) Dementia in Alzheimer's disease with delusions (4) Dementia in Alzheimer's disease with depression (5) Dementia, vascular, with delusions (6) Dementia, vascular, with depression (7) Impulse control disorder MICHELLE CALDERÓN MD Sep 03, 2019 07:08
--- NOTE | 2019-09-03 07:40 | PDOC ---
Exam Note: Steve Note: This is a late entry for 08/30/2019. Currently, the unit is shutdown for any admissions and discharges as directed by the Centers for Disease Control (CDC) and the [facility] of Health and Environment ([facility]) because of Coronavirus (COVID-19) exposure on the unit. S/O: This note covers elements not covered in my initial note. The patient was reviewed with nursing staff, reviewed the chart and TeleHealth Services provided for this date for the patient. She was clapping at times but this is typical for her, takes her medications crushed in pudding. ROS: No CV, , Pulmonary, Eye system symptoms on review. MSE: Oriented to herself. Insight and judgment, recent and remote memory, attention and concentration, fund of knowledge is poor consistent with her diagnosis. Labs: Reviewed. Imp: Major neurocognitive disorder Alzheimer, vascular with delusion, depression, behavioral disturbance. Anxiety disorder unspecified. Impulse control disorder unspecified. Plan: No change from initial note. Assessment: Vital Signs/I&O: Vital Signs Date Time Temp Pulse Resp B/P (MAP) Pulse Ox O2 Delivery O2 Flow Rate FiO2 09/03/19 06:00 96.9 73 18 123/73 (90) 99 09/01/19 20:15 Room Air I & O 09/02/19 09/02/19 09/03/19 15:00 23:00 07:00 Intake Total 240 ml 240 ml Output Total 400 ml Balance 240 ml 240 ml -400 ml Labs: Laboratory Tests Test 09/03/19 05:00 Urine Collection Type U cath Urine Color Yellow Urine Clarity Clear Urine pH 6.0 Urine Specific [place] >=1.030 Urine Protein Neg (NEG-TRACE) Urine Glucose (UA) Neg mg/dL (NEG) Urine Ketones (Stick) 15 mg/dL (NEG) Urine Blood Neg (NEG) Urine Nitrite Neg (NEG) Urine Bilirubin Neg (NEG) Urine Urobilinogen Dipstick 0.2 mg/dL (0.2 mg/dL) Urine Leukocyte Esterase Neg (NEG) Urine RBC 0 /HPF (0-2) Urine WBC Occ /HPF (0-4) Urine Squamous Epithelial Cells Occ /LPF Urine Bacteria 0 /HPF (0-FEW) Current Medications: I have reviewed the current psychotropics carefully including drug interactions. Risk benefit ratio favors no change other than as noted in my dictated progress note. Diagnosis: Problems: (1) Major neurocognitive disorder due to Alzheimer's disease, with behavioral disturbance (2) Anxiety disorder (3) Dementia in Alzheimer's disease with delusions (4) Dementia in Alzheimer's disease with depression (5) Dementia, vascular, with delusions (6) Dementia, vascular, with depression (7) Impulse control disorder MICHELLE CALDERÓN MD Sep 03, 2019 07:40
--- NOTE | 2019-09-03 08:07 | PDOC ---
Exam Note: Steve Note: This is a late entry for 08/31/2019. Currently, the unit is shutdown for any admissions and discharges as directed by the Centers for Disease Control (CDC) and the [facility] of [facility] and Environment ([facility]) because of Coronavirus (COVID-19) exposure on the unit. S/O: This note covers elements not covered in my initial note. The patient was reviewed with nursing staff, reviewed the chart and TeleHealth Services provided for this date for the patient. Discussed with Kanika LOZOYA. Slept 6 hours previous night. At one point she got agitated, tried to bite a nursing staff in the morning. Valproic acid level on 08/28/2019 was 37. We will increase the Depakote to 500 mg twice a day. Check CBC, CMP, valproic acid level in 3 days. ROS: No CV, , Pulmonary, Eye system symptoms on review. MSE: Oriented to herself. Insight and judgment, recent and remote memory, attention and concentration, fund of knowledge is poor consistent with her diagnosis. Labs: Reviewed. Imp: Major neurocognitive disorder Alzheimer, vascular with delusion, depression, behavioral disturbance. Anxiety disorder unspecified. Impulse control disorder unspecified. Plan: As noted with increase in Depakote repeat labs level. Rest unchanged for now. Assessment: Vital Signs/I&O: Vital Signs Date Time Temp Pulse Resp B/P (MAP) Pulse Ox O2 Delivery O2 Flow Rate FiO2 09/03/19 06:00 96.9 73 18 123/73 (90) 99 09/01/19 20:15 Room Air I & O 09/02/19 09/02/19 09/03/19 15:00 23:00 07:00 Intake Total 240 ml 240 ml Output Total 400 ml Balance 240 ml 240 ml -400 ml Labs: Laboratory Tests Test 09/03/19 05:00 Urine Collection Type U cath Urine Color Yellow Urine Clarity Clear Urine pH 6.0 Urine Specific [place] >=1.030 Urine Protein Neg (NEG-TRACE) Urine Glucose (UA) Neg mg/dL (NEG) Urine Ketones (Stick) 15 mg/dL (NEG) Urine Blood Neg (NEG) Urine Nitrite Neg (NEG) Urine Bilirubin Neg (NEG) Urine Urobilinogen Dipstick 0.2 mg/dL (0.2 mg/dL) Urine Leukocyte Esterase Neg (NEG) Urine RBC 0 /HPF (0-2) Urine WBC Occ /HPF (0-4) Urine Squamous Epithelial Cells Occ /LPF Urine Bacteria 0 /HPF (0-FEW) Current Medications: I have reviewed the current psychotropics carefully including drug interactions. Risk benefit ratio favors no change other than as noted in my dictated progress note. Diagnosis: Problems: (1) Major neurocognitive disorder due to Alzheimer's disease, with behavioral disturbance (2) Anxiety disorder (3) Dementia in Alzheimer's disease with delusions (4) Dementia in Alzheimer's disease with depression (5) Dementia, vascular, with delusions (6) Dementia, vascular, with depression (7) Impulse control disorder MICHELLE CALDERÓN MD Sep 03, 2019 08:07
--- NOTE | 2019-09-03 08:35 | PDOC ---
Exam Note: Steve Note: This is a late entry for 09/01/2019. Currently, the unit is shutdown for any admissions and discharges as directed by the Centers for Disease Control (CDC) and the [facility] of [facility] and Environment ([facility]) because of Coronavirus (COVID-19) exposure on the unit. S/O: This note covers elements not covered in my initial note. The patient was reviewed with nursing staff, reviewed the chart and TeleHealth Services provided for this date for the patient. Slept 6-1/4 hours, less yelling since the Depakote was increased. ROS: No CV, , Pulmonary, Eye system symptoms on review. MSE: Oriented to herself. Insight and judgment, recent and remote memory, attention and concentration, fund of knowledge is poor consistent with her diagnosis. Labs: Reviewed. Imp: Major neurocognitive disorder Alzheimer, vascular with delusion, depression, behavioral disturbance. Anxiety disorder unspecified. Impulse control disorder unspecified. Plan: Unchanged from my initial note. Assessment: Vital Signs/I&O: Vital Signs Date Time Temp Pulse Resp B/P (MAP) Pulse Ox O2 Delivery O2 Flow Rate FiO2 09/03/19 06:00 96.9 73 18 123/73 (90) 99 09/01/19 20:15 Room Air I & O 09/02/19 09/02/19 09/03/19 14:59 22:59 06:59 Intake Total 240 ml 240 ml Output Total 400 ml Balance 240 ml 240 ml -400 ml Labs: Laboratory Tests Test 09/03/19 05:00 Urine Collection Type U cath Urine Color Yellow Urine Clarity Clear Urine pH 6.0 Urine Specific [place] >=1.030 Urine Protein Neg (NEG-TRACE) Urine Glucose (UA) Neg mg/dL (NEG) Urine Ketones (Stick) 15 mg/dL (NEG) Urine Blood Neg (NEG) Urine Nitrite Neg (NEG) Urine Bilirubin Neg (NEG) Urine Urobilinogen Dipstick 0.2 mg/dL (0.2 mg/dL) Urine Leukocyte Esterase Neg (NEG) Urine RBC 0 /HPF (0-2) Urine WBC Occ /HPF (0-4) Urine Squamous Epithelial Cells Occ /LPF Urine Bacteria 0 /HPF (0-FEW) Current Medications: I have reviewed the current psychotropics carefully including drug interactions. Risk benefit ratio favors no change other than as noted in my dictated progress note. Diagnosis: Problems: (1) Major neurocognitive disorder due to Alzheimer's disease, with behavioral disturbance (2) Anxiety disorder (3) Dementia in Alzheimer's disease with delusions (4) Dementia in Alzheimer's disease with depression (5) Dementia, vascular, with delusions (6) Dementia, vascular, with depression (7) Impulse control disorder MICHELLE CALDERÓN MD Sep 03, 2019 08:35
[2019-09-03] MEDS: metroNIDAZOLE 0.75% TOPICAL 1 APP TUBE TP SCH (09:00)
--- NOTE | 2019-09-03 09:04 | PDOC ---
Exam Note: Steve Note: This is a late entry for 09/02/2019. Currently, the unit is shutdown for any admissions and discharges as directed by the Centers for Disease Control (CDC) and the [facility] of [facility] and Environment ([facility]) because of Coronavirus (COVID-19) exposure on the unit. S/O: This note covers elements not covered in my initial note. The patient was reviewed with nursing staff, reviewed the chart and TeleHealth Services provided for this date for the patient. She was seen on a video-conferencing call coordinated with Samy LOZOYA, nursing staff on the unit whose appropriately protected with personal protective equipment and mask on the unit. Patient slept 9 hours previous night. She has been less anxious, remains confused, pacing in the morning, slept in the evening. ROS: No CV, , Pulmonary, Eye system symptoms on review. MSE: Oriented to herself. Insight and judgment, recent and remote memory, attention and concentration, fund of knowledge is poor consistent with her diagnosis. Labs: Reviewed. Imp: Major neurocognitive disorder Alzheimer, vascular with delusion, depression, behavioral disturbance. Anxiety disorder unspecified. Impulse control disorder unspecified. Plan: Unchanged from my initial note. Depakote has been increased. Repeat labs level. Rest unchanged. Assessment: Vital Signs/I&O: Vital Signs Date Time Temp Pulse Resp B/P (MAP) Pulse Ox O2 Delivery O2 Flow Rate FiO2 09/03/19 06:00 96.9 73 18 123/73 (90) 99 09/01/19 20:15 Room Air I & O 09/02/19 09/02/19 09/03/19 14:59 22:59 06:59 Intake Total 240 ml 240 ml Output Total 400 ml Balance 240 ml 240 ml -400 ml Labs: Laboratory Tests Test 09/03/19 05:00 Urine Collection Type U cath Urine Color Yellow Urine Clarity Clear Urine pH 6.0 Urine Specific [place] >=1.030 Urine Protein Neg (NEG-TRACE) Urine Glucose (UA) Neg mg/dL (NEG) Urine Ketones (Stick) 15 mg/dL (NEG) Urine Blood Neg (NEG) Urine Nitrite Neg (NEG) Urine Bilirubin Neg (NEG) Urine Urobilinogen Dipstick 0.2 mg/dL (0.2 mg/dL) Urine Leukocyte Esterase Neg (NEG) Urine RBC 0 /HPF (0-2) Urine WBC Occ /HPF (0-4) Urine Squamous Epithelial Cells Occ /LPF Urine Bacteria 0 /HPF (0-FEW) Current Medications: I have reviewed the current psychotropics carefully including drug interactions. Risk benefit ratio favors no change other than as noted in my dictated progress note. Diagnosis: Problems: (1) Major neurocognitive disorder due to Alzheimer's disease, with behavioral disturbance (2) Anxiety disorder (3) Dementia in Alzheimer's disease with delusions (4) Dementia in Alzheimer's disease with depression (5) Dementia, vascular, with delusions (6) Dementia, vascular, with depression (7) Impulse control disorder MICHELLE CALDERÓN MD Sep 03, 2019 09:04
[2019-09-03] MEDS: DIVALPROEX 125 MG CAP.SPRINK PO SCH ×2 (09:23→17:47)
[2019-09-03] MEDS: POTASSIUM CHLORIDE 20 MEQ TABLET.ER. PO SCH ×2 (09:24→17:46)
[2019-09-03] MEDS: DONEPEZIL HCL 10 MG TABLET PO SCH (09:24)
[2019-09-03] MEDS: MEMANTINE 10 MG TABLET. PO SCH ×2 (09:24→19:57)
[2019-09-03] MEDS: LISINOPRIL 20 MG TABLET PO SCH (09:24)
[2019-09-03] MEDS: QUEtiapine 25 MG TABLET. PO SCH ×2 (09:25→17:46)
[2019-09-03] MEDS: POLYETHYLENE GLYCOL 3350 17 GM PACKET. PO SCH (09:25)
[2019-09-03 16:26] VITALS: BP 98/70
[2019-09-03] MEDS: MIRTAZAPINE 7.5 MG TABLET. PO SCH (19:57)
[2019-09-03] MEDS: MELATONIN 3 MG TABLET PO SCH (19:57)
--- NOTE | 2019-09-03 23:26 | PDOC ---
Exam Note: Steve Note: S/O: This note covers elements not covered in my initial note. The patient was reviewed with nursing staff, reviewed the chart. I saw the patient on the video teleconferencing call for TeleHealth Services and that she has been doing better. Discussed with Samy LOZOYA. Remains confused. Ambulates around the hallway, not aggressive, pacing in the hallway. Slept 7 hours. ROS: No CV, , Pulmonary, Eye system symptoms on review. MSE: Oriented to herself. Insight and judgment, recent and remote memory, attention and concentration, fund of knowledge is poor consistent with her d iagnosis. Labs: Reviewed. Imp: Major neurocognitive disorder Alzheimer, vascular with delusion, depression, behavioral disturbance. Anxiety disorder unspecified. Impulse control disorder unspecified. Plan: Unchanged from my initial note. Assessment: Vital Signs/I&O: Vital Signs Date Time Temp Pulse Resp B/P (MAP) Pulse Ox O2 Delivery O2 Flow Rate FiO2 09/03/19 16:26 97.7 75 16 98/70 (79) 97 Room Air I & O 09/02/19 09/02/19 09/03/19 14:59 22:59 06:59 Intake Total 240 ml 240 ml Output Total 400 ml Balance 240 ml 240 ml -400 ml Labs: Laboratory Tests Test 09/03/19 05:00 Urine Collection Type U cath Urine Color Yellow Urine Clarity Clear Urine pH 6.0 Urine Specific [place] >=1.030 Urine Protein Neg (NEG-TRACE) Urine Glucose (UA) Neg mg/dL (NEG) Urine Ketones (Stick) 15 mg/dL (NEG) Urine Blood Neg (NEG) Urine Nitrite Neg (NEG) Urine Bilirubin Neg (NEG) Urine Urobilinogen Dipstick 0.2 mg/dL (0.2 mg/dL) Urine Leukocyte Esterase Neg (NEG) Urine RBC 0 /HPF (0-2) Urine WBC Occ /HPF (0-4) Urine Squamous Epithelial Cells Occ /LPF Urine Bacteria 0 /HPF (0-FEW) Current Medications: I have reviewed the current psychotropics carefully including drug interactions. Risk benefit ratio favors no change other than as noted in my dictated progress note. 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
[2019-09-04] MEDS: LEVOTHYROXINE 125 MCG TABLET PO SCH (04:38)
[2019-09-04 06:29] LABS: BASO % 1 % (0-3); EOS # 0.1 x10^3/uL (0.0-0.7); EOS % 2 % (0-3); HEMATOCRIT 40.6 % (36.0-47.0); HEMOGLOBIN 13.2 g/dL (12.0-15.5); LYMPH # 0.7 x10^3/uL (1.0-4.8); LYMPH % 14 % (24-48); MEAN CORPUSCULAR HEMOGLOBIN 30 pg (25-35); MEAN CORPUSCULAR HGB CONC 33 g/dL (31-37); MEAN CORPUSCULAR VOLUME 91 fL (79-100); MONO # 0.4 x10^3/uL (0.0-1.1); MONO % 8 % (0-9); NEUT # 3.7 x10^3uL (1.8-7.7); NEUT % 75 % (31-73); PLATELET COUNT 189 x10^3/uL (140-400); RED BLOOD COUNT 4.45 x10^6/uL (3.50-5.40)
[2019-09-04 06:37] VITALS: BP 110/70
[2019-09-04 06:44] LABS: ALBUMIN 3.3 g/dL (3.4-5.0); ALBUMIN/GLOBULIN RATIO 0.9 (1.0-1.7); ALK PHOS 125 U/L (46-116); ALT (SGPT) 23 U/L (14-59); ANION GAP 8 (6-14); AST (SGOT) 14 U/L (15-37); BLOOD UREA NITROGEN 23 mg/dL (7-20); BUN/CREATININE RATIO 29 (6-20); CARBON DIOXIDE 28 mmol/L (21-32); CHLORIDE 107 mmol/L (98-107); CREATININE 0.8 mg/dL (0.6-1.0); GFR 74.7; GLUCOSE 90 mg/dL (70-99); POTASSIUM 4.3 mmol/L (3.5-5.1); SODIUM 143 mmol/L (136-145); TOTAL BILIRUBIN 0.2 mg/dL (0.2-1.0); TOTAL PROTEIN 6.8 g/dL (6.4-8.2)
[2019-09-04 06:47] LABS: VAL ACID 66 mcg/mL (50-100)
[2019-09-04] MEDS: DONEPEZIL HCL 10 MG TABLET PO SCH (07:57)
[2019-09-04] MEDS: POTASSIUM CHLORIDE 20 MEQ TABLET.ER. PO SCH ×2 (07:57→17:25)
[2019-09-04] MEDS: QUEtiapine 25 MG TABLET. PO SCH ×2 (07:57→17:25)
[2019-09-04] MEDS: MEMANTINE 10 MG TABLET. PO SCH ×2 (07:57→20:24)
[2019-09-04] MEDS: LISINOPRIL 20 MG TABLET PO SCH (07:58)
[2019-09-04] MEDS: POLYETHYLENE GLYCOL 3350 17 GM PACKET. PO SCH (07:58)
[2019-09-04] MEDS: DIVALPROEX 125 MG CAP.SPRINK PO SCH ×2 (07:58→17:25)
[2019-09-04] MEDS: metroNIDAZOLE 0.75% TOPICAL 1 APP TUBE TP SCH (08:00)
--- NOTE | 2019-09-04 13:22 | TX PLAN ---
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 Change Sleep, Anxiety/Panic, Combative, Confusion/Disoriented, Poor impulse control Problem in Patient's Words: Nicolasa is unable to express herself in a sensical manner related to advanced dementia. Per Nicolasa's care facility, [facility], Nicolasa's behavior is a danger to herslef and others. They are unable to manage her behaviors at present time. Additional Admission Comments: Per intake record, Nicolasa has been combative towards staff/physician/spouse, increasngly agitated, screaming out, throwing household items, broke a vase and chair, insomnia, and uncontrollably eating. Problems Active Problems: Pacing the unit Restless Agitated Beating fists on table, nursning station windows Bit nursning staff Inactive Problems: Medication compliant Pt Strengths/Limitations Ability for [place]: Poor Cognitive Functioning/Ability: Poor Communication Skills/Ability: Poor Financial Resources: Fair Insight/Judgement: Poor Intellectual Ability: Poor Physical Health: Fair Social Skills: Poor Stability in Family: Good Verbal Skills: Poor Discharge Criteria Discharge Criteria: Adequate arrangements @DC, Improved behavior, Improved mood/thought Preliminary Discharge Plan Preliminary DC Plan: Memory Care Special Precautions Special Precautions: Agitation/Assault Fall Risk: High Initial D/C Plan [facility] Identified Discharge Needs: Follow up with PCP and out patient psychaitry if available. Currently Utilized Resources Currently Utilized Resources/P: [facility] provides 24 hour care[address] PCP access Dr. Morales, neurologist, follows. Referrals Community Resources: Out patient psychiatry if available Identified Problems/Hx/Goals Objectives/Short-Term Goals Short Term Goals: Control abnormal behavior, Dec. Aggression, Dec. Outbursts, Medication Stabilization, Monitor Med Effects Short Term Goals in Patient's: Per POA, "Hoping she gets some peace." Interventions/Frequency Staff Interventions/Frequency&: Nursing provides routine safety checks, adl support, medication administration, and assessments. Psychiatry 3-5 times weekly. SW visits twice weekly. 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 Education: Nicolasa graduated high school and obtained a bachelors degree in health science from [place], [place]. Community Follow-up PCP Neurology with Dr. Morales Out patient psychiatry if available Community Provider/Family Inpu: Time, spouse/POA, participated in treatment team call on this date. [facility] has approved Nicolasa thru 08/27/19, review is due at that time. Treatment Plan Explained Patient/Orthotist Prosthetist had this treatment plan explained to him/her as indicated by the signature below and has been given the opportunity to ask questions and make suggestions: Date: Patient/Orthotist Prosthetist Signature: Status Update Update WEEKLY NOTE/UPDATE: Nicolasa is averaging 60% of meal intakes and six hours of sleep at night. She has been wandering, disorganized, and confused. She is medication compliant with medications that are crushed and put in pudding. Mandi is awaiting re-eval by [facility] to determine if she will be able to return there. This evaluation can not be completed until unit quarantine has been completed. Mandi is covered thru 09/10/19 under , next review date will be at that time. NICHOL EMERY Sep 04, 2019 13:22
[2019-09-04 16:31] VITALS: BP 133/81
[2019-09-04] MEDS: MELATONIN 3 MG TABLET PO SCH (20:24)
[2019-09-04] MEDS: MIRTAZAPINE 7.5 MG TABLET. PO SCH (20:24)
--- NOTE | 2019-09-05 00:08 | PDOC ---
Exam Note: Steve Note: S/O: This note is a late entry for DOS 09/04/2019, covers elements not covered in my initial note. Discussed the patient with nursing staff, reviewed the chart. In the morning, the patient had treatment team meeting with the entire team nursing staff, social service staff and myself and TeleHealth Services pro vided via audio-visual visit in the evening coordinated with Samy LOZOYA. Sleeping average 6 hours. Appetite 60%. She remains disorganized, wanders hallways. ROS: No CV, , Pulmonary, Eye system symptoms on review. MSE: Oriented to herself. Insight and judgment, recent and remote memory, attention and concentration, fund of knowledge is poor consistent with her diagnosis. Labs: Reviewed. Imp: Major neurocognitive disorder Alzheimer, vascular with delusion, depression, behavioral disturbance. Anxiety disorder unspecified. Impulse control disorder unspecified. Plan: Unchanged from my initial note. Awaiting repeat valproic acid level and we have increased the Seroquel. Adjust for the rest as clinically indicated. Assessment: Vital Signs/I&O: VS - Last 72 Hours, by Label Date Time Temp Pulse Resp B/P (MAP) Pulse Ox O2 Delivery O2 Flow Rate FiO2 09/04/19 16:31 97.5 86 21 133/81 (98) 96 Room Air 09/04/19 07:58 62 110/70 09/04/19 06:37 96.3 62 16 110/70 (83) 96 Room Air 09/03/19 16:26 97.7 75 16 98/70 (79) 97 Room Air 09/03/19 09:24 73 123/73 09/03/19 06:00 96.9 73 18 123/73 (90) 99 09/02/19 08:02 62 123/71 09/02/19 05:52 97.7 62 16 123/71 (88) 95 Vital Signs Date Time Temp Pulse Resp B/P (MAP) Pulse Ox O2 Delivery O2 Flow Rate FiO2 09/04/19 16:31 97.5 86 21 133/81 (98) 96 Room Air I & O 09/04/19 09/04/19 09/05/19 15:00 23:00 07:00 Intake Total 480 ml 240 ml Balance 480 ml 240 ml Labs: Laboratory Tests Test 09/04/19 06:09 White Blood Count 5.0 x10^3/uL (4.0-11.0) Red Blood Count 4.45 x10^6/uL (3.50-5.40) Hemoglobin 13.2 g/dL (12.0-15.5) Hematocrit 40.6 % (36.0-47.0) Mean Corpuscular Volume 91 fL (79-100) Mean Corpuscular Hemoglobin 30 pg (25-35) Mean Corpuscular Hemoglobin Concent 33 g/dL (31-37) Red Cell Distribution Width 13.0 % (11.5-14.5) Platelet Count 189 x10^3/uL (140-400) Neutrophils (%) (Auto) 75 % (31-73) H Lymphocytes (%) (Auto) 14 % (24-48) L Monocytes (%) (Auto) 8 % (0-9) Eosinophils (%) (Auto) 2 % (0-3) Basophils (%) (Auto) 1 % (0-3) Neutrophils # (Auto) 3.7 x10^3uL (1.8-7.7) Lymphocytes # (Auto) 0.7 x10^3/uL (1.0-4.8) L Monocytes # (Auto) 0.4 x10^3/uL (0.0-1.1) Eosinophils # (Auto) 0.1 x10^3/uL (0.0-0.7) Basophils # (Auto) 0.0 x10^3/uL (0.0-0.2) Sodium Level 143 mmol/L (136-145) Potassium Level 4.3 mmol/L (3.5-5.1) Chloride Level 107 mmol/L (98-107) Carbon Dioxide Level 28 mmol/L (21-32) Anion Gap 8 (6-14) Blood Urea Nitrogen 23 mg/dL (7-20) H Creatinine 0.8 mg/dL (0.6-1.0) Estimated GFR (Cockcroft-Gault) 74.7 BUN/Creatinine Ratio 29 (6-20) H Glucose Level 90 mg/dL (70-99) Calcium Level 9.0 mg/dL (8.5-10.1) Total Bilirubin 0.2 mg/dL (0.2-1.0) Aspartate Amino Transferase (AST) 14 U/L (15-37) L Alanine Aminotransferase (ALT) 23 U/L (14-59) Alkaline Phosphatase 125 U/L (46-116) H Total Protein 6.8 g/dL (6.4-8.2) Albumin 3.3 g/dL (3.4-5.0) L Albumin/Globulin Ratio 0.9 (1.0-1.7) L Valproic Acid Level 66 mcg/mL (50-100) Valproic Acid Last Dose Date 09/03/2019 Valproic Acid Last Dose Time 1700 Current Medications: I have reviewed the current psychotropics carefully including drug interactions. Risk benefit ratio favors no change other than as noted in my dictated progress note. 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
[2019-09-05] MEDS: LEVOTHYROXINE 125 MCG TABLET PO SCH (05:11)
[2019-09-05 05:57] VITALS: BP 102/69
[2019-09-05] MEDS: POTASSIUM CHLORIDE 20 MEQ TABLET.ER. PO SCH ×2 (07:38→17:40)
[2019-09-05] MEDS: LISINOPRIL 20 MG TABLET PO SCH (07:38)
[2019-09-05] MEDS: DONEPEZIL HCL 10 MG TABLET PO SCH (07:39)
[2019-09-05] MEDS: MEMANTINE 10 MG TABLET. PO SCH ×2 (07:39→20:00)
[2019-09-05] MEDS: QUEtiapine 25 MG TABLET. PO SCH ×2 (07:39→17:40)
[2019-09-05] MEDS: DIVALPROEX 125 MG CAP.SPRINK PO SCH ×2 (07:40→17:41)
[2019-09-05] MEDS: metroNIDAZOLE 0.75% TOPICAL 1 APP TUBE TP SCH (07:42)
[2019-09-05] MEDS: POLYETHYLENE GLYCOL 3350 17 GM PACKET. PO SCH (07:42)
[2019-09-05 16:03] VITALS: BP 110/72
[2019-09-05] MEDS: MELATONIN 3 MG TABLET PO SCH (20:00)
[2019-09-05] MEDS: MIRTAZAPINE 7.5 MG TABLET. PO SCH (20:01)
[2019-09-06] MEDS: LEVOTHYROXINE 125 MCG TABLET PO SCH (05:14)
[2019-09-06 06:22] VITALS: BP 107/75
[2019-09-06] MEDS: POLYETHYLENE GLYCOL 3350 17 GM PACKET. PO SCH (08:29)
[2019-09-06] MEDS: LISINOPRIL 20 MG TABLET PO SCH (08:30)
[2019-09-06] MEDS: MEMANTINE 10 MG TABLET. PO SCH ×2 (08:30→19:44)
[2019-09-06] MEDS: POTASSIUM CHLORIDE 20 MEQ TABLET.ER. PO SCH ×2 (08:30→17:24)
[2019-09-06] MEDS: DIVALPROEX 125 MG CAP.SPRINK PO SCH ×2 (08:30→17:24)
[2019-09-06] MEDS: DONEPEZIL HCL 10 MG TABLET PO SCH (08:30)
[2019-09-06] MEDS: QUEtiapine 25 MG TABLET. PO SCH ×2 (08:31→17:24)
[2019-09-06] MEDS: metroNIDAZOLE 0.75% TOPICAL 1 APP TUBE TP SCH (09:00)
[2019-09-06 16:11] VITALS: BP 124/84
[2019-09-06] MEDS: MIRTAZAPINE 7.5 MG TABLET. PO SCH (19:44)
[2019-09-06] MEDS: MELATONIN 3 MG TABLET PO SCH (19:44)
[2019-09-07] MEDS: LEVOTHYROXINE 125 MCG TABLET PO SCH (05:40)
[2019-09-07 05:55] VITALS: BP 128/88
--- NOTE | 2019-09-07 08:14 | PDOC ---
Exam Note: Steve Note: S/O: This note is a late entry for DOS 09/05/2019 covers elements not covered in my initial note. Discussed the patient with nursing staff, reviewed the chart. Discussed with Samy LOZOYA and met the patient in the morning evening individually via audio-visual visit coordinated with Samy LOZOYA. At some point, patient got agitated threw her food and Styrofoam cup on the ground but redirected. ROS: No CV, , Pulmonary, Eye system symptoms on review. MSE: Reasonably oriented. Insight and judgment, recent and remote memory, attention and concentration, fund of knowledge is poor consistent with her diagnosis. Labs: Reviewed. Imp: Major neurocognitive disorder Alzheimer, vascular with delusion, depression, behavioral disturbance. Anxiety disorder unspecified. Impulse control disorder unspecified. Plan: Unchanged from my initial note. Assessment: Vital Signs/I&O: Vital Signs Date Time Temp Pulse Resp B/P (MAP) Pulse Ox O2 Delivery O2 Flow Rate FiO2 09/07/19 05:55 97.7 60 16 128/88 (101) 98 09/06/19 16:11 Room Air I & O 09/06/19 09/06/19 09/07/19 15:00 23:00 07:00 Intake Total 600 ml 120 ml Balance 600 ml 120 ml Current Medications: I have reviewed the current psychotropics carefully including drug interactions. Risk benefit ratio favors no change other than as noted in my dictated progress note. Diagnosis: Problems: (1) Major neurocognitive disorder due to Alzheimer's disease, with behavioral disturbance (2) Anxiety disorder (3) Dementia in Alzheimer's disease with delusions (4) Dementia in Alzheimer's disease with depression (5) Dementia, vascular, with delusions (6) Dementia, vascular, with depression (7) Impulse control disorder MICHELLE CALDERÓN MD Sep 07, 2019 08:14
[2019-09-07] MEDS: MEMANTINE 10 MG TABLET. PO SCH ×2 (08:40→19:39)
[2019-09-07] MEDS: POTASSIUM CHLORIDE 20 MEQ TABLET.ER. PO SCH ×2 (08:40→17:22)
[2019-09-07] MEDS: DONEPEZIL HCL 10 MG TABLET PO SCH (08:40)
[2019-09-07] MEDS: DIVALPROEX 125 MG CAP.SPRINK PO SCH ×2 (08:40→17:22)
[2019-09-07] MEDS: POLYETHYLENE GLYCOL 3350 17 GM PACKET. PO SCH (08:40)
[2019-09-07] MEDS: metroNIDAZOLE 0.75% TOPICAL 1 APP TUBE TP SCH (08:41)
[2019-09-07] MEDS: QUEtiapine 25 MG TABLET. PO SCH ×2 (08:41→17:22)
--- NOTE | 2019-09-07 08:41 | PDOC ---
Exam Note: Steve Note: S/O: This note is a late entry for DOS 09/06/2019 covers elements not covered in my initial note. Discussed the patient with nursing staff, reviewed the chart. Discussed with Amy LOZOYA. Met with the patient via audio-visual visit in the evening coordinated with Lisa LOZOYA. Patient slept 7 hours. Appetite fair . ROS: No CV, , Pulmonary, Eye system symptoms on review. MSE: Oriented to herself. Insight and judgment, recent and remote memory, attention and concentration, fund of knowledge is poor consistent with her diagnosis. Labs: Reviewed. Imp: Major neurocognitive disorder Alzheimer, vascular with delusion, depression, behavioral disturbance. Anxiety disorder unspecified. Impulse control disorder unspecified. Plan: Unchanged from initial note. Assessment: Vital Signs/I&O: Vital Signs Date Time Temp Pulse Resp B/P (MAP) Pulse Ox O2 Delivery O2 Flow Rate FiO2 09/07/19 05:55 97.7 60 16 128/88 (101) 98 09/06/19 16:11 Room Air I & O 09/06/19 09/06/19 09/07/19 15:00 23:00 07:00 Intake Total 600 ml 120 ml Balance 600 ml 120 ml Current Medications: I have reviewed the current psychotropics carefully including drug interactions. Risk benefit ratio favors no change other than as noted in my dictated progress note. Diagnosis: Problems: (1) Major neurocognitive disorder due to Alzheimer's disease, with behavioral disturbance (2) Anxiety disorder (3) Dementia in Alzheimer's disease with delusions (4) Dementia in Alzheimer's disease with depression (5) Dementia, vascular, with delusions (6) Dementia, vascular, with depression (7) Impulse control disorder MICHELLE CALDERÓN MD Sep 07, 2019 08:41
[2019-09-07] MEDS: LISINOPRIL 20 MG TABLET PO SCH (09:00)
[2019-09-07 16:14] VITALS: BP 136/82
[2019-09-07] MEDS: MELATONIN 3 MG TABLET PO SCH (19:40)
[2019-09-07] MEDS: MIRTAZAPINE 7.5 MG TABLET. PO SCH (19:40)
--- NOTE | 2019-09-07 22:57 | PDOC ---
Exam Note: Steve Note: S/O: This note covers elements not covered in my initial note. The patient was seen on TeleHealth rounds evening of 09/07/2019 coordinated by Kanika LOZOYA. Nursing report was with Kanika LOZOYA. Patient slept 6-3/4 hours previous night. Appetite 100%. She remains confused, wanders up and down the hallway. Per Roger willard RN, patients Eric calls every day to get an update on her. ROS: No CV, , Pulmonary, Eye system symptoms on review. MSE: Oriented to herself. Insight and judgment, recent and remote memory, attention and concentration, fund of knowledge is poor consistent with her diagnosis. Labs: Reviewed. Imp: Major neurocognitive disorder Alzheimer, vascular with delusion, depression, behavioral disturbance. Anxiety disorder unspecified. Impulse control disorder unspecified. Plan: Continue psychotropics. Valproic acid level therapeutic at 66. Seroquel was increased. Maintain Remeron, Depakote, Namenda, Aricept, melatonin, Zyprexa p.r.n. and trazodone. Assessment: Vital Signs/I&O: Vital Signs Date Time Temp Pulse Resp B/P (MAP) Pulse Ox O2 Delivery O2 Flow Rate FiO2 09/07/19 16:14 97.9 87 20 136/82 (100) 97 Room Air I & O 09/06/19 09/06/19 09/07/19 15:00 23:00 07:00 Intake Total 600 ml 120 ml Balance 600 ml 120 ml Current Medications: I have reviewed the current psychotropics carefully including drug interactions. Risk benefit ratio favors no change other than as noted in my dictated progress note. Diagnosis: Problems: (1) Major neurocognitive disorder due to Alzheimer's disease, with behavioral disturbance (2) Anxiety disorder (3) Dementia in Alzheimer's disease with delusions (4) Dementia in Alzheimer's disease with depression (5) Dementia, vascular, with delusions (6) Dementia, vascular, with depression (7) Impulse control disorder MICHELLE CALDERÓN MD Sep 07, 2019 22:57
[2019-09-08] MEDS: LEVOTHYROXINE 125 MCG TABLET PO SCH (05:23)
[2019-09-08 06:02] VITALS: BP 112/72
[2019-09-08] MEDS: POTASSIUM CHLORIDE 20 MEQ TABLET.ER. PO SCH ×2 (08:24→17:18)
[2019-09-08] MEDS: DIVALPROEX 125 MG CAP.SPRINK PO SCH ×2 (08:24→17:17)
[2019-09-08] MEDS: POLYETHYLENE GLYCOL 3350 17 GM PACKET. PO SCH (08:24)
[2019-09-08] MEDS: DONEPEZIL HCL 10 MG TABLET PO SCH (08:24)
[2019-09-08] MEDS: metroNIDAZOLE 0.75% TOPICAL 1 APP TUBE TP SCH (08:25)
[2019-09-08] MEDS: LISINOPRIL 20 MG TABLET PO SCH (08:25)
[2019-09-08] MEDS: MEMANTINE 10 MG TABLET. PO SCH ×2 (08:25→19:45)
[2019-09-08] MEDS: QUEtiapine 25 MG TABLET. PO SCH ×2 (08:25→17:18)
[2019-09-08 16:09] VITALS: BP 95/53
[2019-09-08] MEDS: MELATONIN 3 MG TABLET PO SCH (19:45)
[2019-09-08] MEDS: MIRTAZAPINE 7.5 MG TABLET. PO SCH (19:45)
--- NOTE | 2019-09-08 23:03 | PDOC ---
Exam Note: Steve Note: S/O: This note covers elements not covered in my initial note. The patient was seen on TeleHealth rounds in the evening coordinated by Kanika LOZOYA. Nursing report was with Kanika RN. Patient slept 8 hours previous night. She remains somewhat restless at times, pacing up and down the hallway but behaviorally much improved, less yelling. ROS: No CV, , Pulmonary, Eye, ENT system symptoms on review. MSE: Oriented to herself. Insight and judgment, recent and remote memory, attention and concentration, fund of knowledge is poor consistent with her diagnosis. Labs: Reviewed. Imp: Major neurocognitive disorder Alzheimer, vascular with delusion, depression, behavioral disturbance. Anxiety disorder unspecified. Impulse control disorder unspecified. Plan: Continue psychotropics mentioned in this note. Maintain Remeron, Depakote, Namenda, Aricept, melatonin, Zyprexa p.r.n. and trazodone. Adjust as clinically indicated. May need to increase the Seroquel. Valproic acid level therapeutic at 66. Continue Depakote at current dosage. Assessment: Vital Signs/I&O: Vital Signs Date Time Temp Pulse Resp B/P (MAP) Pulse Ox O2 Delivery O2 Flow Rate FiO2 09/08/19 16:09 97.8 92 20 95/53 (67) 96 Room Air I & O 09/07/19 09/07/19 09/08/19 14:59 22:59 06:59 Intake Total 600 ml 300 ml Balance 600 ml 300 ml Current Medications: I have reviewed the current psychotropics carefully including drug interactions. Risk benefit ratio favors no change other than as noted in my dictated progress note. 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
[2019-09-09] MEDS: LEVOTHYROXINE 125 MCG TABLET PO SCH (05:28)
[2019-09-09 06:26] VITALS: BP 106/69
[2019-09-09] MEDS: metroNIDAZOLE 0.75% TOPICAL 1 APP TUBE TP SCH (08:12)
[2019-09-09] MEDS: POLYETHYLENE GLYCOL 3350 17 GM PACKET. PO SCH (08:12)
[2019-09-09] MEDS: DIVALPROEX 125 MG CAP.SPRINK PO SCH ×2 (08:12→17:12)
[2019-09-09] MEDS: LISINOPRIL 20 MG TABLET PO SCH (08:13)
[2019-09-09] MEDS: QUEtiapine 25 MG TABLET. PO SCH ×2 (08:14→17:13)
[2019-09-09] MEDS: MEMANTINE 10 MG TABLET. PO SCH ×2 (08:14→20:08)
[2019-09-09] MEDS: DONEPEZIL HCL 10 MG TABLET PO SCH (08:15)
[2019-09-09] MEDS: POTASSIUM CHLORIDE 20 MEQ TABLET.ER. PO SCH ×2 (08:15→17:13)
[2019-09-09 15:36] VITALS: BP 120/75
[2019-09-09] MEDS: MIRTAZAPINE 7.5 MG TABLET. PO SCH (20:08)
[2019-09-09] MEDS: MELATONIN 3 MG TABLET PO SCH (20:09)
--- NOTE | 2019-09-09 22:04 | PDOC ---
Exam Note: Steve Note: Please also refer to the separate dictated note~for this date of service dictated separately. Discussed the patient with Nursing staff reviewed the chart.~Reviewed interim history and current functioning. Reviewed vital signs,~Labs/ Radiology~and current medications noted below. Continue current treatment with the changes noted in the dictated addendum note Assessment: Vital Signs/I&O: Vital Signs Date Time Temp Pulse Resp B/P (MAP) Pulse Ox O2 Delivery O2 Flow Rate FiO2 09/09/19 15:36 97.5 92 20 120/75 (90) 97 09/08/19 16:09 Room Air I & O 09/08/19 09/08/19 09/09/19 15:00 23:00 07:00 Intake Total 840 ml 760 ml Balance 840 ml 760 ml Current Medications: I have reviewed the current psychotropics carefully including drug interactions. Risk benefit ratio favors no change other than as noted in my dictated progress note. Diagnosis: Problems: (1) Major neurocognitive disorder due to Alzheimer's disease, with behavioral disturbance (2) Anxiety disorder (3) Dementia in Alzheimer's disease with delusions (4) Dementia in Alzheimer's disease with depression (5) Dementia, vascular, with delusions (6) Dementia, vascular, with depression (7) Impulse control disorder MICHELLE CALDERÓN MD Sep 09, 2019 22:04
[2019-09-10] MEDS: LEVOTHYROXINE 125 MCG TABLET PO SCH (06:00)
[2019-09-10 06:30] VITALS: BP 105/71
[2019-09-10] MEDS: POTASSIUM CHLORIDE 20 MEQ TABLET.ER. PO SCH ×2 (08:18→17:24)
[2019-09-10] MEDS: QUEtiapine 25 MG TABLET. PO SCH ×2 (08:18→17:24)
[2019-09-10] MEDS: POLYETHYLENE GLYCOL 3350 17 GM PACKET. PO SCH (08:18)
[2019-09-10] MEDS: DONEPEZIL HCL 10 MG TABLET PO SCH (08:18)
[2019-09-10] MEDS: DIVALPROEX 125 MG CAP.SPRINK PO SCH ×2 (08:18→17:24)
[2019-09-10] MEDS: MEMANTINE 10 MG TABLET. PO SCH ×2 (08:19→20:12)
[2019-09-10] MEDS: metroNIDAZOLE 0.75% TOPICAL 1 APP TUBE TP SCH (08:19)
[2019-09-10] MEDS: LISINOPRIL 20 MG TABLET PO SCH (08:19)
--- NOTE | 2019-09-10 10:47 | PDOC ---
Exam Note: Steve Note: S/O: This note is a late entry for DOS 09/09/2019 covers elements not covered in my initial note. The patient was seen on TeleHealth rounds coordinated by Willow LOZOYA in the evening. Discussed the patient with nursing staff, reviewed the chart. Nursing report was discussed with Jennifer LOZOYA in the morning. Milad amor slept 8 hours previous night. ROS: No CV, , Pulmonary, Eye, ENT system symptoms on review. MSE: Oriented to herself. Insight and judgment, recent and remote memory, attention and concentration, fund of knowledge is poor consistent with her troy gnosis. Labs: Reviewed. Imp: Major neurocognitive disorder Alzheimer, vascular with delusion, depression, behavioral disturbance. Anxiety disorder unspecified. Impulse control disorder unspecified. Plan: Continue psychotropics mentioned in this note. Also discussed with Varsha Rodriguez social service staff with possible transition to residential later this week. Assessment: Vital Signs/I&O: Vital Signs Date Time Temp Pulse Resp B/P (MAP) Pulse Ox O2 Delivery O2 Flow Rate FiO2 09/10/19 08:19 53 105/71 09/10/19 06:30 97.3 16 96 09/08/19 16:09 Room Air I & O 09/09/19 09/09/19 09/10/19 15:00 23:00 07:00 Intake Total 1020 ml 600 ml Balance 1020 ml 600 ml Current Medications: I have reviewed the current psychotropics carefully including drug interactions. Risk benefit ratio favors no change other than as noted in my dictated progress note. 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
[2019-09-10 15:41] VITALS: BP 110/70
[2019-09-10] MEDS: MELATONIN 3 MG TABLET PO SCH (20:12)
[2019-09-10] MEDS: MIRTAZAPINE 7.5 MG TABLET. PO SCH (20:12)
--- NOTE | 2019-09-10 21:59 | PDOC ---
Exam Note: Steve Note: Please also refer to the separate dictated note~for this date of service dictated separately.~Patient seen individually. Discussed the patient with Nursing staff reviewed the chart.~Reviewed interim history and current functioning. Reviewed vital signs,~Labs/ Radiology~and current medications noted below. Continue current treatment with the changes noted in the dictated addendum note Assessment: Vital Signs/I&O: Vital Signs Date Time Temp Pulse Resp B/P (MAP) Pulse Ox O2 Delivery O2 Flow Rate FiO2 09/10/19 15:41 97.3 73 16 110/70 (83) 97 09/08/19 16:09 Room Air I & O 09/09/19 09/09/19 09/10/19 15:00 23:00 07:00 Intake Total 1020 ml 600 ml Balance 1020 ml 600 ml Current Medications: I have reviewed the current psychotropics carefully including drug interactions. Risk benefit ratio favors no change other than as noted in my dictated progress note. 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
[2019-09-11] MEDS: LEVOTHYROXINE 125 MCG TABLET PO SCH (04:59)
[2019-09-11 06:01] VITALS: BP 101/65
[2019-09-11] MEDS: DIVALPROEX 125 MG CAP.SPRINK PO SCH ×2 (08:07→17:09)
[2019-09-11] MEDS: QUEtiapine 25 MG TABLET. PO SCH ×2 (08:08→17:08)
[2019-09-11] MEDS: MEMANTINE 10 MG TABLET. PO SCH ×2 (08:11→19:40)
[2019-09-11] MEDS: metroNIDAZOLE 0.75% TOPICAL 1 APP TUBE TP SCH (08:12)
[2019-09-11] MEDS: POLYETHYLENE GLYCOL 3350 17 GM PACKET. PO SCH (08:12)
[2019-09-11] MEDS: DONEPEZIL HCL 10 MG TABLET PO SCH (08:12)
[2019-09-11] MEDS: POTASSIUM CHLORIDE 20 MEQ TABLET.ER. PO SCH ×2 (08:12→17:08)
[2019-09-11] MEDS: LISINOPRIL 20 MG TABLET PO SCH (08:12)
[2019-09-11 09:25] LABS: BASO % 1 % (0-3); EOS # 0.1 x10^3/uL (0.0-0.7); EOS % 1 % (0-3); HEMATOCRIT 39.2 % (36.0-47.0); HEMOGLOBIN 13.3 g/dL (12.0-15.5); LYMPH # 0.6 x10^3/uL (1.0-4.8); LYMPH % 8 % (24-48); MEAN CORPUSCULAR HEMOGLOBIN 31 pg (25-35); MEAN CORPUSCULAR HGB CONC 34 g/dL (31-37); MEAN CORPUSCULAR VOLUME 90 fL (79-100); MONO # 0.6 x10^3/uL (0.0-1.1); MONO % 8 % (0-9); NEUT # 6.5 x10^3uL (1.8-7.7); NEUT % 83 % (31-73); PLATELET COUNT 155 x10^3/uL (140-400); RED BLOOD COUNT 4.34 x10^6/uL (3.50-5.40); RED CELL DISTRIBUTION WIDTH 13.4 % (11.5-14.5); WHITE BLOOD COUNT 7.8 x10^3/uL (4.0-11.0)
[2019-09-11 09:43] LABS: ALBUMIN 3.3 g/dL (3.4-5.0); ALBUMIN/GLOBULIN RATIO 0.9 (1.0-1.7); CALCIUM 9.1 mg/dL (8.5-10.1); CREATININE 0.8 mg/dL (0.6-1.0); GFR 74.7; POTASSIUM 4.5 mmol/L (3.5-5.1); TOTAL BILIRUBIN 0.2 mg/dL (0.2-1.0); TOTAL PROTEIN 6.9 g/dL (6.4-8.2)
--- NOTE | 2019-09-11 10:46 | TX PLAN ---
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 Change Sleep, Anxiety/Panic, Combative, Confusion/Disoriented, Poor impulse control Problem in Patient's Words: Nicolasa is unable to express herself in a sensical manner related to advanced dementia. Per Nicolasa's care facility, [facility], Nicolasa's behavior is a danger to herslef and others. They are unable to manage her behaviors at present time. Additional Admission Comments: Per intake record, Nicolasa has been combative towards staff/physician/spouse, increasngly agitated, screaming out, throwing household items, broke a vase and chair, insomnia, and uncontrollably eating. Problems Active Problems: Pacing the unit Restless Agitated Beating fists on table, nursning station windows Bit nursning staff Inactive Problems: Medication compliant Pt Strengths/Limitations Ability for Dane: Poor Cognitive Functioning/Ability: Poor Communication Skills/Ability: Poor Financial Resources: Fair Insight/Judgement: Poor Intellectual Ability: Poor Physical Health: Fair Social Skills: Poor Stability in Family: Good Verbal Skills: Poor Discharge Criteria Discharge Criteria: Adequate arrangements @DC, Improved behavior, Improved mood/thought Preliminary Discharge Plan Preliminary DC Plan: Memory Care Special Precautions Special Precautions: Agitation/Assault Fall Risk: High Initial D/C Plan [facility] Identified Discharge Needs: Follow up with PCP and out patient psychaitry if available. Currently Utilized Resources Currently Utilized Resources/P: [facility] provides 24 hour care. PCP access Dr. Morales, neurologist, follows. Referrals Community Resources: Out patient psychiatry if available Identified Problems/Hx/Goals Objectives/Short-Term Goals Short Term Goals: Control abnormal behavior, Dec. Aggression, Dec. Outbursts, Medication Stabilization, Monitor Med Effects Short Term Goals in Patient's: Per POA, "Hoping she gets some peace." Interventions/Frequency Staff Interventions/Frequency&: Nursing provides routine safety checks, adl support, medication administration, and assessments. Psychiatry 3-5 times weekly. SW visits twice weekly. 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 Education: Nicolasa graduated high school and obtained a bachelors degree in health science from [place], [place]. Community Follow-up PCP Neurology with Dr. Morales Out patient psychiatry if available Community Provider/Family Inpu: Time, spouse/POA, participated in treatment team call on this date. [facility] has approved Nicolasa thru 08/27/19, review is due at that time. Treatment Plan Explained Patient/Locksmith Helper had this treatment plan explained to him/her as indicated by the signature below and has been given the opportunity to ask questions and make suggestions: Date: Patient/Locksmith Helper Signature: Status Update Update WEEKLY NOTE/UPDATE: Mandi is averaging 75% of meal intakes and seven hours of sleep at night. Mandi has been provided finger foods at meal times and is assisted with her beverages as needed. She has had less yelling out and less clapping. Mandi continues to wander about the unit, is confused, and disorganized. Mandi has b een declined readmission to [facility]. [facility] has approved Mandi coverage thru 09/17/19, next review is due at that time. Referral was faxed to [facility] for review on 09/10/19, awaiting admit decision. will update Eric, spouse/POA, regularly. NICHOL EMERY Sep 11, 2019 10:46
--- NOTE | 2019-09-11 11:10 | PDOC ---
Exam Note: Steve Note: S/O: This note is a late entry for DOS 09/10/2019 covers elements not covered in my initial note. We have had exposure of COVID-19 on the unit consequent to a staff member. The unit was on lockdown per [facility] ([facility])/Centers for Disease Control (CDC). Three patients had dev eloped fever and other symptoms for which they were screened for the COVID-19, two of which have come back negative, result for one is awaited and one other patient today is running a fever and we are doing a COVID-19 screen for this patient. Per regulations from the CDC/[facility], we are unable to admit or discharge any patients, still all of this is negative and the length of stay has affected not entirely by the clinical situation but by this directive additionally from the [facility]/CDC. The patient was seen on TeleHealth rounds coordinated by Jennifer LOZOYA in the evening. Discussed the patient with nursing staff, reviewed the chart. Nursing report was discussed with Madeline LOZOYA in the morning. Patient has been less agitated, less clapping. She constantly tells nursing staff I love you. She is unable to recognize the name of her Eric when this was brought up with her. ROS: No CV, , Pulmonary, Eye, ENT system symptoms on review. Reliability poor. MSE: Oriented to herself. Insight and judgment, recent and remote memory, attention and concentration, fund of knowledge is poor consistent with her diagnosis. As I was interacting with the patient on the audio-visual she was walking right away oblivious of any interaction even with nursing staff who were there right next to her. Labs: Reviewed. Imp: Major neurocognitive disorder Alzheimer, vascular with delusion, depressio n, behavioral disturbance. Anxiety disorder unspecified. Impulse control disorder unspecified. Plan: No change from initial note. Assessment: Vital Signs/I&O: Vital Signs Date Time Temp Pulse Resp B/P (MAP) Pulse Ox O2 Delivery O2 Flow Rate FiO2 09/11/19 08:12 59 101/65 09/11/19 06:01 97.5 16 100 09/08/19 16:09 Room Air I & O 09/10/19 09/10/19 09/11/19 15:00 23:00 07:00 Intake Total 1080 ml 840 ml Balance 1080 ml 840 ml Labs: Laboratory Tests Test 09/11/19 09:18 White Blood Count 7.8 x10^3/uL (4.0-11.0) Red Blood Count 4.34 x10^6/uL (3.50-5.40) Hemoglobin 13.3 g/dL (12.0-15.5) Hematocrit 39.2 % (36.0-47.0) Mean Corpuscular Volume 90 fL (79-100) Mean Corpuscular Hemoglobin 31 pg (25-35) Mean Corpuscular Hemoglobin Concent 34 g/dL (31-37) Red Cell Distribution Width 13.4 % (11.5-14.5) Platelet Count 155 x10^3/uL (140-400) Neutrophils (%) (Auto) 83 % (31-73) H Lymphocytes (%) (Auto) 8 % (24-48) L Monocytes (%) (Auto) 8 % (0-9) Eosinophils (%) (Auto) 1 % (0-3) Basophils (%) (Auto) 1 % (0-3) Neutrophils # (Auto) 6.5 x10^3uL (1.8-7.7) Lymphocytes # (Auto) 0.6 x10^3/uL (1.0-4.8) L Monocytes # (Auto) 0.6 x10^3/uL (0.0-1.1) Eosinophils # (Auto) 0.1 x10^3/uL (0.0-0.7) Basophils # (Auto) 0.0 x10^3/uL (0.0-0.2) Sodium Level 141 mmol/L (136-145) Potassium Level 4.5 mmol/L (3.5-5.1) Chloride Level 105 mmol/L (98-107) Carbon Dioxide Level 32 mmol/L (21-32) Anion Gap 4 (6-14) L Blood Urea Nitrogen 24 mg/dL (7-20) H Creatinine 0.8 mg/dL (0.6-1.0) Estimated GFR (Cockcroft-Gault) 74.7 BUN/Creatinine Ratio 30 (6-20) H Glucose Level 72 mg/dL (70-99) Calcium Level 9.1 mg/dL (8.5-10.1) Total Bilirubin 0.2 mg/dL (0.2-1.0) Aspartate Amino Transferase (AST) 15 U/L (15-37) Alanine Aminotransferase (ALT) 22 U/L (14-59) Alkaline Phosphatase 131 U/L (46-116) H Total Protein 6.9 g/dL (6.4-8.2) Albumin 3.3 g/dL (3.4-5.0) L Albumin/Globulin Ratio 0.9 (1.0-1.7) L Current Medications: I have reviewed the current psychotropics carefully including drug interactions. Risk benefit ratio favors no change other than as noted in my dictated progress note. 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
[2019-09-11 16:06] VITALS: BP 151/77
[2019-09-11] MEDS: MELATONIN 3 MG TABLET PO SCH (19:40)
[2019-09-11] MEDS: MIRTAZAPINE 7.5 MG TABLET. PO SCH (19:40)
[2019-09-11] MEDS: ACETAMINOPHEN 325 MG TABLET PO PRN (19:42)
--- NOTE | 2019-09-11 22:04 | PDOC ---
Exam Note: Steve Note: Please also refer to the separate dictated note~for this date of service dictated separately.~Patient seen individually. Discussed the patient with Nursing staff reviewed the chart.~Reviewed interim history and current functioning. Reviewed vital signs,~Labs/ Radiology~and current medications noted below. Continue current treatment with the changes noted in the dictated addendum note Assessment: Vital Signs/I&O: Vital Signs Date Time Temp Pulse Resp B/P (MAP) Pulse Ox O2 Delivery O2 Flow Rate FiO2 09/11/19 18:30 97.6 09/11/19 16:06 85 18 151/77 (101) 97 09/08/19 16:09 Room Air I & O 09/10/19 09/10/19 09/11/19 15:00 23:00 07:00 Intake Total 1080 ml 840 ml Balance 1080 ml 840 ml Labs: Laboratory Tests Test 09/11/19 09:18 White Blood Count 7.8 x10^3/uL (4.0-11.0) Red Blood Count 4.34 x10^6/uL (3.50-5.40) Hemoglobin 13.3 g/dL (12.0-15.5) Hematocrit 39.2 % (36.0-47.0) Mean Corpuscular Volume 90 fL (79-100) Mean Corpuscular Hemoglobin 31 pg (25-35) Mean Corpuscular Hemoglobin Concent 34 g/dL (31-37) Red Cell Distribution Width 13.4 % (11.5-14.5) Platelet Count 155 x10^3/uL (140-400) Neutrophils (%) (Auto) 83 % (31-73) H Lymphocytes (%) (Auto) 8 % (24-48) L Monocytes (%) (Auto) 8 % (0-9) Eosinophils (%) (Auto) 1 % (0-3) Basophils (%) (Auto) 1 % (0-3) Neutrophils # (Auto) 6.5 x10^3uL (1.8-7.7) Lymphocytes # (Auto) 0.6 x10^3/uL (1.0-4.8) L Monocytes # (Auto) 0.6 x10^3/uL (0.0-1.1) Eosinophils # (Auto) 0.1 x10^3/uL (0.0-0.7) Basophils # (Auto) 0.0 x10^3/uL (0.0-0.2) Sodium Level 141 mmol/L (136-145) Potassium Level 4.5 mmol/L (3.5-5.1) Chloride Level 105 mmol/L (98-107) Carbon Dioxide Level 32 mmol/L (21-32) Anion Gap 4 (6-14) L Blood Urea Nitrogen 24 mg/dL (7-20) H Creatinine 0.8 mg/dL (0.6-1.0) Estimated GFR (Cockcroft-Gault) 74.7 BUN/Creatinine Ratio 30 (6-20) H Glucose Level 72 mg/dL (70-99) Calcium Level 9.1 mg/dL (8.5-10.1) Total Bilirubin 0.2 mg/dL (0.2-1.0) Aspartate Amino Transferase (AST) 15 U/L (15-37) Alanine Aminotransferase (ALT) 22 U/L (14-59) Alkaline Phosphatase 131 U/L (46-116) H Total Protein 6.9 g/dL (6.4-8.2) Albumin 3.3 g/dL (3.4-5.0) L Albumin/Globulin Ratio 0.9 (1.0-1.7) L Current Medications: I have reviewed the current psychotropics carefully including drug interactions. Risk benefit ratio favors no change other than as noted in my dictated progress note. Diagnosis: Problems: (1) Major neurocognitive disorder due to Alzheimer's disease, with behavioral di sturbance (2) Anxiety disorder (3) Dementia in Alzheimer's disease with delusions (4) Dementia in Alzheimer's disease with depression (5) Dementia, vascular, with delusions (6) Dementia, vascular, with depression (7) Impulse control disorder MICHELLE CALDERÓN MD Sep 11, 2019 22:04
[2019-09-12] MEDS: LEVOTHYROXINE 125 MCG TABLET PO SCH (05:14)
[2019-09-12 06:16] VITALS: BP 106/75
[2019-09-12] MEDS: POTASSIUM CHLORIDE 20 MEQ TABLET.ER. PO SCH ×2 (08:21→17:34)
[2019-09-12] MEDS: MEMANTINE 10 MG TABLET. PO SCH ×2 (08:21→19:47)
[2019-09-12] MEDS: DONEPEZIL HCL 10 MG TABLET PO SCH (08:21)
[2019-09-12] MEDS: LISINOPRIL 20 MG TABLET PO SCH (08:22)
[2019-09-12] MEDS: QUEtiapine 25 MG TABLET. PO SCH ×2 (08:22→17:34)
[2019-09-12] MEDS: DIVALPROEX 125 MG CAP.SPRINK PO SCH ×2 (08:23→17:34)
[2019-09-12] MEDS: POLYETHYLENE GLYCOL 3350 17 GM PACKET. PO SCH (08:23)
[2019-09-12] MEDS: metroNIDAZOLE 0.75% TOPICAL 1 APP TUBE TP SCH (08:24)
--- NOTE | 2019-09-12 13:05 | PDOC ---
Exam Note: Steve Note: S/O: This note is a late entry for DOS 09/11/2019 covers elements not covered in my initial note. We are still waiting on the COVID-19 screen on two patients before the unit can be opened for admissions and discharges per the [facility] ([facility])/Centers for Disease Control (CDC). Discussed the patient with nursing staff, reviewed the chart. Treatment team meeting was done in the morning with social service staff Karuna in Activity [facility], Jennifer LOZOYA, nursing staff and myself. The patient was seen on audio- visual rounds in the evening with Willow LOZOYA. We reviewed the patients progress, discharge plans for transition back to custodial after the COVID-19 restrictions are limited. Her Eric calls him daily to get an update on her but she is unable to recognize him on the phone. Appetite is 35%. Sleeping average is 7 hours, oriented just to herself, less clapping and agitation, wanders the hallways. ROS: No CV, , Pulmonary, Eye, ENT system symptoms on review. MSE: Oriented to herself. Insight and judgment, recent and remote memory, attention and concentration, fund of knowledge is poor consistent with her diagnosis. Labs: Reviewed. Imp: Major neurocognitive disorder Alzheimer, vascular with delusion, depression, behavioral disturbance. Anxiety disorder unspecified. Impulse control disorder unspecified. Plan: No change from initial note. May need to increase Seroquel if agitation resurfaces but for now she is doing better. Assessment: Vital Signs/I&O: Vital Signs Date Time Temp Pulse Resp B/P (MAP) Pulse Ox O2 Delivery O2 Flow Rate FiO2 09/12/19 08:22 53 106/75 09/12/19 06:16 97.2 16 100 09/08/19 16:09 Room Air I & O 09/11/19 09/11/19 09/12/19 15:00 23:00 07:00 Intake Total 480 ml 600 ml Balance 480 ml 600 ml Current Medications: I have reviewed the current psychotropics carefully including drug interactions. Risk benefit ratio favors no change other than as noted in my dictated progress note. Diagnosis: Problems: (1) Major neurocognitive disorder due to Alzheimer's disease, with behavioral disturbance (2) Anxiety disorder (3) Dementia in Alzheimer's disease with delusions (4) Dementia in Alzheimer's disease with depression (5) Dementia, vascular, with delusions (6) Dementia, vascular, with depression (7) Impulse control disorder MICHELLE CALDERÓN MD Sep 12, 2019 13:05
[2019-09-12 16:28] VITALS: BP 120/85
[2019-09-12] MEDS ORDERED: HYDROCORTISONE 1% TOPICAL OINTMENT 30GM TUBE. TP PRN (16:30)
[2019-09-12] MEDS: MIRTAZAPINE 7.5 MG TABLET. PO SCH (19:47)
[2019-09-12] MEDS: MELATONIN 3 MG TABLET PO SCH (19:47)
--- NOTE | 2019-09-12 22:06 | PDOC ---
Exam Note: Steve Note: Please also refer to the separate dictated note~for this date of service dictated separately.~Patient seen individually. Discussed the patient with Nursing staff reviewed the chart.~Reviewed interim history and current functioning. Reviewed vital signs,~Labs/ Radiology~and current medications noted below. Continue current treatment with the changes noted in the dictated addendum note Assessment: Vital Signs/I&O: Vital Signs Date Time Temp Pulse Resp B/P (MAP) Pulse Ox O2 Delivery O2 Flow Rate FiO2 09/12/19 16:28 97.3 93 20 120/85 (97) 98 09/08/19 16:09 Room Air I & O 09/11/19 09/11/19 09/12/19 15:00 23:00 07:00 Intake Total 480 ml 600 ml Balance 480 ml 600 ml Current Medications: I have reviewed the current psychotropics carefully including drug interactions. Risk benefit ratio favors no change other than as noted in my dictated progress note. Diagnosis: Problems: (1) Major neurocognitive disorder due to Alzheimer's disease, with behavioral disturbance (2) Anxiety disorder (3) Dementia in Alzheimer's disease with delusions (4) Dementia in Alzheimer's disease with depression (5) Dementia, vascular, with delusions (6) Dementia, vascular, with depression (7) Impulse control disorder MICHELLE CALDERÓN MD Sep 12, 2019 22:06
[2019-09-13] MEDS: LEVOTHYROXINE 125 MCG TABLET PO SCH (05:04)
[2019-09-13 05:55] VITALS: BP 121/86
[2019-09-13] MEDS: POTASSIUM CHLORIDE 20 MEQ TABLET.ER. PO SCH ×2 (08:26→17:47)
[2019-09-13] MEDS: POLYETHYLENE GLYCOL 3350 17 GM PACKET. PO SCH (08:26)
[2019-09-13] MEDS: LISINOPRIL 20 MG TABLET PO SCH (08:29)
[2019-09-13] MEDS: DONEPEZIL HCL 10 MG TABLET PO SCH (08:29)
[2019-09-13] MEDS: DIVALPROEX 125 MG CAP.SPRINK PO SCH ×2 (08:29→17:47)
[2019-09-13] MEDS: QUEtiapine 25 MG TABLET. PO SCH ×2 (08:29→17:47)
[2019-09-13] MEDS: MEMANTINE 10 MG TABLET. PO SCH ×2 (08:29→19:55)
[2019-09-13] MEDS: metroNIDAZOLE 0.75% TOPICAL 1 APP TUBE TP SCH (08:30)
[2019-09-13 16:14] VITALS: BP 109/70
[2019-09-13] MEDS: MELATONIN 3 MG TABLET PO SCH (19:55)
[2019-09-13] MEDS: MIRTAZAPINE 7.5 MG TABLET. PO SCH (19:55)
--- NOTE | 2019-09-13 21:53 | PDOC ---
Exam Note: Steve Note: S/O: This note is a late entry for DOS 09/12/2019 covers elements not covered in my initial note. Discussed the patient with nursing staff, reviewed the chart. The patient was seen on audio-visual rounds in the evening with Samy LOZOYA. Sleep and appetite fair. ROS: No CV, , Pulmonary, Eye, ENT system symptoms on review. MSE: Oriented to herself. Insight and judgment, recent and remote memory, attention and concentration, fund of knowledge is poor consistent with her diagnosis. Labs: Reviewed. Imp: Major neurocognitive disorder Alzheimer, vascular with delusion, depression, behavioral disturbance. Anxiety disorder unspecified. Impulse control disorder unspecified. Plan: No change from initial note. Assessment: Vital Signs/I&O: Vital Signs Date Time Temp Pulse Resp B/P (MAP) Pulse Ox O2 Delivery O2 Flow Rate FiO2 09/13/19 16:14 97.7 76 20 109/70 (83) 96 09/08/19 16:09 Room Air I & O 09/12/19 09/12/19 09/13/19 14:59 22:59 06:59 Intake Total 600 ml 360 ml Balance 600 ml 360 ml Current Medications: I have reviewed the current psychotropics carefully including drug interactions. Risk benefit ratio favors no change other than as noted in my dictated progress note. Diagnosis: Problems: (1) Major neurocognitive disorder due to Alzheimer's disease, with behavioral disturbance (2) Anxiety disorder (3) Dementia in Alzheimer's disease with delusions (4) Dementia in Alzheimer's disease with depression (5) Dementia, vascular, with delusions (6) Dementia, vascular, with depression (7) Impulse control disorder MICHELLE CALDERÓN MD Sep 13, 2019 21:53
--- NOTE | 2019-09-13 22:03 | PDOC ---
Exam Note: Steve Note: Please also refer to the separate dictated note~for this date of service dictated separately.~Patient seen individually. Discussed the patient with Nursing staff reviewed the chart.~Reviewed interim history and current functioning. Reviewed vital signs,~Labs/ Radiology~and current medications noted below. Continue current treatment with the changes noted in the dictated addendum note Assessment: Vital Signs/I&O: Vital Signs Date Time Temp Pulse Resp B/P (MAP) Pulse Ox O2 Delivery O2 Flow Rate FiO2 09/13/19 16:14 97.7 76 20 109/70 (83) 96 09/08/19 16:09 Room Air I & O 09/12/19 09/12/19 09/13/19 15:00 23:00 07:00 Intake Total 600 ml 360 ml Balance 600 ml 360 ml Current Medications: I have reviewed the current psychotropics carefully including drug interactions. Risk benefit ratio favors no change other than as noted in my dictated progress note. Diagnosis: Problems: (1) Major neurocognitive disorder due to Alzheimer's disease, with behavioral disturbance (2) Anxiety disorder (3) Dementia in Alzheimer's disease with delusions (4) Dementia in Alzheimer's disease with depression (5) Dementia, vascular, with delusions (6) Dementia, vascular, with depression (7) Impulse control disorder MICHELLE CALDERÓN MD Sep 13, 2019 22:03
[2019-09-13] MEDS: traZODone 50 MG TABLET. PO PRN (22:41)
[2019-09-14] MEDS: LEVOTHYROXINE 125 MCG TABLET PO SCH (05:16)
[2019-09-14 06:10] VITALS: BP 117/76
[2019-09-14] MEDS: DIVALPROEX 125 MG CAP.SPRINK PO SCH ×2 (08:18→17:20)
[2019-09-14] MEDS: POTASSIUM CHLORIDE 20 MEQ TABLET.ER. PO SCH ×2 (08:18→17:20)
[2019-09-14] MEDS: DONEPEZIL HCL 10 MG TABLET PO SCH (08:18)
[2019-09-14] MEDS: LISINOPRIL 20 MG TABLET PO SCH (08:18)
[2019-09-14] MEDS: MEMANTINE 10 MG TABLET. PO SCH ×2 (08:18→20:02)
[2019-09-14] MEDS: metroNIDAZOLE 0.75% TOPICAL 1 APP TUBE TP SCH (08:19)
[2019-09-14] MEDS: QUEtiapine 25 MG TABLET. PO SCH ×2 (08:19→17:20)
[2019-09-14] MEDS: POLYETHYLENE GLYCOL 3350 17 GM PACKET. PO SCH (08:19)
[2019-09-14 16:04] VITALS: BP 124/81
[2019-09-14] MEDS: MELATONIN 3 MG TABLET PO SCH (20:02)
[2019-09-14] MEDS: MIRTAZAPINE 7.5 MG TABLET. PO SCH (20:02)
[2019-09-14] MEDS: traZODone 50 MG TABLET. PO PRN (20:02)
[2019-09-15] MEDS: LEVOTHYROXINE 125 MCG TABLET PO SCH (05:13)
[2019-09-15 06:23] VITALS: BP 148/93
[2019-09-15] MEDS: metroNIDAZOLE 0.75% TOPICAL 1 APP TUBE TP SCH (08:20)
[2019-09-15] MEDS: DONEPEZIL HCL 10 MG TABLET PO SCH (08:20)
[2019-09-15] MEDS: MEMANTINE 10 MG TABLET. PO SCH ×2 (08:21→20:27)
[2019-09-15] MEDS: POTASSIUM CHLORIDE 20 MEQ TABLET.ER. PO SCH ×2 (08:21→17:02)
[2019-09-15] MEDS: LISINOPRIL 20 MG TABLET PO SCH (08:21)
[2019-09-15] MEDS: POLYETHYLENE GLYCOL 3350 17 GM PACKET. PO SCH (08:21)
[2019-09-15] MEDS: QUEtiapine 25 MG TABLET. PO SCH ×2 (08:21→17:02)
[2019-09-15] MEDS: DIVALPROEX 125 MG CAP.SPRINK PO SCH ×2 (08:21→17:02)
--- NOTE | 2019-09-15 08:41 | PDOC ---
Exam Note: Steve Note: S/O: This note is a late entry for DOS 09/13/2019 covers elements not covered in my initial note. Discussed the patient with nursing staff, reviewed the chart. The patient was seen on audio-visual rounds in the evening with Samy RN. Nursing report was with Samy RN. Patient has been restless, more-so in t he morning screaming at times, hallucinating, looking at the ceiling. Received Zyprexa p.r.n. and then did better. The restlessness lasted till about lunch time. UA on 09/03/2019 was negative. At one point during the day she was so agitated with the hallucination, she tripped over furniture and an oxygen tank running down the hallway. ROS: Ambulation impaired. No CV, , Pulmonary, Eye, ENT system symptoms on review. MSE: Oriented to herself. Insight and judgment, recent and remote memory, attention and concentration, fund of knowledge is poor consistent with her diagnosis. Labs: Reviewed. Imp: Major neurocognitive disorder Alzheimer, vascular with delusion, depression, behavioral disturbance. Anxiety disorder unspecified. Impulse control disorder unspecified. Plan: We will continue psychotropics from initial note. Monitor her for another 24 hours. If this persists, we may have to increase her Seroquel. Assessment: Vital Signs/I&O: Vital Signs Date Time Temp Pulse Resp B/P (MAP) Pulse Ox O2 Delivery O2 Flow Rate FiO2 09/15/19 08:21 101 148/93 09/15/19 06:23 97.4 20 98 I & O 09/14/19 09/14/19 09/15/19 15:00 23:00 07:00 Intake Total 480 ml 240 ml 60 ml Balance 480 ml 240 ml 60 ml Current Medications: I have reviewed the current psychotropics carefully including drug interactions. Risk benefit ratio favors no change other than as noted in my dictated progress note. Diagnosis: Problems: (1) Major neurocognitive disorder due to Alzheimer's disease, with behavioral disturbance (2) Anxiety disorder (3) Dementia in Alzheimer's disease with delusions (4) Dementia in Alzheimer's disease with depression (5) Dementia, vascular, with delusions (6) Dementia, vascular, with depression (7) Impulse control disorder MICHELLE CALDERÓN MD Sep 15, 2019 08:41
--- NOTE | 2019-09-15 09:10 | PDOC ---
Exam Note: Steve Note: S/O: This note is a late entry for DOS 09/14/2019 covers elements not covered in my initial note. Discussed the patient with nursing staff, reviewed the chart. The patient was seen on audio-visual rounds in the evening with Lisa LOZOYA. Nursing report was with Lucio LOZOYA. She was restless previous evening. Received trazodone and Zyprexa at night and did better. ROS: Ambulation impaired at times. No CV, , Pulmonary, Eye system symptoms on review. MSE: Oriented to herself. Insight and judgment, recent and remote memory, attention and concentration, fund of knowledge is poor consistent with her diagnosis. Labs: Reviewed. Imp: Major neurocognitive disorder Alzheimer, vascular with delusion, depression, behavioral disturbance. Anxiety disorder unspecified. Impulse control disorder unspecified. Plan: Continue psychotropics from initial note. Assessment: Vital Signs/I&O: Vital Signs Date Time Temp Pulse Resp B/P (MAP) Pulse Ox O2 Delivery O2 Flow Rate FiO2 09/15/19 08:21 101 148/93 09/15/19 06:23 97.4 20 98 I & O 09/14/19 09/14/19 09/15/19 15:00 23:00 07:00 Intake Total 480 ml 240 ml 60 ml Balance 480 ml 240 ml 60 ml Current Medications: I have reviewed the current psychotropics carefully including drug interactions. Risk benefit ratio favors no change other than as noted in my dictated progress note. Diagnosis: Problems: (1) Major neurocognitive disorder due to Alzheimer's disease, with behavioral disturbance (2) Anxiety disorder (3) Dementia in Alzheimer's disease with delusions (4) Dementia in Alzheimer's disease with depression (5) Dementia, vascular, with delusions (6) Dementia, vascular, with depression (7) Impulse control disorder MICHELLE CALDERÓN MD Sep 15, 2019 09:10
[2019-09-15 15:44] VITALS: BP 136/73
[2019-09-15] MEDS: MIRTAZAPINE 7.5 MG TABLET. PO SCH (20:27)
[2019-09-15] MEDS: traZODone 50 MG TABLET. PO PRN (20:27)
[2019-09-15] MEDS: MELATONIN 3 MG TABLET PO SCH (20:27)
--- NOTE | 2019-09-15 22:16 | PDOC ---
Exam Note: Steve Note: Please also refer to the separate dictated note~for this date of service dictated separately.~Patient seen individually. Discussed the patient with Nursing staff reviewed the chart.~Reviewed interim history and current functioning. Reviewed vital signs,~Labs/ Radiology~and current medications noted below. Continue current treatment with the changes noted in the dictated addendum note Assessment: Vital Signs/I&O: Vital Signs Date Time Temp Pulse Resp B/P (MAP) Pulse Ox O2 Delivery O2 Flow Rate FiO2 09/15/19 15:44 98.2 80 20 136/73 (94) 96 Room Air I & O 09/14/19 09/14/19 09/15/19 15:00 23:00 07:00 Intake Total 480 ml 240 ml 60 ml Balance 480 ml 240 ml 60 ml Current Medications: I have reviewed the current psychotropics carefully including drug interactions. Risk benefit ratio favors no change other than as noted in my dictated progress note. Diagnosis: Problems: (1) Major neurocognitive disorder due to Alzheimer's disease, with behavioral disturbance (2) Anxiety disorder (3) Dementia in Alzheimer's disease with delusions (4) Dementia in Alzheimer's disease with depression (5) Dementia, vascular, with delusions (6) Dementia, vascular, with depression (7) Impulse control disorder MICHELLE CALDERÓN MD Sep 15, 2019 22:16
[2019-09-16] MEDS: LEVOTHYROXINE 125 MCG TABLET PO SCH (06:00)
[2019-09-16 06:22] VITALS: BP 121/69
[2019-09-16 06:25] LABS: BASO % 0 % (0-3); EOS # 0.1 x10^3/uL (0.0-0.7); EOS % 1 % (0-3); HEMATOCRIT 39.8 % (36.0-47.0); HEMOGLOBIN 12.9 g/dL (12.0-15.5); LYMPH # 1.1 x10^3/uL (1.0-4.8); LYMPH % 15 % (24-48); MEAN CORPUSCULAR HEMOGLOBIN 30 pg (25-35); MEAN CORPUSCULAR HGB CONC 32 g/dL (31-37); MEAN CORPUSCULAR VOLUME 93 fL (79-100); MONO # 0.7 x10^3/uL (0.0-1.1); MONO % 10 % (0-9); NEUT # 5.3 x10^3uL (1.8-7.7); NEUT % 73 % (31-73); PLATELET COUNT 145 x10^3/uL (140-400); RED BLOOD COUNT 4.28 x10^6/uL (3.50-5.40); RED CELL DISTRIBUTION WIDTH 14.3 % (11.5-14.5); WHITE BLOOD COUNT 7.3 x10^3/uL (4.0-11.0)
[2019-09-16 06:41] LABS: ALBUMIN 3.3 g/dL (3.4-5.0); ALBUMIN/GLOBULIN RATIO 0.9 (1.0-1.7); CALCIUM 8.9 mg/dL (8.5-10.1); CREATININE 0.8 mg/dL (0.6-1.0); GFR 74.7; POTASSIUM 3.9 mmol/L (3.5-5.1); TOTAL BILIRUBIN 0.4 mg/dL (0.2-1.0); TOTAL PROTEIN 6.9 g/dL (6.4-8.2)
[2019-09-16] MEDS: QUEtiapine 25 MG TABLET. PO SCH ×2 (08:23→16:48)
[2019-09-16] MEDS: POTASSIUM CHLORIDE 20 MEQ TABLET.ER. PO SCH ×2 (08:24→16:48)
[2019-09-16] MEDS: DONEPEZIL HCL 10 MG TABLET PO SCH (08:24)
[2019-09-16] MEDS: LISINOPRIL 20 MG TABLET PO SCH (08:24)
[2019-09-16] MEDS: MEMANTINE 10 MG TABLET. PO SCH ×2 (08:24→19:46)
[2019-09-16] MEDS: DIVALPROEX 125 MG CAP.SPRINK PO SCH ×2 (08:25→16:49)
[2019-09-16] MEDS: POLYETHYLENE GLYCOL 3350 17 GM PACKET. PO SCH (08:25)
[2019-09-16] MEDS: metroNIDAZOLE 0.75% TOPICAL 1 APP TUBE TP SCH (08:25)
[2019-09-16 15:46] VITALS: BP 129/83
[2019-09-16] MEDS ORDERED: metroNIDAZOLE 0.75% TOPICAL 1 APP TUBE TP PRN (18:00)
[2019-09-16] MEDS: MIRTAZAPINE 7.5 MG TABLET. PO SCH (19:46)
[2019-09-16] MEDS: MELATONIN 3 MG TABLET PO SCH (19:46)
--- NOTE | 2019-09-16 21:50 | PDOC ---
Exam Note: Steve Note: Please also refer to the separate dictated note~for this date of service dictated separately.~Patient seen individually. Discussed the patient with Nursing staff reviewed the chart.~Reviewed interim history and current functioning. Reviewed vital signs,~Labs/ Radiology~and current medications noted below. Continue current treatment with the changes noted in the dictated addendum note Assessment: Vital Signs/I&O: Vital Signs Date Time Temp Pulse Resp B/P (MAP) Pulse Ox O2 Delivery O2 Flow Rate FiO2 09/16/19 15:46 98.6 112 20 129/83 (98) 94 Room Air I & O 09/15/19 09/15/19 09/16/19 15:00 23:00 07:00 Intake Total 540 ml 480 ml Balance 540 ml 480 ml Labs: Laboratory Tests Test 09/16/19 05:59 White Blood Count 7.3 x10^3/uL (4.0-11.0) Red Blood Count 4.28 x10^6/uL (3.50-5.40) Hemoglobin 12.9 g/dL (12.0-15.5) Hematocrit 39.8 % (36.0-47.0) Mean Corpuscular Volume 93 fL (79-100) Mean Corpuscular Hemoglobin 30 pg (25-35) Mean Corpuscular Hemoglobin Concent 32 g/dL (31-37) Red Cell Distribution Width 14.3 % (11.5-14.5) Platelet Count 145 x10^3/uL (140-400) Neutrophils (%) (Auto) 73 % (31-73) Lymphocytes (%) (Auto) 15 % (24-48) L Monocytes (%) (Auto) 10 % (0-9) H Eosinophils (%) (Auto) 1 % (0-3) Basophils (%) (Auto) 0 % (0-3) Neutrophils # (Auto) 5.3 x10^3uL (1.8-7.7) Lymphocytes # (Auto) 1.1 x10^3/uL (1.0-4.8) Monocytes # (Auto) 0.7 x10^3/uL (0.0-1.1) Eosinophils # (Auto) 0.1 x10^3/uL (0.0-0.7) Basophils # (Auto) 0.0 x10^3/uL (0.0-0.2) Sodium Level 145 mmol/L (136-145) Potassium Level 3.9 mmol/L (3.5-5.1) Chloride Level 109 mmol/L (98-107) H Carbon Dioxide Level 28 mmol/L (21-32) Anion Gap 8 (6-14) Blood Urea Nitrogen 22 mg/dL (7-20) H Creatinine 0.8 mg/dL (0.6-1.0) Estimated GFR (Cockcroft-Gault) 74.7 BUN/Creatinine Ratio 28 (6-20) H Glucose Level 88 mg/dL (70-99) Calcium Level 8.9 mg/dL (8.5-10.1) Total Bilirubin 0.4 mg/dL (0.2-1.0) Aspartate Amino Transferase (AST) 18 U/L (15-37) Alanine Aminotransferase (ALT) 25 U/L (14-59) Alkaline Phosphatase 116 U/L (46-116) Total Protein 6.9 g/dL (6.4-8.2) Albumin 3.3 g/dL (3.4-5.0) L Albumin/Globulin Ratio 0.9 (1.0-1.7) L Current Medications: I have reviewed the current psychotropics carefully including drug interactions. Risk benefit ratio favors no change other than as noted in my dictated progress note. Diagnosis: Problems: (1) Major neurocognitive disorder due to Alzheimer's disease, with behavioral disturbance (2) Anxiety disorder (3) Dementia in Alzheimer's disease with delusions (4) Dementia in Alzheimer's disease with depression (5) Dementia, vascular, with delusions (6) Dementia, vascular, with depression (7) Impulse control disorder MICHELLE CALDERÓN MD Sep 16, 2019 21:50
[2019-09-17] MEDS: LEVOTHYROXINE 125 MCG TABLET PO SCH (05:35)
[2019-09-17 06:24] VITALS: BP 138/79
[2019-09-17] MEDS: POTASSIUM CHLORIDE 20 MEQ TABLET.ER. PO SCH ×2 (07:52→17:07)
[2019-09-17] MEDS: LISINOPRIL 20 MG TABLET PO SCH (07:52)
[2019-09-17] MEDS: DONEPEZIL HCL 10 MG TABLET PO SCH (07:52)
[2019-09-17] MEDS: DIVALPROEX 125 MG CAP.SPRINK PO SCH ×2 (07:53→17:07)
[2019-09-17] MEDS: POLYETHYLENE GLYCOL 3350 17 GM PACKET. PO SCH (07:53)
[2019-09-17] MEDS: QUEtiapine 25 MG TABLET. PO SCH ×2 (07:53→17:07)
[2019-09-17] MEDS: MEMANTINE 10 MG TABLET. PO SCH ×2 (07:53→20:29)
--- NOTE | 2019-09-17 08:01 | PDOC ---
Exam Note: Steve Note: S/O: This note is a late entry for DOS 09/15/2019 covers elements not covered in my initial note. Discussed the patient with nursing staff, reviewed the chart. The patient was seen on audio-visual rounds in the evening with Leola LOZOYA. Nursing report was with Lucio LOZOYA. Patient has been paranoid, hallucinating at times. Received Zyprexa at one point, running down the hallways, staring at the ceiling. She does eat her meals herself, gets finger food. ROS: Ambulation impaired at times. No CV, , Pulmonary, Eye, ENT system symptoms on review. MSE: Oriented to herself. Insight and judgment, recent and remote memory, attention and concentration, fund of knowledge is poor consistent with her diagnosis. Labs: Reviewed. Imp: Major neurocognitive disorder Alzheimer, vascular with delusion, depression, behavioral disturbance. Anxiety disorder unspecified. Impulse control disorder unspecified. Plan: Continue psychotropics from initial note. Assessment: Vital Signs/I&O: VS - Last 72 Hours, by Label Date Time Temp Pulse Resp B/P (MAP) Pulse Ox O2 Delivery O2 Flow Rate FiO2 09/17/19 07:52 79 138/79 09/17/19 06:24 98.4 79 20 138/79 (98) 95 09/16/19 15:46 98.6 112 20 129/83 (98) 94 Room Air 09/16/19 08:24 75 121/69 09/16/19 06:22 97.5 75 16 121/69 (86) 99 09/15/19 15:44 98.2 80 20 136/73 (94) 96 Room Air 09/15/19 08:21 101 148/93 09/15/19 06:23 97.4 101 20 148/93 (111) 98 09/14/19 16:04 98.0 57 20 124/81 (95) 97 09/14/19 08:18 97 117/76 Vital Signs Date Time Temp Pulse Resp B/P (MAP) Pulse Ox O2 Delivery O2 Flow Rate FiO2 09/17/19 07:52 79 138/79 09/17/19 06:24 98.4 20 95 09/16/19 15:46 Room Air I & O 09/16/19 09/16/19 09/17/19 15:00 23:00 07:00 Intake Total 600 ml 480 ml Balance 600 ml 480 ml Current Medications: I have reviewed the current psychotropics carefully including drug interactions. Risk benefit ratio favors no change other than as noted in my dictated progress note. Diagnosis: Problems: (1) Major neurocognitive disorder due to Alzheimer's disease, with behavioral disturbance (2) Anxiety disorder (3) Dementia in Alzheimer's disease with delusions (4) Dementia in Alzheimer's disease with depression (5) Dementia, vascular, with delusions (6) Dementia, vascular, with depression (7) Impulse control disorder MICHELLE CALDEÓRN MD Sep 17, 2019 08:00
--- NOTE | 2019-09-17 08:20 | PDOC ---
Exam Note: Steve Note: S/O: This note is a late entry for DOS 09/16/2019 covers elements not covered in my initial note. Discussed the patient with nursing staff, reviewed the chart. The patient was seen on audio-visual rounds in the evening with Samy RN. Nursing report was with Samy RN. She slept 8 hours previous night. She has been quite agitated, paranoid, psychotic at times, grabbing at another demented patient and later grabbing at nursing staff and grabbed entire shirt. She was restless, had to be in [facility]. ROS: Ambulation impaired at times. No CV, , Pulmonary, Eye system symptoms on review. MSE: Oriented to herself. Insight and judgment, recent and remote memory, attention and concentration, fund of knowledge is poor consistent with her diagnosis. Labs: Reviewed. CBC is unremarkable. BUN was better. Does not seemed to have UTI but if there is foul smelling urine, we will repeat UA. Imp: Major neurocognitive disorder Alzheimer, vascular with delusion, depression, behavioral disturbance. Anxiety disorder unspecified. Impulse control disorder unspecified. Plan: Continue psychotropics from initial note. Assessment: Vital Signs/I&O: Vital Signs Date Time Temp Pulse Resp B/P (MAP) Pulse Ox O2 Delivery O2 Flow Rate FiO2 09/17/19 07:52 79 138/79 09/17/19 06:24 98.4 20 95 09/16/19 15:46 Room Air I & O 09/16/19 09/16/19 09/17/19 15:00 23:00 07:00 Intake Total 600 ml 480 ml Balance 600 ml 480 ml Current Medications: I have reviewed the current psychotropics carefully including drug interactions. Risk benefit ratio favors no change other than as noted in my dictated progress note. Diagnosis: Problems: (1) Major neurocognitive disorder due to Alzheimer's disease, with behavioral disturbance (2) Anxiety disorder (3) Dementia in Alzheimer's disease with delusions (4) Dementia in Alzheimer's disease with depression (5) Dementia, vascular, with delusions (6) Dementia, vascular, with depression (7) Impulse control disorder MICHELLE CALDERÓN MD Sep 17, 2019 08:20
[2019-09-17 15:56] VITALS: BP 153/68
[2019-09-17] MEDS: MIRTAZAPINE 7.5 MG TABLET. PO SCH (20:30)
[2019-09-17] MEDS: MELATONIN 3 MG TABLET PO SCH (20:30)
--- NOTE | 2019-09-17 22:10 | PDOC ---
Exam Note: Steve Note: Please also refer to the separate dictated note~for this date of service dictated separately.~Patient seen individually. Discussed the patient with Nursing staff reviewed the chart.~Reviewed interim history and current functioning. Reviewed vital signs,~Labs/ Radiology~and current medications noted below. Continue current treatment with the changes noted in the dictated addendum note Assessment: Vital Signs/I&O: Vital Signs Date Time Temp Pulse Resp B/P (MAP) Pulse Ox O2 Delivery O2 Flow Rate FiO2 09/17/19 15:56 98.5 72 18 153/68 (96) 97 09/16/19 15:46 Room Air I & O 09/16/19 09/16/19 09/17/19 15:00 23:00 07:00 Intake Total 600 ml 480 ml Balance 600 ml 480 ml Current Medications: I have reviewed the current psychotropics carefully including drug interactions. Risk benefit ratio favors no change other than as noted in my dictated progress note. Diagnosis: Problems: (1) Major neurocognitive disorder due to Alzheimer's disease, with behavioral disturbance (2) Anxiety disorder (3) Dementia in Alzheimer's disease with delusions (4) Dementia in Alzheimer's disease with depression (5) Dementia, vascular, with delusions (6) Dementia, vascular, with depression (7) Impulse control disorder MICHELLE CALDERÓN MD Sep 17, 2019 22:10
[2019-09-18 04:42] VITALS: BP 120/79
[2019-09-18] MEDS: LEVOTHYROXINE 125 MCG TABLET PO SCH (06:22)
[2019-09-18] MEDS: MEMANTINE 10 MG TABLET. PO SCH ×2 (07:42→20:06)
[2019-09-18] MEDS: POLYETHYLENE GLYCOL 3350 17 GM PACKET. PO SCH (07:42)
[2019-09-18] MEDS: POTASSIUM CHLORIDE 20 MEQ TABLET.ER. PO SCH ×2 (07:42→17:10)
[2019-09-18] MEDS: DONEPEZIL HCL 10 MG TABLET PO SCH (07:42)
[2019-09-18] MEDS: DIVALPROEX 125 MG CAP.SPRINK PO SCH ×2 (07:42→17:03)
[2019-09-18] MEDS: QUEtiapine 25 MG TABLET. PO SCH ×2 (07:43→17:03)
[2019-09-18] MEDS: LISINOPRIL 20 MG TABLET PO SCH (07:43)
--- NOTE | 2019-09-18 10:00 | PDOC ---
Exam Note: Steve Note: S/O: This note is a late entry for DOS 09/17/2019 covers elements not covered in my initial note. Discussed the patient with nursing staff, reviewed the chart. The patient was seen on audio-visual rounds in the evening with Leola LOZOYA. Nursing report was with Samy LOZOYA. I received a message from Varsha Masrh, social service staff that had reviewed the patient and the [facility] [place] physician maybe calling me. At this point the patient is appropriate to be discharged from a psychiatric standpoint but the [facility] and [facility] have put a hold on any admissions or discharges to the unit consequently. Patient remains on the unit because of COVID-19 having spread on the unit. ROS: Ambulation impaired. No CV, , Pulmonary, Eye, ENT system symptoms on review. Reliability poor. MSE: Oriented to herself. Insight and judgment, recent and remote memory, attention and concentration, fund of knowledge is poor consistent with her diagnosis. Labs: Reviewed. Imp: Major neurocognitive disorder Alzheimer, vascular with delusion, depr ession, behavioral disturbance. Anxiety disorder unspecified. Impulse control disorder unspecified. Plan: Continue psychotropics from initial note. Assessment: Vital Signs/I&O: Vital Signs Date Time Temp Pulse Resp B/P (MAP) Pulse Ox O2 Delivery O2 Flow Rate FiO2 09/18/19 07:43 74 120/79 09/18/19 04:42 98.1 16 99 09/16/19 15:46 Room Air I & O 09/17/19 09/17/19 09/18/19 14:59 22:59 06:59 Intake Total 720 ml 480 ml Balance 720 ml 480 ml Current Medications: I have reviewed the current psychotropics carefully including drug interactions. Risk benefit ratio favors no change other than as noted in my dictated progress note. Diagnosis: Problems: (1) Major neurocognitive disorder due to Alzheimer's disease, with behavioral disturbance (2) Anxiety disorder (3) Dementia in Alzheimer's disease with delusions (4) Dementia in Alzheimer's disease with depression (5) Dementia, vascular, with delusions (6) Dementia, vascular, with depression (7) Impulse control disorder MICHELLE CALDERÓN MD Sep 18, 2019 10:00
--- NOTE | 2019-09-18 11:21 | TX PLAN ---
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 Change Sleep, Anxiety/Panic, Combative, Confusion/Disoriented, Poor impulse control Problem in Patient's Words: Nicolasa is unable to express herself in a sensical manner related to advanced dementia. Per Nicolasa's care facility, [facility], Nicolasa's behavior is a danger to herslef and others. They are unable to manage her behaviors at present time. Additional Admission Comments: Per intake record, Nicolasa has been combative towards staff/physician/spouse, increasngly agitated, screaming out, throwing household items, broke a vase and chair, insomnia, and uncontrollably eating. Problems Active Problems: Pacing the unit Restless Agitated Beating fists on table, nursning station windows Bit nursning staff Inactive Problems: Medication compliant Pt Strengths/Limitations Ability for Dewey: Poor Cognitive Functioning/Ability: Poor Communication Skills/Ability: Poor Financial Resources: Fair Insight/Judgement: Poor Intellectual Ability: Poor Physical Health: Fair Social Skills: Poor Stability in Family: Good Verbal Skills: Poor Discharge Criteria Discharge Criteria: Adequate arrangements @DC, Improved behavior, Improved mood/thought Preliminary Discharge Plan Preliminary DC Plan: Memory Care Special Precautions Special Precautions: Agitation/Assault Fall Risk: High Initial D/C Plan [facility] Identified Discharge Needs: Follow up with PCP and out patient psychaitry if available. Currently Utilized Resources Currently Utilized Resources/P: [facility] provides 24 hour care. PCP access Dr. Morales, neurologist, follows. Referrals Community Resources: Out patient psychiatry if available Identified Problems/Hx/Goals Objectives/Short-Term Goals Short Term Goals: Control abnormal behavior, Dec. Aggression, Dec. Outbursts, Medication Stabilization, Monitor Med Effects Short Term Goals in Patient's: Per POA, "Hoping she gets some peace." Interventions/Frequency Staff Interventions/Frequency&: Nursing provides routine safety checks, adl support, medication administration, and assessments. Psychiatry 3-5 times weekly. SW visits twice weekly. 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 Education: Nicolasa graduated high school and obtained a bachelors degree in health science from [place], [place]. Community Follow-up PCP Neurology with Dr. Morales Out patient psychiatry if available Community Provider/Family Inpu: Time, spouse/POA, participated in treatment team call on this date. [facility] has approved Nicolasa thru 08/27/19, review is due at that time. 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 She is averaging eight hours of sleep at night. She is ambulatory and paces the unit. Level of agitation fluctuates over the course of a day and Mandi received prn on 09/16/19 for agitation and was assisted to quiet trujillo for de-escalation. Moncho rodriguez will be tested for Covid-19 and if result are negative will be discharged to [facility] where she has been accepted for admission. Call placed to Eric, spouse/POA, to update on the above and he was in agreement with plan. SW will follow. NICHOL EMERY Sep 18, 2019 11:20
[2019-09-18 15:50] VITALS: BP 161/77
[2019-09-18] MEDS: MELATONIN 3 MG TABLET PO SCH (20:06)
[2019-09-18] MEDS: MIRTAZAPINE 7.5 MG TABLET. PO SCH (20:06)
--- NOTE | 2019-09-18 22:14 | PDOC ---
Exam Note: Steve Note: Please also refer to the separate dictated note~for this date of service dictated separately.~Patient seen individually. Discussed the patient with Nursing staff reviewed the chart.~Reviewed interim history and current functioning. Reviewed vital signs,~Labs/ Radiology~and current medications noted below. Continue current treatment with the changes noted in the dictated addendum note Assessment: Vital Signs/I&O: Vital Signs Date Time Temp Pulse Resp B/P (MAP) Pulse Ox O2 Delivery O2 Flow Rate FiO2 09/18/19 15:50 98.3 98 18 161/77 (105) 93 09/16/19 15:46 Room Air I & O 09/17/19 09/17/19 09/18/19 15:00 23:00 07:00 Intake Total 720 ml 480 ml Balance 720 ml 480 ml Current Medications: I have reviewed the current psychotropics carefully including drug interactions. Risk benefit ratio favors no change other than as noted in my dictated progress note. Diagnosis: Problems: (1) Major neurocognitive disorder due to Alzheimer's disease, with behavioral disturbance (2) Anxiety disorder (3) Dementia in Alzheimer's disease with delusions (4) Dementia in Alzheimer's disease with depression (5) Dementia, vascular, with delusions (6) Dementia, vascular, with depression (7) Impulse control disorder MICHELLE CALDERÓN MD Sep 18, 2019 22:14
[2019-09-19] MEDS: LEVOTHYROXINE 125 MCG TABLET PO SCH (05:10)
[2019-09-19 06:18] VITALS: BP 153/80
[2019-09-19] MEDS: QUEtiapine 25 MG TABLET. PO SCH ×2 (07:44→17:14)
[2019-09-19] MEDS: LISINOPRIL 20 MG TABLET PO SCH (07:45)
[2019-09-19] MEDS: DONEPEZIL HCL 10 MG TABLET PO SCH (07:45)
[2019-09-19] MEDS: POLYETHYLENE GLYCOL 3350 17 GM PACKET. PO SCH (07:45)
[2019-09-19] MEDS: MEMANTINE 10 MG TABLET. PO SCH (07:45)
[2019-09-19] MEDS: POTASSIUM CHLORIDE 20 MEQ TABLET.ER. PO SCH ×2 (07:45→17:18)
[2019-09-19] MEDS: DIVALPROEX 125 MG CAP.SPRINK PO SCH ×2 (07:45→17:14)
[2019-09-19 15:54] VITALS: BP 113/67
[2019-09-19] MEDS: MIRTAZAPINE 7.5 MG TABLET. PO SCH (20:14)
[2019-09-19] MEDS: MELATONIN 3 MG TABLET PO SCH (20:14)
--- NOTE | 2019-09-19 22:16 | PDOC ---
Exam Note: Steve Note: Please also refer to the separate dictated note~for this date of service dictated separately.~Patient seen individually. Discussed the patient with Nursing staff reviewed the chart.~Reviewed interim history and current functioning. Reviewed vital signs,~Labs/ Radiology~and current medications noted below. Continue current treatment with the changes noted in the dictated addendum note Assessment: Vital Signs/I&O: Vital Signs Date Time Temp Pulse Resp B/P (MAP) Pulse Ox O2 Delivery O2 Flow Rate FiO2 09/19/19 15:54 97.7 70 16 113/67 (82) 96 09/16/19 15:46 Room Air I & O 09/18/19 09/18/19 09/19/19 15:00 23:00 07:00 Intake Total 440 ml 480 ml Balance 440 ml 480 ml Current Medications: I have reviewed the current psychotropics carefully including drug interactions. Risk benefit ratio favors no change other than as noted in my dictated progress note. Diagnosis: Problems: (1) Major neurocognitive disorder due to Alzheimer's disease, with behavioral disturbance (2) Anxiety disorder (3) Dementia in Alzheimer's disease with delusions (4) Dementia in Alzheimer's disease with depression (5) Dementia, vascular, with delusions (6) Dementia, vascular, with depression (7) Impulse control disorder MICHELLE CALDERÓN MD Sep 19, 2019 22:16
[2019-09-20] MEDS: LEVOTHYROXINE 125 MCG TABLET PO SCH (02:20)
[2019-09-20 05:41] VITALS: BP 138/75
[2019-09-20] MEDS ORDERED: DIVA125C2 PO (06:23)
[2019-09-20] MEDS ORDERED: MIRT15TA PO (06:24)
[2019-09-20] MEDS ORDERED: OLAN5TAB5 PO (06:25)
[2019-09-20] MEDS ORDERED: POTA10TA5 PO (06:25)
[2019-09-20] MEDS ORDERED: QUET25TA5 PO ×2 (06:26)
[2019-09-20] MEDS ORDERED: TRAZ-120 PO (06:27)
[2019-09-20 06:41] VITALS: BP 132/80
--- NOTE | 2019-09-20 07:59 | PDOC ---
Exam Note: Steve Note: S/O: This note is a late entry for DOS 09/18/2019 covers elements not covered in my initial note. Discussed the patient with treatment team meeting with the entire team in the morning including Miguelina, social service staff, nursing staff, and myself reviewed the chart. Also met with the patient indiv idually in the evening on audio-visual rounds. Nursing report was with Samy RN. I have been informed that every patient will be tested in sequence for COVID-19 and disposition plans would be determined by the result of the testing. Appetite is 75%. Sleeping over 7 hours. Social service staff discussed patient be transferred to [facility]. She has been authorized by [facility] till the September 26 consequent to restrictions put on discharge by [facility]. ROS: Ambulation impaired. No CV, , Pulmonary, Eye, ENT system symptoms on review. Reliability poor. MSE: Oriented to herself. Insight and judgment, recent and remote memory, attention and concentration, fund of knowledge is poor consistent with her troy gnosis. Labs: Reviewed. Imp: Major neurocognitive disorder Alzheimer, vascular with delusion, depression, behavioral disturbance. Anxiety disorder unspecified. Impulse control disorder unspecified. Plan: Continue psychotropics from initial note. Assessment: Vital Signs/I&O: Vital Signs Date Time Temp Pulse Resp B/P (MAP) Pulse Ox O2 Delivery O2 Flow Rate FiO2 09/20/19 06:41 98.8 112 20 132/80 (97) 96 09/16/19 15:46 Room Air l I & O 09/19/19 09/19/19 09/20/19 15:00 23:00 07:00 Intake Total 480 ml 480 ml Balance 480 ml 480 ml Current Medications: I have reviewed the current psychotropics carefully including drug interactions. Risk benefit ratio favors no change other than as noted in my dictated progress note. Diagnosis: Problems: (1) Major neurocognitive disorder due to Alzheimer's disease, with behavioral disturbance (2) Anxiety disorder (3) Dementia in Alzheimer's disease with delusions (4) Dementia in Alzheimer's disease with depression (5) Dementia, vascular, with delusions (6) Dementia, vascular, with depression (7) Impulse control disorder MICHELLE CALDERÓN MD Sep 20, 2019 07:59
[2019-09-20] MEDS ORDERED: POLY2500 PO (13:52)
[2019-09-20] MEDS ORDERED: HYDR42CR2 TP (13:52)
[2019-09-20] MEDS ORDERED: MAGN296S4 PO (13:52)
[2019-09-20] MEDS ORDERED: METR45CR TP (13:52)
[2019-09-20] MEDS ORDERED: GLYC1SUP RC (13:52)
--- NOTE | 2019-09-20 17:29 | DS ---
DATE OF DISCHARGE: 09/20/2019 DISCHARGE SUMMARY AND PSYCHIATRIC PROGRESS NOTE This note covers elements not covered in my initial note of 09/20/2019. REASON FOR ADMISSION: Please refer to the admission history for details. Briefly, the patient is a 54-year-old female, referred to us from [facility] after she was sent from there to the [facility] Emergency Room and the Emergency Room contacted us on account of the patient's combative and agitated behaviors towards staff, doctors and her spouse. She was screaming and throwing household items. She broke a vase and a chair. She was not sleeping and [facility] an [facility]. She was combative with EMT and at [facility]. She was yelling out. She had been living at home with spouse until 05/2019 and since then had been at the above facility. She had failed outpatient psychiatric interventions resulting in this referral. SIGNIFICANT FINDINGS AND CLINICAL COURSE: Following admission, the patient was seen daily individually by myself from a psychiatric standpoint, medical followup with Dr. Bhakta/Dr. Merrill. The patient was extremely agitated, psychotic with marked mood lability and aggression. Adjustments were made in her psychotropics and she seemed to be doing better on a combination of Depakote Sprinkle 500 b.i.d. with a therapeutic blood level of 66. Seroquel was adjusted to 37.5 mg at 0900, 25 mg at 1700. She had previously been on Namenda 10 b.i.d. and Aricept 10 mg a day, but these were discontinued as it was felt these would have little to no benefit for her dementia given the fairly advanced dementia she was suffering from. She also remained on melatonin 6 mg at bedtime, Zyprexa p.r.n., Remeron 15 mg at bedtime, trazodone 50 mg at bedtime p.r.n., may repeat x 1 for insomnia. peoplesoft programmer of 09/20/2019, I was called by the nursing staff. The patient had a fall around 6:00 a.m. and fell forward on her face and also sustained a scalp injury. She was transferred to the Emergency Room for medical management and we may readmit her once she is deemed to be stable. REVIEW OF SYSTEMS: Prior to discharge on 09/20/2019, no CV, , pulmonary, eye, ENT system symptoms on review. MENTAL STATUS EXAM: Oriented to herself. Insight, judgment, recent and remote memory, attention, concentration, fund of knowledge poor, consistent with her diagnosis. FINAL DIAGNOSES: Major neurocognitive disorder, Alzheimer, vascular with delusion, depression, behavioral disturbance; anxiety disorder, unspecified; impulse control disorder, unspecified; hypothyroidism; expressive aphasia. Rest unchanged from admission. DISCHARGE MEDICATIONS: Please refer to the MRAD. When she returns to us, we may reduce her Depakote and Seroquel to prevent any recurrent falls, though other than this one episode, she had had no falls and was in fact fairly steady in her gait, wandering in the hallways, and we will reassess this carefully if she were to return to us. Time for discharge and management greater than 30 minutes. MAN Lance CALDERÓN MD DR: JOSH/corrie JOB#: [id number] / [id number]
--- NOTE | 2019-09-20 17:45 | PN ---
DATE: 09/19/2019 PSYCHIATRIC PROGRESS NOTE This is a late entry 09/19/2019 covers the elements not covered in my initial note SUBJECTIVE: The patient was discussed with nursing staff and seen individually on audiovisual rounds in the evening of 09/19/2019. Discussed with DEVORA Pablo. Overall, the patient is doing better. She remains confused, but not aggressive, less restless. REVIEW OF SYSTEMS: No CV, , pulmonary, eye, ENT system symptoms on review. Reliability poor. MENTAL STATUS EXAM: Oriented to herself. Insight, judgment, recent and remote memory, attention, concentration, fund of knowledge poor, consistent with her diagnoses. IMPRESSION: Major neurocognitive disorder, Alzheimer, vascular with delusion, depression, behavioral disturbance; anxiety disorder, unspecified; impulse control disorder, unspecified. Rest unchanged. PLAN: No change from initial note, but we will go ahead and stop the Aricept 10 mg a day as this probably has little benefit for her memory deficits given the stage of her dementia and we will also go ahead and stop the Namenda 10 mg b.i.d. Continue Depakote 500 b.i.d., Seroquel 37.5 mg a.m., 25 mg at 1700, melatonin 6 mg at bedtime, Remeron 15 mg at bedtime, trazodone at bedtime p.r.n. Valproic acid level is therapeutic at 66. MAN Lance CALDERÓN MD DR: JOSH/corrie JOB#: [id number] / [id number]
--- NOTE | 2019-09-20 22:16 | PDOC ---
Exam Note: Steve Note: Please also refer to the separate dictated note~for this date of service dictated separately.~Patient seen individually. Discussed the patient with Nursing staff reviewed the chart.~Reviewed interim history and current functioning. Reviewed vital signs,~Labs/ Radiology~and current medications noted below. Continue current treatment with the changes noted in the dictated addendum note Assessment: Vital Signs/I&O: Vital Signs Date Time Temp Pulse Resp B/P (MAP) Pulse Ox O2 Delivery O2 Flow Rate FiO2 09/20/19 06:41 98.8 112 20 132/80 (97) 96 09/16/19 15:46 Room Air I & O 09/19/19 09/19/19 09/20/19 15:00 23:00 07:00 Intake Total 480 ml 480 ml Balance 480 ml 480 ml Current Medications: I have reviewed the current psychotropics carefully including drug interactions. Risk benefit ratio favors no change other than as noted in my dictated progress note. Diagnosis: Problems: (1) Major neurocognitive disorder due to Alzheimer's disease, with behavioral disturbance (2) Anxiety disorder (3) Dementia in Alzheimer's disease with delusions (4) Dementia in Alzheimer's disease with depression (5) Dementia, vascular, with delusions (6) Dementia, vascular, with depression (7) Impulse control disorder MICHELLE CALDERÓN MD Sep 20, 2019 22:16
--- NOTE | 2019-09-21 08:02 | PDOC ---
Exam Note: Steve Note: S/O: The dictation # was [id number]. This note is a late entry for DOS 09/19/2019 covers elements not covered in my initial note. Discussed the patient with nursing staff, reviewed the chart. Also met with the patient individually in the evening on audio-visual rounds. Nursing report was with Samy LOZOYA. ROS: Ambulation impaired. No CV, , Pulmonary, Eye, ENT system symptoms on review. Reliability poor. MSE: Oriented to herself. Insight and judgment, recent and remote memory, attention and concentration, fund of knowledge is poor consistent with her diagnosis. Labs: Reviewed. Imp: Major neurocognitive disorder Alzheimer, vascular with delusion, depression, behavioral disturbance. Anxiety disorder unspecified. Impulse control disorder unspecified. Plan: Continue psychotropics from initial note. Assessment: Vital Signs/I&O: Vital Signs Date Time Temp Pulse Resp B/P (MAP) Pulse Ox O2 Delivery O2 Flow Rate FiO2 09/20/19 06:41 98.8 112 20 132/80 (97) 96 09/16/19 15:46 Room Air Current Medications: I have reviewed the current psychotropics carefully including drug interactions. Risk benefit ratio favors no change other than as noted in my dictated progress note. Diagnosis: Problems: (1) Major neurocognitive disorder due to Alzheimer's disease, with behavioral disturbance (2) Anxiety disorder (3) Dementia in Alzheimer's disease with delusions (4) Dementia in Alzheimer's disease with depression (5) Dementia, vascular, with delusions (6) Dementia, vascular, with depression (7) Impulse control disorder MICHELLE CALDERÓN MD Sep 21, 2019 08:01
--- NOTE | 2019-09-21 08:03 | PDOC ---
Exam Note: Steve Note: Dictation # was [id number]. This note is a late entry for DOS 09/20/2019. Please also refer to the separate dictated note~for this date of service dictated separately.~Patient seen individually. Discussed the patient with Nursing staff reviewed the chart.~Reviewed interim history and current functioning. Reviewed vital signs,~Labs/ Radiology~and current medications noted below. Continue current treatment with the changes noted in the dictated addendum note Assessment: Vital Signs/I&O: Vital Signs Date Time Temp Pulse Resp B/P (MAP) Pulse Ox O2 Delivery O2 Flow Rate FiO2 09/20/19 06:41 98.8 112 20 132/80 (97) 96 09/16/19 15:46 Room Air Current Medications: I have reviewed the current psychotropics carefully including drug interactions. Risk benefit ratio favors no change other than as noted in my dictated progress note. Diagnosis: Problems: (1) Major neurocognitive disorder due to Alzheimer's disease, with behavioral disturbance (2) Anxiety disorder (3) Dementia in Alzheimer's disease with delusions (4) Dementia in Alzheimer's disease with depression (5) Dementia, vascular, with delusions (6) Dementia, vascular, with depression (7) Impulse control disorder MICHELLE CALDERÓN MD Sep 21, 2019 08:03
--- NOTE | 2019-09-21 08:19 | PDOC ---
Exam Note: Steve Note: The dictation #[id number]. This note is a late entry for DOS 09/20/2019. Please ignore the earlier entry for 09/20/2019 since it is an error. Please also refer to the separate dictated note~for this date of service dictated separately.~Patient seen individually. Discussed the patient with Nursing staff reviewed the chart.~Reviewed interim history and current functioning. Reviewed vital signs,~Labs/ Radiology~and current medications noted below. Continue current treatment with the changes noted in the dictated addendum note Assessment: Vital Signs/I&O: Vital Signs Date Time Temp Pulse Resp B/P (MAP) Pulse Ox O2 Delivery O2 Flow Rate FiO2 09/20/19 06:41 98.8 112 20 132/80 (97) 96 09/16/19 15:46 Room Air Current Medications: I have reviewed the current psychotropics carefully including drug interactions. Risk benefit ratio favors no change other than as noted in my dictated progress note. Diagnosis: Problems: (1) Major neurocognitive disorder due to Alzheimer's disease, with behavioral disturbance (2) Anxiety disorder (3) Dementia in Alzheimer's disease with delusions (4) Dementia in Alzheimer's disease with depression (5) Dementia, vascular, with delusions (6) Dementia, vascular, with depression (7) Impulse control disorder MICHELLE CALDERÓN MD Sep 21, 2019 08:19
== END 2019-09-20 07:25 | disposition short-term general hospital (02) | DRG 57 ==
LOC: GEROPSY 13:30
PROVIDERS: ADMIT Psychiatry & Neurology Psychiatry; ATTEND Psychiatry & Neurology Psychiatry
DX: G30.0 Alzheimer's disease with early onset (principal); R47.01 Aphasia; F02.81 Dementia in other diseases classified elsewhere, unspecified severity, with behavioral disturbance; F41.9 Anxiety disorder, unspecified; F32.9 Major depressive disorder, single episode, unspecified; F63.9 Impulse disorder, unspecified; E03.9 Hypothyroidism, unspecified; E87.6 Hypokalemia; G47.00 Insomnia, unspecified; H54.7 Unspecified visual loss; I10 Essential (primary) hypertension; K59.09 Other constipation; Z20.828 Contact with and (suspected) exposure to other viral communicable diseases; Z79.899 Other long term (current) drug therapy; Z90.710 Acquired absence of both cervix and uterus; Z91.83 Wandering in diseases classified elsewhere; W18.39XA Other fall on same level, initial encounter; Y93.89 Activity, other specified; Y92.89 Other specified places as the place of occurrence of the external cause; Y99.8 Other external cause status; Z88.8 Allergy status to other drugs, medicaments and biological substances; Z90.722 Acquired absence of ovaries, bilateral
CPT/HCPCS: 36415; 74018; 80053; 80061; 80164; 81001; 82140; 82306; 82607; 82947; 83036; 83540; 83550; 83605; 83735; 84436; 84443; 84480; 85025; 86592

== ENCOUNTER 2019-09-20 07:25 | Inpatient (IN) | payer OTHER ==
[~2019-09-20] VITALS: Ht 162.6 cm; Wt 68.0 kg
[~2019-09-20 07:25] MED LIST: DIVA125C2 PO; DONE10TA7 PO; LEVO125T PO; LISI40TA PO; MELA3TAB4 PO; MEMA10TA PO; MIRT15TA PO; OLAN5TAB5 PO; POTA10TA5 PO; QUET25TA5 PO; TRAZ-120 PO
[2019-09-20] MEDS ORDERED: IV NORMAL SALINE 1,000ML 1,000 ML IV ONE (07:45)
[2019-09-20 08:23] LABS: BASO # 0.1 x10^3/uL (0.0-0.2); BASO % 1 % (0-3); EOS # 0.1 x10^3/uL (0.0-0.7); EOS % 1 % (0-3); HEMATOCRIT 42.8 % (36.0-47.0); HEMOGLOBIN 14.1 g/dL (12.0-15.5); LYMPH # 0.4 x10^3/uL (1.0-4.8); LYMPH % 5 % (24-48); MEAN CORPUSCULAR HEMOGLOBIN 30 pg (25-35); MEAN CORPUSCULAR HGB CONC 33 g/dL (31-37); MEAN CORPUSCULAR VOLUME 91 fL (79-100); MONO # 0.5 x10^3/uL (0.0-1.1); MONO % 6 % (0-9); NEUT # 6.6 x10^3uL (1.8-7.7); NEUT % 87 % (31-73); PLATELET COUNT 162 x10^3/uL (140-400); RED BLOOD COUNT 4.69 x10^6/uL (3.50-5.40); RED CELL DISTRIBUTION WIDTH 14.1 % (11.5-14.5); WHITE BLOOD COUNT 7.6 x10^3/uL (4.0-11.0)
--- NOTE | 2019-09-20 08:34 | PHYS DOC ---
General Adult EDM: Chief Complaint: MECHANICAL FALL HPI: HPI: 54-year-old female [facility]. The patient has dementia so she is unable to provide a history. She is reported to walk around frequently looking up in the air and running into things. Is unclear exactly what happened today, but she seems to have tripped over something and fell flat onto her face. She has an injury to her scalp, her nose, and her right lower extremity. She was brought down by EMS. Since she hit her head, she was placed in cervical spine precautions. The patient is moving around and trying to get out of bed. She is not showing evidence of significant pain, but does not want to stand. She is not reported to have fever. She was on the floor that had several COVID 19 positive patients, so she is in isolation and she will be tested for coronavirus. Review of Systems: Review of Systems: Constitutional: Denies fever or chills Eyes: Denies change in visual acuity HENT: Head trauma, ecchymosis Respiratory: Denies cough or shortness of breath Cardiovascular: Denies chest pain or edema GI: Denies abdominal pain, nausea, vomiting, bloody stools or diarrhea : Denies dysuria Musculoskeletal: Right lower extremity pain Integument: Denies rash Neurologic: Denies headache, focal weakness or sensory changes Endocrine: Denies polyuria or polydipsia Lymphatic: Denies swollen glands Psychiatric: Denies depression or anxiety Heart Score: Risk Factors: Risk Factors: DM, Current or recent (<one month) smoker, HTN, HLP, family history of CAD, obesity. Risk Scores: Score 0 - 3: 2.5% MACE over next 6 weeks - Discharge Home Score 4 - 6: 20.3% MACE over next 6 weeks - Admit for Clinical Observation Score 7 - 10: 72.7% MACE over next 6 weeks - Early Invasive Strategies Current Medications: Current Meds: Current Medications Medications (Trade) Dose Ordered Sig/Noel Start Time Stop Time Status Last Admin Dose Admin Lorazepam (Ativan Inj) 2 mg 1X ONCE 09/20/19 07:45 09/20/19 07:48 DC 09/20/19 08:01 2 MG Sodium Chloride 1,000 ml @ 1,000 mls/hr 1X ONCE 09/20/19 07:45 09/20/19 08:44 09/20/19 08:01 1,000 MLS/HR Allergies: Allergies: Allergies Coded Allergies Type Severity Reaction Last Updated Verified codeine Allergy Unknown 08/14/19 Yes Physical Exam: PE: Constitutional: Well developed, well nourished, no acute distress, non-toxic appearance. [] HENT: Normocephalic, 3cm laceration top scalp, bilateral external ears normal, 1cm laceration inner upper lip, no oral exudates, nose swollen and tender to palpation. [] Eyes: PERRLA, EOMI, conjunctiva normal, no discharge. [] Neck: Normal range of motion, no tenderness, supple, no stridor. [] Cardiovascular: Heart rate regular rhythm, no murmur [] Lungs & Thorax: Bilateral breath sounds clear to auscultation [] Abdomen: Bowel sounds normal, soft, no tenderness, no masses, no pulsatile masses. [] Skin: Warm, dry, no erythema, no rash. [] Back: No tenderness, no CVA tenderness. [] Extremities: Tnderness with palpation of right knee [] Neurologic: Alert and oriented X 3, normal motor function, normal sensory function, no focal deficits noted. [] Psychologic: Affect normal, judgement normal, mood normal. [] Current Patient Data: Labs: Laboratory Tests Test 09/20/19 08:00 White Blood Count 7.6 x10^3/uL (4.0-11.0) Red Blood Count 4.69 x10^6/uL (3.50-5.40) Hemoglobin 14.1 g/dL (12.0-15.5) Hematocrit 42.8 % (36.0-47.0) Mean Corpuscular Volume 91 fL (79-100) Mean Corpuscular Hemoglobin 30 pg (25-35) Mean Corpuscular Hemoglobin Concent 33 g/dL (31-37) Red Cell Distribution Width 14.1 % (11.5-14.5) Platelet Count 162 x10^3/uL (140-400) Neutrophils (%) (Auto) 87 % (31-73) H Lymphocytes (%) (Auto) 5 % (24-48) L Monocytes (%) (Auto) 6 % (0-9) Eosinophils (%) (Auto) 1 % (0-3) Basophils (%) (Auto) 1 % (0-3) Neutrophils # (Auto) 6.6 x10^3uL (1.8-7.7) Lymphocytes # (Auto) 0.4 x10^3/uL (1.0-4.8) L Monocytes # (Auto) 0.5 x10^3/uL (0.0-1.1) Eosinophils # (Auto) 0.1 x10^3/uL (0.0-0.7) Basophils # (Auto) 0.1 x10^3/uL (0.0-0.2) EKG: EKG: [] Radiology/Procedures: Radiology/Procedures: [] Impressions: CHEST AP ONLY 09/20/2019 7:38 AM INDICATION: Fall COMPARISON: None available TECHNIQUE: Portable frontal view of the chest is provided. FINDINGS: The cardiomediastinal silhouette is within normal limits. Lungs are clear. There are no significant pleural effusions. There is no pulmonary vascular congestion. No pneumothorax. Linear lucency along the left anterolateral margin of the ninth rib may represent a nondisplaced fracture. IMPRESSION: Linear lucency along the left anterolateral ninth rib may represent a nondisplaced fracture. Correlate with point tenderness. Electronically signed by: Darrius Go MD (09/20/2019 9:14 AM) [facility] [place] DICTATED AND SIGNED BY: DARRIUS GO MD DATE: 09/20/19913 CC: ANKITA DELATORRE DO; RAVI CHANDRA DO ~ PQRS Compliance Statement: One or more of the following individualized dose reduction techniques were utilized for this examination: 1. Automated exposure control 2. Adjustment of the mA and/or kV according to patient size 3. Use of iterative reconstruction technique CT head and cervical spine without contrast 09/20/2019 7:38 AM INDICATION: Fall COMPARISON: None available TECHNIQUE: Multiple axial CT images of the head were obtained from skull base through the vertex without intravenous contrast. Multiple axial CT images of the cervical spine were obtained without intravenous contrast. Coronal and sagittal reformats are provided. FINDINGS: Head: Ventricles, sulci and basal cisterns are prominent compatible with mild/moderate generalized cerebral volume loss. Low-attenuation in the periventricular white matter is suggestive of chronic small vessel ischemic changes. There is no hydrocephalus. Nuno-white matter differentiation is normal. There is no acute intracranial hemorrhage. There is no mass, mass effect or midline shift. Posterior fossa is normal in appearance. Visualized portions of the orbits are normal. Paranasal sinuses are well aerated. Mastoid air cells are well aerated. Scalp and calvaria are normal. Cervical spine: Alignment of the cervical spine is normal. Skull base is intact. Craniocervical junction is normal in appearance. Atlantoaxial articulation is normal. Vertebral body heights are maintained without evidence for acute fracture. Facet joints are within normal limits. At C6-C7, there is a posterior disc osteophyte complex with moderate uncovertebral joint disease resulting in mild bilateral neuroforaminal stenosis and mild spinal canal stenosis. There is no prevertebral soft tissue swelling. Visualized portions of the lung apices are normal without evidence for suspicious pulmonary nodule or infiltrate. IMPRESSION: 1. No acute intracranial hemorrhage. Mild to moderate generalized cerebral volume loss. Low-attenuation in the periventricular white matter is suggestive of chronic small vessel ischemic changes. 2. No acute fracture or malalignment of the cervical spine. Mild cervical spondylosis centered at C6-C7. Electronically signed by: Darrius Go MD (09/20/2019 9:17 AM) [facility] [place] DICTATED AND SIGNED BY: DARRIUS GO MD DATE: 09/20/19916 CC: ANKITA DELATORRE DO; RAVI CHANDRA DO ~ KNEE RIGHT 3V, HIP RIGHT 2V WITH PELVIS 09/20/2019 7:38 AM INDICATION: Fall COMPARISON: None available. TECHNIQUE: 3 views of the right knee, AP view the pelvis and 2 dedicated views the right hip are provided. FINDINGS/ IMPRESSION: 1. Right knee: Mild medial joint space narrowing. No significant knee joint effusion. Patellar enthesopathy is identified. No acute fracture or dislocation. 2. Right hip: There is no acute fracture or dislocation. Joint spaces are maintained. Bone mineralization is within normal limits. Regional soft tissues are within normal limits. There is no soft tissue gas or osseous erosion. No radiopaque foreign body. Pelvic ring is intact. Superior and inferior pubic rami are intact. Sacroiliac joints are well aligned. Electronically signed by: Darrius Go MD (09/20/2019 9:12 AM) [facility] [place] DICTATED AND SIGNED BY: DARRIUS GO MD DATE: 09/20/19911 CC: ANKITA DELATORRE DO; RAVI CHANDRA DO ~ PQRS Compliance Statement: One or more of the following individualized dose reduction techniques were utilized for this examination: 1. Automated exposure control 2. Adjustment of the mA and/or kV according to patient size 3. Use of iterative reconstruction technique CT MAXILLOFACIAL WO CONTRAST 09/20/2019 7:38 AM Indication: Fall COMPARISON: None available. TECHNIQUE: Multiple axial CT images of the maxillofacial structures were obtained without intravenous contrast. Coronal and sagittal reformats are provided. FINDINGS: Orbits are normal in appearance. There is no lens dislocation. Globes are spherical and contour. No intraorbital or retro-orbital soft tissue abnormality. There is minimal soft tissue thickening along for head asymmetric to the left. There may be a nondisplaced fracture involving the right nasal bone, although this may be old. Correlate with area of trauma. Paranasal sinuses are well aerated. Nasal septum is predominantly midline. Keke bullosa on the right. Skull base is intact. Pterygoid plates are intact. Maxilla and mandible are intact. IMPRESSION: Subtle possible nondisplaced fracture involving the right nasal bone which may be chronic. Correlate with site of trauma. Electronically signed by: Darrius Go MD (09/20/2019 9:48 AM) [facility] [place] DICTATED AND SIGNED BY: DARRIUS GO MD DATE: 09/20/19947 CC: ANKITA DELATORRE DO; RAVI CHANDRA DO ~ Course & Med Decision Making: Course & Med Decision Making Pertinent Labs and Imaging studies reviewed. (See chart for details) The patient has a nondisplaced ninth rib fracture. Her CT of her head and cervical spine is negative for acute findings. See official report for more details. The knee and hip x-ray are negative for fracture. Patient did have a superficial laceration 1 cm in length on the bridge of her nose. I was able to repair this with Dermabond. See note below for more details. She had a 3 cm linear laceration of the top of her scalp which I repaired with 6 stephen. See note below for details. Her labs are unremarkable. Her COVID 19 test has not been performed yet due to concern about facial trauma. The patient does have a right nasal bone fracture that is nondisplaced. I do not believe this necessarily precludes coronavirus testing, but this could be deferred till tomorrow. The patient is stable to be readmitted to [facility]. 61 minutes of critical care time was spent on this patient exclusive of other billable procedures. [] Dragon Disclaimer: Dragon Disclaimer: This electronic medical record was generated, in whole or in part, using a voice recognition dictation system. Laceration Repair Lac Repair Indication: [] 3 cm linear laceration of the superior scalp. 1 cm superficial laceration of the bridge of the nose. Procedure: Given the patient's mental status, consent for treatment was inferred by necessity for treatment. No anesthesia was used. The wounds were thoroughly irrigated with normal saline. No foreign bodies were found. I placed 6 stephen in her superior scalp wound. There was good skin approximation. Bleeding was controlled. No dressing was applied. I placed 2 layers of Dermabond skin adhesive over her linear laceration of the bridge of her nose. There was good skin approximation. Bleeding was controlled. No dressing was applied. Total repaired wound length: Laceration 1: 3 cm. Laceration to: 1 cm. Other Items: None The patient tolerated the procedure well Complications: 2 lacerations, dementia Departure Departure: Impression: Primary Impression: Rib fracture Qualified Codes: S22.32XA - Fracture of one rib, left side, initial encounter for closed fracture Additional Impressions: Nasal bone fracture Qualified Codes: S02.2XXA - Fracture of nasal bones, initial encounter for closed fracture Facial laceration Qualified Codes: S01.81XA - Laceration without foreign body of other part of head, initial encounter Lip laceration Qualified Codes: S01.511A - Laceration without foreign body of lip, initial encounter Scalp laceration Qualified Codes: S01.01XA - Laceration without foreign body of scalp, initial encounter Disposition: 01 HOME, SELF-CARE Condition: STABLE Referrals: ANKITA DELATORRE DO (PCP) RAVI CHANDRA DO Sep 20, 2019 08:34
--- NOTE | 2019-09-20 09:15 | RAD ---
KNEE RIGHT 3V, HIP RIGHT 2V WITH PELVIS 09/20/2019 7:38 AM INDICATION: Fall COMPARISON: None available. TECHNIQUE: 3 views of the right knee, AP view the pelvis and 2 dedicated views the right hip are provided. FINDINGS/ IMPRESSION: 1. Right knee: Mild medial joint space narrowing. No significant knee joint effusion. Patellar enthesopathy is identified. No acute fracture or dislocation. 2. Right hip: There is no acute fracture or dislocation. Joint spaces are maintained. Bone mineralization is within normal limits. Regional soft tissues are within normal limits. There is no soft tissue gas or osseous erosion. No radiopaque foreign body. Pelvic ring is intact. Superior and inferior pubic rami are intact. Sacroiliac joints are well aligned. Electronically signed by: Norma Choi MD (09/20/2019 9:12 AM) [facility] [place]
--- NOTE | 2019-09-20 09:17 | RAD ---
CHEST AP ONLY 09/20/2019 7:38 AM INDICATION: Fall COMPARISON: None available TECHNIQUE: Portable frontal view of the chest is provided. FINDINGS: The cardiomediastinal silhouette is within normal limits. Lungs are clear. There are no significant pleural effusions. There is no pulmonary vascular congestion. No pneumothorax. Linear lucency along the left anterolateral margin of the ninth rib may represent a nondisplaced fracture. IMPRESSION: Linear lucency along the left anterolateral ninth rib may represent a nondisplaced fracture. Correlate with point tenderness. Electronically signed by: Norma Choi MD (09/20/2019 9:14 AM) [facility] [place]
--- NOTE | 2019-09-20 09:20 | RAD ---
PQRS Compliance Statement: One or more of the following individualized dose reduction techniques were utilized for this examination: 1. Automated exposure control 2. Adjustment of the mA and/or kV according to patient size 3. Use of iterative reconstruction technique CT head and cervical spine without contrast 09/20/2019 7:38 AM INDICATION: Fall COMPARISON: None available TECHNIQUE: Multiple axial CT images of the head were obtained from skull base through the vertex without intravenous contrast. Multiple axial CT images of the cervical spine were obtained without intravenous contrast. Coronal and sagittal reformats are provided. FINDINGS: Head: Ventricles, sulci and basal cisterns are prominent compatible with mild/moderate generalized cerebral volume loss. Low-attenuation in the periventricular white matter is suggestive of chronic small vessel ischemic changes. There is no hydrocephalus. Nuno-white matter differentiation is normal. There is no acute intracranial hemorrhage. There is no mass, mass effect or midline shift. Posterior fossa is normal in appearance. Visualized portions of the orbits are normal. Paranasal sinuses are well aerated. Mastoid air cells are well aerated. Scalp and calvaria are normal. Cervical spine: Alignment of the cervical spine is normal. Skull base is intact. Craniocervical junction is normal in appearance. Atlantoaxial articulation is normal. Vertebral body heights are maintained without evidence for acute fracture. Facet joints are within normal limits. At C6-C7, there is a posterior disc osteophyte complex with moderate uncovertebral joint disease resulting in mild bilateral neuroforaminal stenosis and mild spinal canal stenosis. There is no prevertebral soft tissue swelling. Visualized portions of the lung apices are normal without evidence for suspicious pulmonary nodule or infiltrate. IMPRESSION: 1. No acute intracranial hemorrhage. Mild to moderate generalized cerebral volume loss. Low-attenuation in the periventricular white matter is suggestive of chronic small vessel ischemic changes. 2. No acute fracture or malalignment of the cervical spine. Mild cervical spondylosis centered at C6-C7. Electronically signed by: Norma Choi MD (09/20/2019 9:17 AM) [facility] [place]
[2019-09-20 09:26] LABS: CALCIUM 7.3 mg/dL (8.5-10.1); CREATININE 0.6 mg/dL (0.6-1.0); GFR 104.2; POTASSIUM 3.8 mmol/L (3.5-5.1)
[2019-09-20 09:34] LABS: ALBUMIN 2.7 g/dL (3.4-5.0); ALBUMIN/GLOBULIN RATIO 0.9 (1.0-1.7); TOTAL BILIRUBIN 0.2 mg/dL (0.2-1.0); TOTAL PROTEIN 5.7 g/dL (6.4-8.2)
--- NOTE | 2019-09-20 09:51 | RAD ---
PQRS Compliance Statement: One or more of the following individualized dose reduction techniques were utilized for this examination: 1. Automated exposure control 2. Adjustment of the mA and/or kV according to patient size 3. Use of iterative reconstruction technique CT MAXILLOFACIAL WO CONTRAST 09/20/2019 7:38 AM Indication: Fall COMPARISON: None available. TECHNIQUE: Multiple axial CT images of the maxillofacial structures were obtained without intravenous contrast. Coronal and sagittal reformats are provided. FINDINGS: Orbits are normal in appearance. There is no lens dislocation. Globes are spherical and contour. No intraorbital or retro-orbital soft tissue abnormality. There is minimal soft tissue thickening along for head asymmetric to the left. There may be a nondisplaced fracture involving the right nasal bone, although this may be old. Correlate with area of trauma. Paranasal sinuses are well aerated. Nasal septum is predominantly midline. Keke bullosa on the right. Skull base is intact. Pterygoid plates are intact. Maxilla and mandible are intact. IMPRESSION: Subtle possible nondisplaced fracture involving the right nasal bone which may be chronic. Correlate with site of trauma. Electronically signed by: Norma Choi MD (09/20/2019 9:48 AM) [facility] [place]
--- NOTE | 2019-09-20 10:25 | NUR ---
Admission Note with Justification for Admission to [facility] Patient admitted to [facility] for protective oversight for emergency stabilization of acute psychiatric crisis. Pt admitted from: Hospital ER after receiving tx for fall. Mode of arrival: EMS Accompanied By: [facility] Staff Precipitating behaviors that initiated intake and admission: Originally admitted for agitation toward spouse, physician, and staff. Throwing household items, broke a vase and chair, insomnia and uncontrollable eating. Description of failure of out patient attempts at stabilization in previous setting list behavior and medication trials: medication changes Behaviors and assessment findings upon admission: Pt appears sedated. Pt is arousable to name and touch. Mentation is baseline. Received report from Minnie-Pt received 2mg of ativan while in ED. Plan: Admit for protective oversight for adjustment and stabilization of medications, behaviors and mood. Intense treatment regimen including groups, medication adjustments, therapy, consistent regimen for ADL's, self care, and sleep hygiene. Daily monitoring by Inpatient staff, Psychiatry, and Medical Physician.
--- NOTE | 2019-09-20 11:00 | NUR ---
per report from DEVORA Hartman in ED pt has R nasal bone fx, 6 stephen to the top of her head to be removed in 7 to 10 days. [place] vega to the bridge of her nose, nondisplaced L 9th rib fx.
[2019-09-20] MEDS ORDERED: MAG HYDROX/AL HYDROX/SIMETH 30 ML ORAL.SUSP PO PRN (12:00)
[2019-09-20] MEDS ORDERED: MAGNESIUM HYDROXIDE 2,400 MG/30 ML ORAL.SUSP. PO PRN (12:00)
[2019-09-20] MEDS ORDERED: METHYL SALICYLATE/MENTHOL TOPICAL OINTMENT 57GM TUBE. TP PRN (12:00)
[2019-09-20] MEDS ORDERED: GLYC1SUP RC (13:52)
[2019-09-20] MEDS ORDERED: POLY2500 PO (13:52)
[2019-09-20] MEDS ORDERED: MAGN296S4 PO (13:52)
[2019-09-20] MEDS ORDERED: HYDR42CR2 TP (13:52)
[2019-09-20] MEDS ORDERED: METR45CR TP (13:52)
[2019-09-20] MEDS ORDERED: HYDROCORTISONE 1% TOPICAL CREAM 30GM TUBE. TP PRN (14:00)
[2019-09-20] MEDS ORDERED: GLYCERIN ADULT 1 SUPP.RECT. RC PRN (14:00)
[2019-09-20] MEDS ORDERED: MAGNESIUM CITRATE 296 ML SOLUTION. PO PRN (14:00)
[2019-09-20] MEDS ORDERED: traZODone 50 MG TABLET. PO PRN (14:15)
[2019-09-20 15:22] VITALS: BP 126/83
[2019-09-20] MEDS: QUEtiapine 25 MG TABLET. PO SCH (17:00)
[2019-09-20] MEDS: DIVALPROEX 125 MG CAP.SPRINK PO SCH (17:00)
[2019-09-20] MEDS ORDERED: DIVALPROEX 125 MG CAP.SPRINK PO SCH (17:00)
[2019-09-20] MEDS: POTASSIUM CHLORIDE 20 MEQ TABLET.ER. PO SCH (17:00)
[2019-09-20] MEDS: MELATONIN 3 MG TABLET PO SCH (21:00)
[2019-09-20] MEDS: MIRTAZAPINE 15 MG TABLET PO SCH (21:00)
--- NOTE | 2019-09-20 22:00 | NUR ---
Patient is in her room on assumption of care. She is sedated from medications given in the ER before readmission to the unit. Able to be aroused but very drowsy. She does not appear to be in any pain or discomfort. HS meds held. Vital signs remain stable, wounds are clean and show no s/s of infection. Will continue to monitor.
[2019-09-21] MEDS: LEVOTHYROXINE 125 MCG TABLET PO SCH (05:47)
[2019-09-21 06:04] VITALS: BP 130/84
[2019-09-21] MEDS ORDERED: LEVOTHYROXINE 125 MCG TABLET PO SCH (07:30)
[2019-09-21] MEDS: POTASSIUM CHLORIDE 20 MEQ TABLET.ER. PO SCH ×2 (07:50→17:26)
[2019-09-21] MEDS: QUEtiapine 25 MG TABLET. PO SCH ×2 (07:50→17:26)
[2019-09-21] MEDS: LISINOPRIL 20 MG TABLET PO SCH (07:50)
[2019-09-21] MEDS: POLYETHYLENE GLYCOL 3350 17 GM PACKET. PO SCH ×2 (07:51→09:00)
[2019-09-21] MEDS ORDERED: QUEtiapine 25 MG TABLET. PO SCH (09:00)
--- NOTE | 2019-09-21 11:16 | NUR ---
Pt cooperative with her medication, assessment and cares. Pt is confused. Pt is wandering. No agitation, no aggression. Pt does make random noises.
[2019-09-21] MEDS: ACETAMINOPHEN 325 MG TABLET PO PRN (13:02)
[2019-09-21 15:53] VITALS: BP 93/69
[2019-09-21] MEDS: DIVALPROEX 125 MG CAP.SPRINK PO SCH (17:26)
[2019-09-21] MEDS: MELATONIN 3 MG TABLET PO SCH (19:47)
[2019-09-21] MEDS: MIRTAZAPINE 15 MG TABLET PO SCH (19:47)
--- NOTE | 2019-09-21 23:16 | NUR ---
Patient is in the [facility] on assumption of care. She is on isolation precautions pending results of COVID19 swab. She is sitting on a chair. Sleeping but easily arousable. Compliant with assessments and medications crushed in pudding. Assisted in to the quiet room to sleep, covered in weighted blanket. Patient remains sleeping comfortably at this time.
[2019-09-22] MEDS: LEVOTHYROXINE 125 MCG TABLET PO SCH (04:59)
[2019-09-22 05:56] VITALS: BP 126/80
[2019-09-22] MEDS: ACETAMINOPHEN 325 MG TABLET PO PRN ×2 (05:59→20:43)
--- NOTE | 2019-09-22 06:01 | NUR ---
Patient woke up at 0500. She was cleaned, dressed for the day and assisted to a chair in the [facility], sitting with a staff member. She was incontinent of a large amount of soft stool. Assisted to the bathroom with staff assist of 2. When she was returned to the chair. She began babbling, saying "I hurt, this is too much, I'm scared, scared." Medicated with PRN Tylenol at 0600, pending effect. Patient remains in hallway accompanied by a staff member for safety. Will continue to monitor.
[2019-09-22] MEDS: POLYETHYLENE GLYCOL 3350 17 GM PACKET. PO SCH (09:00)
[2019-09-22] MEDS: POTASSIUM CHLORIDE 20 MEQ TABLET.ER. PO SCH ×2 (09:16→16:52)
[2019-09-22] MEDS: LISINOPRIL 20 MG TABLET PO SCH (09:17)
[2019-09-22] MEDS: QUEtiapine 25 MG TABLET. PO SCH ×2 (09:17→16:53)
--- NOTE | 2019-09-22 12:09 | NUR ---
Pt cooperative with her medication, assessment and cares. Pt is confused. No agitation, no aggression. Pt does make random noises. Pt was able to some sentences together today.
[2019-09-22 16:07] VITALS: BP 130/66
[2019-09-22] MEDS: DIVALPROEX 125 MG CAP.SPRINK PO SCH (16:52)
[2019-09-22] MEDS: MIRTAZAPINE 15 MG TABLET PO SCH (20:41)
[2019-09-22] MEDS: MELATONIN 3 MG TABLET PO SCH (20:42)
--- NOTE | 2019-09-22 22:51 | NUR ---
This evening pt walked quietly in hallway she took meds crushed in pudding. Pt not able to verbalize if she is in pain or not but appearance of injuries, scalp and facial lacerations, swollen lip, facial abrasions look like they would be uncomfortable. PRN tylenol given before she went to bed. No behaviors tonight.
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
--- NOTE | 2019-09-23 04:30 | PN ---
DATE: 09/22/2019 PSYCHIATRIC PROGRESS NOTE This note covers elements not covered in my initial note of 09/22/2019. SUBJECTIVE: The patient was discussed with DEVORA Boudreaux and then I had Telehealth audiovisual rounds with the patient in the evening. The patient slept 7-3/4 hours previous night. She was up at night, but quite appropriate, woke up at 5:00 a.m. this morning, confused, disorganized, but making a little more sense in sentences, calling out for Eric, her . She was unable to recognize him in the past. REVIEW OF SYSTEMS: No CV, , pulmonary, eye, ENT system symptoms on review. Reliability poor. MENTAL STATUS EXAMINATION: Oriented to herself. Insight, judgment, recent and remote memory, attention, concentration, fund of knowledge poor, consistent with her diagnoses. IMPRESSION: Major neurocognitive disorder, Alzheimer, vascular with delusion, depression, behavioral disturbance; anxiety disorder, unspecified; impulse control disorder, unspecified. PLAN: Continue psychotropics from initial note. Adjust further as clinically indicated. MAN Lance CALDERÓN MD DR: JOSH/corrie JOB#: [id number] / [id number]
[2019-09-23] MEDS: LEVOTHYROXINE 125 MCG TABLET PO SCH (06:04)
[2019-09-23] MEDS: ACETAMINOPHEN 325 MG TABLET PO PRN ×2 (06:04→13:26)
[2019-09-23 06:21] VITALS: BP 112/70
[2019-09-23] MEDS: POLYETHYLENE GLYCOL 3350 17 GM PACKET. PO SCH (07:42)
--- NOTE | 2019-09-23 07:43 | NUR ---
patient had incontinent loose stool. Miralax held.
--- NOTE | 2019-09-23 07:45 | PDOC ---
Exam Note: Steve Note: (Dictation #[id number]). Late entry for 09/21/2019. Please also refer to the separate dictated note~for this date of service dictated separately.~Patient seen individually. Discussed the patient with Nursing staff reviewed the chart.~Reviewed interim history and current functioning. Reviewed vital signs,~Labs/ Radiology~and current medications noted below. Continue current treatment with the changes noted in the dictated addendum note Assessment: Vital Signs/I&O: Vital Signs Date Time Temp Pulse Resp B/P (MAP) Pulse Ox O2 Delivery O2 Flow Rate FiO2 09/23/19 06:21 98.1 80 16 112/70 (84) 96 Room Air I & O 09/22/19 09/22/19 09/23/19 15:00 23:00 07:00 Intake Total 480 ml 240 ml Balance 480 ml 240 ml Current Medications: I have reviewed the current psychotropics carefully including drug interactions. Risk benefit ratio favors no change other than as noted in my dictated progress note. Diagnosis: Problems: (1) Major neurocognitive disorder due to Alzheimer's disease, with behavioral disturbance (2) Anxiety disorder (3) Dementia in Alzheimer's disease with delusions (4) Dementia in Alzheimer's disease with depression (5) Dementia, vascular, with delusions (6) Dementia, vascular, with depression (7) Impulse control disorder MICHELLE CALDERÓN MD Sep 23, 2019 07:45
--- NOTE | 2019-09-23 07:59 | PDOC ---
Exam Note: Steve Note: (Dictation #[id number]). Late entry for 09/22/2019. Please also refer to the separate dictated note~for this date of service dictated separately.~Patient seen individually. Discussed the patient with Nursing staff reviewed the chart.~Reviewed interim history and current functioning. Reviewed vital signs,~Labs/ Radiology~and current medications noted below. Continue current treatment with the changes noted in the dictated addendum note Assessment: Vital Signs/I&O: Vital Signs Date Time Temp Pulse Resp B/P (MAP) Pulse Ox O2 Delivery O2 Flow Rate FiO2 09/23/19 06:21 98.1 80 16 112/70 (84) 96 Room Air I & O 09/22/19 09/22/19 09/23/19 15:00 23:00 07:00 Intake Total 480 ml 240 ml Balance 480 ml 240 ml Current Medications: I have reviewed the current psychotropics carefully including drug interactions. Risk benefit ratio favors no change other than as noted in my dictated progress note. Diagnosis: Problems: (1) Major neurocognitive disorder due to Alzheimer's disease, with behavioral disturbance (2) Anxiety disorder (3) Dementia in Alzheimer's disease with delusions (4) Dementia in Alzheimer's disease with depression (5) Dementia, vascular, with delusions (6) Dementia, vascular, with depression (7) Impulse control disorder MICHELLE CALDERÓN MD Sep 23, 2019 07:59
[2019-09-23] MEDS: POTASSIUM CHLORIDE 20 MEQ TABLET.ER. PO SCH ×2 (08:06→17:38)
[2019-09-23] MEDS: QUEtiapine 25 MG TABLET. PO SCH ×2 (08:06→17:38)
[2019-09-23] MEDS: LISINOPRIL 20 MG TABLET PO SCH (08:07)
--- NOTE | 2019-09-23 11:37 | NUR ---
Patient sitting calmly in chair near the nurses station in the [facility]. She has a doll with her but is not paying attention to it. Patient is unable to say her own name but will look at nurse if name is called. She is compliant with medications given crushed in vanilla pudding. Patient needs to be encouraged to drink fluids but will readily drink when cup is put to her lips. She was cooperative with assessment. Patient has stephen on top of head and facial bruising from a fall on 09/19. Patient is unable to express pain but scored 0 on the PAINAD scale.
[2019-09-23] MEDS ORDERED: metroNIDAZOLE 0.75% TOPICAL 1 APP TUBE TP PRN ×2 (11:45→13:30)
--- NOTE | 2019-09-23 13:26 | NUR ---
patient is picking at her stephen on her scalp and said "hurts". PRN tylenol given for pain, PRN zyprexa given for agitation about stephen on head. Patient sitting in hallway on chair in view of nurses station. Will continue to monitor.
[2019-09-23 15:45] VITALS: BP 118/74
[2019-09-23] MEDS: DIVALPROEX 125 MG CAP.SPRINK PO SCH (17:37)
[2019-09-23] MEDS: MELATONIN 3 MG TABLET PO SCH (20:57)
[2019-09-23] MEDS: MIRTAZAPINE 15 MG TABLET PO SCH (20:57)
--- NOTE | 2019-09-23 21:58 | PDOC ---
Exam Note: Steve Note: Please also refer to the separate dictated note~for this date of service dictated separately.~Patient seen individually. Discussed the patient with Nursing staff reviewed the chart.~Reviewed interim history and current functioning. Reviewed vital signs,~Labs/ Radiology~and current medications noted below. Continue current treatment with the changes noted in the dictated addendum note Assessment: Vital Signs/I&O: Vital Signs Date Time Temp Pulse Resp B/P (MAP) Pulse Ox O2 Delivery O2 Flow Rate FiO2 09/23/19 15:45 97.9 88 16 118/74 (89) 98 09/23/19 06:21 Room Air I & O 09/22/19 09/22/19 09/23/19 15:00 23:00 07:00 Intake Total 480 ml 240 ml Balance 480 ml 240 ml Current Medications: I have reviewed the current psychotropics carefully including drug interactions. Risk benefit ratio favors no change other than as noted in my dictated progress note. Diagnosis: Problems: (1) Major neurocognitive disorder due to Alzheimer's disease, with behavioral disturbance (2) Anxiety disorder (3) Dementia in Alzheimer's disease with delusions (4) Dementia in Alzheimer's disease with depression (5) Dementia, vascular, with delusions (6) Dementia, vascular, with depression (7) Impulse control disorder MICHELLE CALDERÓN MD Sep 23, 2019 21:58
--- NOTE | 2019-09-24 01:56 | NUR ---
This shift pt has been drowsy and cooperative. Meds were given crushed in applesauce. She has had no behaviors
[2019-09-24 05:43] VITALS: BP 128/86
[2019-09-24] MEDS: LEVOTHYROXINE 125 MCG TABLET PO SCH (06:14)
[2019-09-24 07:58] LABS: BASO % 1 % (0-3); EOS # 0.1 x10^3/uL (0.0-0.7); EOS % 1 % (0-3); HEMATOCRIT 41.8 % (36.0-47.0); HEMOGLOBIN 13.6 g/dL (12.0-15.5); LYMPH # 0.7 x10^3/uL (1.0-4.8); LYMPH % 13 % (24-48); MEAN CORPUSCULAR HEMOGLOBIN 30 pg (25-35); MEAN CORPUSCULAR HGB CONC 33 g/dL (31-37); MEAN CORPUSCULAR VOLUME 91 fL (79-100); MONO # 0.5 x10^3/uL (0.0-1.1); MONO % 9 % (0-9); NEUT # 4.4 x10^3uL (1.8-7.7); NEUT % 77 % (31-73); PLATELET COUNT 159 x10^3/uL (140-400); RED CELL DISTRIBUTION WIDTH 14.4 % (11.5-14.5); WHITE BLOOD COUNT 5.7 x10^3/uL (4.0-11.0)
[2019-09-24 08:15] LABS: ALBUMIN 3.2 g/dL (3.4-5.0); ALBUMIN/GLOBULIN RATIO 0.9 (1.0-1.7); ALK PHOS 110 U/L (46-116); ALT (SGPT) 31 U/L (14-59); ANION GAP 8 (6-14); AST (SGOT) 23 U/L (15-37); BLOOD UREA NITROGEN 15 mg/dL (7-20); BUN/CREATININE RATIO 21 (6-20); CALCIUM 8.7 mg/dL (8.5-10.1); CARBON DIOXIDE 28 mmol/L (21-32); CHLORIDE 106 mmol/L (98-107); CREATININE 0.7 mg/dL (0.6-1.0); GFR 87.2; GLUCOSE 93 mg/dL (70-99); SODIUM 142 mmol/L (136-145); TOTAL BILIRUBIN 0.3 mg/dL (0.2-1.0); TOTAL PROTEIN 6.9 g/dL (6.4-8.2)
[2019-09-24 08:17] LABS: VAL ACID 33 mcg/mL (50-100)
[2019-09-24] MEDS: QUEtiapine 25 MG TABLET. PO SCH ×2 (08:29→16:45)
[2019-09-24] MEDS: LISINOPRIL 20 MG TABLET PO SCH (08:29)
[2019-09-24] MEDS: POTASSIUM CHLORIDE 20 MEQ TABLET.ER. PO SCH ×2 (08:29→16:45)
[2019-09-24] MEDS: POLYETHYLENE GLYCOL 3350 17 GM PACKET. PO SCH (08:30)
[2019-09-24 15:34] VITALS: BP 138/75
--- NOTE | 2019-09-24 16:05 | NUR ---
Patient has spent the majority of the shift sitting on a chair in the [facility] using sing song voice and musical vocal patterns while staring at something next to her. Occasionally she would turn her head like she was watching a moving object. Patient has made several attempts to stand up, but always sits down after getting about detention out of the chair. She has multiple bruises, small abrasions, and lacerations to face and upper torso. She has shown a good appetite today, though she did not eat the afternoon snack provided. Will continue to monitor.
[2019-09-24] MEDS: DIVALPROEX 125 MG CAP.SPRINK PO SCH (16:45)
[2019-09-24] MEDS: MELATONIN 3 MG TABLET PO SCH (20:18)
[2019-09-24] MEDS: MIRTAZAPINE 15 MG TABLET PO SCH (20:18)
--- NOTE | 2019-09-24 22:50 | PDOC ---
Exam Note: Steve Note: S/O: This note is a late entry for DOS 09/23/2019 covers elements not covered in my initial note. This is an addendum to psychiatric progress note for DOS 09/23/2019. Discussed the patient with nursing staff, reviewed the chart. The patient was seen on audio-visual rounds in the evening with Willow LOZOYA. Meka lucero report was with Jennifer LOZOYA. Slept 7-1/4 hours previous night. She was picking on her face in the afternoon around 1.30 and on the stephen on her head. Did receive Zyprexa p.r.n. This seems to help her significantly. ROS: No CV, , Pulmonary, Eye, ENT system symptoms on review. Liability poor. MSE: Oriented to herself. Insight and judgment, recent and remote memory, attention and concentration, fund of knowledge is poor consistent with her diagnosis. Labs: Reviewed. Imp: No change from initial note. Plan: No change from initial note. Assessment: Vital Signs/I&O: Vital Signs Date Time Temp Pulse Resp B/P (MAP) Pulse Ox O2 Delivery O2 Flow Rate FiO2 09/24/19 15:34 98.5 82 20 138/75 (96) 98 09/23/19 06:21 Room Air I & O 09/23/19 09/23/19 09/24/19 15:00 23:00 07:00 Intake Total 600 ml 360 ml 120 ml Balance 600 ml 360 ml 120 ml Labs: Laboratory Tests Test 09/24/19 07:49 White Blood Count 5.7 x10^3/uL (4.0-11.0) Red Blood Count 4.60 x10^6/uL (3.50-5.40) Hemoglobin 13.6 g/dL (12.0-15.5) Hematocrit 41.8 % (36.0-47.0) Mean Corpuscular Volume 91 fL (79-100) Mean Corpuscular Hemoglobin 30 pg (25-35) Mean Corpuscular Hemoglobin Concent 33 g/dL (31-37) Red Cell Distribution Width 14.4 % (11.5-14.5) Platelet Count 159 x10^3/uL (140-400) Neutrophils (%) (Auto) 77 % (31-73) H Lymphocytes (%) (Auto) 13 % (24-48) L Monocytes (%) (Auto) 9 % (0-9) Eosinophils (%) (Auto) 1 % (0-3) Basophils (%) (Auto) 1 % (0-3) Neutrophils # (Auto) 4.4 x10^3uL (1.8-7.7) Lymphocytes # (Auto) 0.7 x10^3/uL (1.0-4.8) L Monocytes # (Auto) 0.5 x10^3/uL (0.0-1.1) Eosinophils # (Auto) 0.1 x10^3/uL (0.0-0.7) Basophils # (Auto) 0.0 x10^3/uL (0.0-0.2) Sodium Level 142 mmol/L (136-145) Potassium Level 4.0 mmol/L (3.5-5.1) Chloride Level 106 mmol/L (98-107) Carbon Dioxide Level 28 mmol/L (21-32) Anion Gap 8 (6-14) Blood Urea Nitrogen 15 mg/dL (7-20) Creatinine 0.7 mg/dL (0.6-1.0) Estimated GFR (Cockcroft-Gault) 87.2 BUN/Creatinine Ratio 21 (6-20) H Glucose Level 93 mg/dL (70-99) Calcium Level 8.7 mg/dL (8.5-10.1) Total Bilirubin 0.3 mg/dL (0.2-1.0) Aspartate Amino Transferase (AST) 23 U/L (15-37) Alanine Aminotransferase (ALT) 31 U/L (14-59) Alkaline Phosphatase 110 U/L (46-116) Total Protein 6.9 g/dL (6.4-8.2) Albumin 3.2 g/dL (3.4-5.0) L Albumin/Globulin Ratio 0.9 (1.0-1.7) L Valproic Acid Level 33 mcg/mL (50-100) L Valproic Acid Last Dose Date 09/23/19 Valproic Acid Last Dose Time 1700 Current Medications: I have reviewed the current psychotropics carefully including drug interactions. Risk benefit ratio favors no change other than as noted in my dictated progress note. Diagnosis: Problems: (1) Major neurocognitive disorder due to Alzheimer's disease, with behavioral disturbance (2) Anxiety disorder (3) Dementia in Alzheimer's disease with delusions (4) Dementia in Alzheimer's disease with depression (5) Dementia, vascular, with delusions (6) Dementia, vascular, with depression (7) Impulse control disorder MICHELLE CALDERÓN MD Sep 24, 2019 22:50
--- NOTE | 2019-09-24 23:01 | PDOC ---
Exam Note: Steve Note: Please also refer to the separate dictated note~for this date of service dictated separately.~Patient seen individually. Discussed the patient with Nursing staff reviewed the chart.~Reviewed interim history and current functioning. Reviewed vital signs,~Labs/ Radiology~and current medications noted below. Continue current treatment with the changes noted in the dictated addendum note Assessment: Vital Signs/I&O: Vital Signs Date Time Temp Pulse Resp B/P (MAP) Pulse Ox O2 Delivery O2 Flow Rate FiO2 09/24/19 15:34 98.5 82 20 138/75 (96) 98 09/23/19 06:21 Room Air I & O 09/23/19 09/23/19 09/24/19 14:59 22:59 06:59 Intake Total 600 ml 360 ml 120 ml Balance 600 ml 360 ml 120 ml Labs: Laboratory Tests Test 09/24/19 07:49 White Blood Count 5.7 x10^3/uL (4.0-11.0) Red Blood Count 4.60 x10^6/uL (3.50-5.40) Hemoglobin 13.6 g/dL (12.0-15.5) Hematocrit 41.8 % (36.0-47.0) Mean Corpuscular Volume 91 fL (79-100) Mean Corpuscular Hemoglobin 30 pg (25-35) Mean Corpuscular Hemoglobin Concent 33 g/dL (31-37) Red Cell Distribution Width 14.4 % (11.5-14.5) Platelet Count 159 x10^3/uL (140-400) Neutrophils (%) (Auto) 77 % (31-73) H Lymphocytes (%) (Auto) 13 % (24-48) L Monocytes (%) (Auto) 9 % (0-9) Eosinophils (%) (Auto) 1 % (0-3) Basophils (%) (Auto) 1 % (0-3) Neutrophils # (Auto) 4.4 x10^3uL (1.8-7.7) Lymphocytes # (Auto) 0.7 x10^3/uL (1.0-4.8) L Monocytes # (Auto) 0.5 x10^3/uL (0.0-1.1) Eosinophils # (Auto) 0.1 x10^3/uL (0.0-0.7) Basophils # (Auto) 0.0 x10^3/uL (0.0-0.2) Sodium Level 142 mmol/L (136-145) Potassium Level 4.0 mmol/L (3.5-5.1) Chloride Level 106 mmol/L (98-107) Carbon Dioxide Level 28 mmol/L (21-32) Anion Gap 8 (6-14) Blood Urea Nitrogen 15 mg/dL (7-20) Creatinine 0.7 mg/dL (0.6-1.0) Estimated GFR (Cockcroft-Gault) 87.2 BUN/Creatinine Ratio 21 (6-20) H Glucose Level 93 mg/dL (70-99) Calcium Level 8.7 mg/dL (8.5-10.1) Total Bilirubin 0.3 mg/dL (0.2-1.0) Aspartate Amino Transferase (AST) 23 U/L (15-37) Alanine Aminotransferase (ALT) 31 U/L (14-59) Alkaline Phosphatase 110 U/L (46-116) Total Protein 6.9 g/dL (6.4-8.2) Albumin 3.2 g/dL (3.4-5.0) L Albumin/Globulin Ratio 0.9 (1.0-1.7) L Valproic Acid Level 33 mcg/mL (50-100) L Valproic Acid Last Dose Date 09/23/19 Valproic Acid Last Dose Time 1700 Current Medications: I have reviewed the current psychotropics carefully including drug interactions. Risk benefit ratio favors no change other than as noted in my dictated progress note. Diagnosis: Problems: (1) Major neurocognitive disorder due to Alzheimer's disease, with behavioral disturbance (2) Anxiety disorder (3) Major neurocognitive disorder, due to vascular disease, with behavioral disturbance, mild (4) Dementia in Alzheimer's disease with delusions (5) Dementia in Alzheimer's disease with depression (6) Dementia, vascular, with delusions (7) Dementia, vascular, with depression (8) Impulse control disorder MICHELLE CALDERÓN MD Sep 24, 2019 23:01
--- NOTE | 2019-09-25 00:57 | NUR ---
Last evening pt sat in hallway mainly quietly looking around, occasionally she would start to stand then sit back down. A few times she would call out as if talking to something not apparent to staff. Meds were taken crushed in applesauce then she went to bed without difficulty and has been sleeping well.
[2019-09-25 06:16] VITALS: BP 111/67
[2019-09-25] MEDS: LEVOTHYROXINE 125 MCG TABLET PO SCH (06:31)
[2019-09-25] MEDS: POTASSIUM CHLORIDE 20 MEQ TABLET.ER. PO SCH ×2 (08:11→16:56)
[2019-09-25] MEDS: LISINOPRIL 20 MG TABLET PO SCH (08:11)
[2019-09-25] MEDS: POLYETHYLENE GLYCOL 3350 17 GM PACKET. PO SCH (08:11)
[2019-09-25] MEDS: QUEtiapine 25 MG TABLET. PO SCH ×2 (08:11→16:56)
--- NOTE | 2019-09-25 12:01 | NUR ---
Updated COVID-19 QUARANTINE ACTIVITY THERAPY NOTE Due to exposure of a positive Covid-19 case, the unit was ordered to have no group activities starting 08/30/2019. Additional test results are pending at this time; therefore, formal groups remain suspended. Quarantine doorway/ social distancing activities began 09/23/2019. Activities consist of light stretching to music and cognitive stimulation. Each afternoon, a cart with magazines, puzzles, and trinkets (that patients can keep) are offered along with a treat/ snack to enjoy. Quarantine set to on 10/01/2019.
--- NOTE | 2019-09-25 12:12 | TX PLAN ---
Interdisciplinary Tx Plan Admission Information Sep 20, 2019 at 10:45 Legal Status (on Admission): Voluntary, DPOA DPOA/Guardian Name: Eric Bagley Contact Other Contact Name: Julissa Kaaure, [facility] retail coordinator Other Contact Verified Code Status: Full Code Allergies: Coded Allergies: codeine (Verified Allergy, Unknown, 08/14/19) Diagnoses Primary Diagnosis: Major neurocognitive D/O, vascular alzheimers with delusions, depression, BD; Anxiety d/o unspecified, Impulse control d/o Reasons for Admission: Aggressive, Agitated, Sig. Change Sleep, Combative, Confusion/Disoriented, Poor impulse control Problem in Patient's Words: Mandi has severe cognitive impairment and is not able to provide history or respond to questions asked of her. Per spouse and previoous facility, Mandi's behavior had become aggressive, combativie, and unmanagable at the care facility. Problems Active Problems: Periods of restlessness Poor impulse control Poor safety awareness Vision impairment Advanced memory impairment Inactive Problems: Medication compliant Pt Strengths/Limitations Ability for Corder: Poor Cognitive Functioning/Ability: Poor Communication Skills/Ability: Poor Financial Resources: Good Insight/Judgement: Poor Intellectual Ability: Fair Physical Health: Fair Social Skills: Poor Stability in Family: Good Verbal Skills: Poor Discharge Criteria Discharge Criteria: Adequate arrangements @DC, Improved behavior Preliminary Discharge Plan Preliminary DC Plan: Memory Care Other Arrangements: Mandi has been accepted at [facility] upon d/c from [facility]. Special Precautions Special Precautions: Agitation/Assault Fall Risk: High Initial D/C Plan [facility] [place] Identified Discharge Needs: Follow up with PCP and out patient psychaitry if available. Additional Needs Will need written prescriptions for new medications Currently Utilized Resources Currently Utilized Resources/P: Will utilize house physician and house psychiatrist at [facility] Identified Problems/Hx/Goals Objectives/Short-Term Goals Short Term Goals: Dec. Aggression, Dec. Outbursts, Medication Stabilization Short Term Goals in Patient's: Per spouse/POA, "Hoping she gets some peace." Interventions/Frequency Staff Interventions/Frequency&: Nursing provides routine safety checks and support with all adl's. Psychiatrist is completing virtual visits daily. 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 Social: Mandi enjoys being a Mom, cooking, reading mysteries, and likes dogs. Education: Nicolasa graduated high school and obtained a bachelors degree in health science from [place], [place]. Community Follow-up PCP Out patient psychiatry if available Mandi sees neurology at the [facility] Treatment Plan Explained Patient/Youth Worker had this treatment plan explained to him/her as indicated by the signature below and has been given the opportunity to ask questions and make suggestions: Date: Patient/Youth Worker Signature: NICOHL EMERY Sep 25, 2019 12:12
--- NOTE | 2019-09-25 12:59 | NUR ---
CANDIDA faxed current notes, medication list, and labs to Julissa, director of medical staff services at [facility], for review. CANDIDA completed concurrent review with Gale at [facility]. Gale will discuss with [facility] physician and let this worker know about Mandi's coverage. Mandi is currently covered thru 09/27/19.
[2019-09-25 15:39] VITALS: BP 175/77
[2019-09-25] MEDS: DIVALPROEX 125 MG CAP.SPRINK PO SCH (16:56)
--- NOTE | 2019-09-25 17:41 | NUR ---
Patient has spent most of this shift sitting in a chair in the [facility], using sing-song voice and musical vocal patterns at times while staring at something next to her. Occasionally she would turn her head like she was watching a moving object though nothing was there. Patient has made several attempts to stand up, but always sits down after getting about long term out of the chair. She has multiple bruises, small abrasions, and lacerations to face and upper torso. She has shown a good appetite today, though has not been drinking as much. Will continue to monitor.
[2019-09-25] MEDS: MIRTAZAPINE 15 MG TABLET PO SCH (19:55)
[2019-09-25] MEDS: MELATONIN 3 MG TABLET PO SCH (19:55)
--- NOTE | 2019-09-25 21:27 | NUR ---
Nursing Note The patient was located in the hallway near the [facility]. The patient was calm and cooperative with her medication. The patient took her medication crushed in pudding. The patient was non verbal but pleasant during interactions. The patient is currently in the hallway sitting in a chair.
--- NOTE | 2019-09-25 22:35 | PDOC ---
Exam Note: Steve Note: S/O: This note is a late entry for DOS 09/24/2019 covers elements not covered in my initial note. Discussed the patient with nursing staff, reviewed the chart. The patient was seen on audio-visual rounds in the evening with Samy RN. Nursing report was with Samy LOZOYA. Slept reasonably. ROS: No CV, , Pulmonary, Eye, ENT system symptoms on review. Reliability poor. MSE: Oriented to herself. Insight and judgment, recent and remote memory, attention and concentration, fund of knowledge is poor consistent with her diagnosis. She tends to sing song noises had decent day per nursing report somewhat repetitive in her speech. Labs: Reviewed. Imp: No change from initial note. Plan: No change from initial note. Assessment: Vital Signs/I&O: Vital Signs Date Time Temp Pulse Resp B/P (MAP) Pulse Ox O2 Delivery O2 Flow Rate FiO2 09/25/19 15:39 98.4 101 20 175/77 (109) 98 Room Air I & O 09/24/19 09/24/19 09/25/19 15:00 23:00 07:00 Intake Total 1080 ml 120 ml Balance 1080 ml 120 ml Current Medications: I have reviewed the current psychotropics carefully including drug interactions. Risk benefit ratio favors no change other than as noted in my dictated progress note. Diagnosis: Problems: (1) Major neurocognitive disorder due to Alzheimer's disease, with behavioral disturbance (2) Anxiety disorder (3) Dementia in Alzheimer's disease with delusions (4) Dementia in Alzheimer's disease with depression (5) Dementia, vascular, with delusions (6) Dementia, vascular, with depression (7) Impulse control disorder MICHELLE CALDERÓN MD Sep 25, 2019 22:35
--- NOTE | 2019-09-25 22:36 | PDOC ---
Exam Note: Steve Note: Please also refer to the separate dictated note~for this date of service dictated separately.~Patient seen individually. Discussed the patient with Nursing staff reviewed the chart.~Reviewed interim history and current functioning. Reviewed vital signs,~Labs/ Radiology~and current medications noted below. Continue current treatment with the changes noted in the dictated addendum note Assessment: Vital Signs/I&O: Vital Signs Date Time Temp Pulse Resp B/P (MAP) Pulse Ox O2 Delivery O2 Flow Rate FiO2 09/25/19 15:39 98.4 101 20 175/77 (109) 98 Room Air I & O 09/24/19 09/24/19 09/25/19 15:00 23:00 07:00 Intake Total 1080 ml 120 ml Balance 1080 ml 120 ml Current Medications: I have reviewed the current psychotropics carefully including drug interactions. Risk benefit ratio favors no change other than as noted in my dictated progress note. Diagnosis: Problems: (1) Major neurocognitive disorder due to Alzheimer's disease, with behavioral disturbance (2) Anxiety disorder (3) Dementia in Alzheimer's disease with delusions (4) Dementia in Alzheimer's disease with depression (5) Dementia, vascular, with delusions (6) Dementia, vascular, with depression (7) Impulse control disorder MICHELLE CALDERÓN MD Sep 25, 2019 22:36
[2019-09-26] MEDS: LEVOTHYROXINE 125 MCG TABLET PO SCH (05:27)
[2019-09-26 06:35] VITALS: BP 166/74
[2019-09-26] MEDS: QUEtiapine 25 MG TABLET. PO SCH ×2 (08:41→16:39)
[2019-09-26] MEDS: LISINOPRIL 20 MG TABLET PO SCH (08:42)
[2019-09-26] MEDS: POTASSIUM CHLORIDE 20 MEQ TABLET.ER. PO SCH ×2 (08:42→16:39)
[2019-09-26] MEDS: POLYETHYLENE GLYCOL 3350 17 GM PACKET. PO SCH (08:42)
--- NOTE | 2019-09-26 10:26 | NUR ---
Received voice message from Gale at [facility] [place] indicating that Mandi has been approved thru 10/04/19, next review date will be 10/03/19. CANDIDA called Eric, spouse/POA, to update on coverage. Eric shared that [facility] is ready to receive Mandi and that she will be quarantined for 14 days when she is admitted there. [facility] has made a four bed quarantine unit to accept new admissions and residents that are returning from hospitalizations. CANDIDA will follow.
--- NOTE | 2019-09-26 12:11 | NUR ---
CANDIDA confirmed with Julissa, owner spa director at [facility], that they are prepared to accept Mandi and will do a 14 day quarantine once Mandi arrives there. [facility] prefers to have an additional Covid 19 swab completed to confirm negative results. Call placed to Eric, spouse/POA, who is in agreement with plan for Mandi to transfer to [facility] on 09/30/19. Eric will provide transport. Mandi will need written prescriptions for Depakote, Seroquel, Remeron, Trazodone, and Potassium. Dr. Gamaliel Yuosif will be PCP and Dr. Khushi Cooper will be psychiatrist that follow at [facility]. CANDIDA will touch base with all parties on 09/29/19 to prepare and coordinate for upcoming transfer.
[2019-09-26 16:00] VITALS: BP 149/80
[2019-09-26] MEDS: DIVALPROEX 125 MG CAP.SPRINK PO SCH (16:39)
--- NOTE | 2019-09-26 17:03 | NUR ---
Patient has been restlessly sitting on a chair in the [facility] all shift. She has been talking repeatedly in a sing song voice and occasionally using musical vocal patterns while staring at something next to her. Occasionally she would turn her head like she was watching a moving object. Patient makes repeated attempts to stand up, but always sits down after getting about fdc up to the point her hands would leave the chair. She has multiple bruises, small abrasions, and lacerations to face and upper torso; bruising and swelling to the face are reduced. She has not been eating or drinking as well as normal for her. Will continue to monitor.
[2019-09-26] MEDS: MELATONIN 3 MG TABLET PO SCH (20:19)
[2019-09-26] MEDS: MIRTAZAPINE 15 MG TABLET PO SCH (20:19)
--- NOTE | 2019-09-26 22:02 | PDOC ---
Exam Note: Steve Note: Please also refer to the separate dictated note~for this date of service dictated separately.~Patient seen individually. Discussed the patient with Nursing staff reviewed the chart.~Reviewed interim history and current functioning. Reviewed vital signs,~Labs/ Radiology~and current medications noted below. Continue current treatment with the changes noted in the dictated addendum note Assessment: Vital Signs/I&O: Vital Signs Date Time Temp Pulse Resp B/P (MAP) Pulse Ox O2 Delivery O2 Flow Rate FiO2 09/26/19 16:00 97.3 79 20 149/80 (103) 96 09/26/19 06:35 Room Air I & O 09/25/19 09/25/19 09/26/19 15:00 23:00 07:00 Intake Total 480 ml 120 ml Balance 480 ml 120 ml Current Medications: Meds: Current Medications Medications (Trade) Dose Ordered Sig/Noel Route PRN Reason Start Time Stop Time Status Last Admin Dose Admin Quetiapine Fumarate (SEROquel) 12.5 mg DAILY PO 09/26/19 09:00 09/26/19 08:41 I have reviewed the current psychotropics carefully including drug interactions. Risk benefit ratio favors no change other than as noted in my dictated progress note. Diagnosis: Problems: (1) Major neurocognitive disorder due to Alzheimer's disease, with behavioral disturbance (2) Anxiety disorder (3) Major neurocognitive disorder, due to vascular disease, with behavioral disturbance, mild (4) Dementia in Alzheimer's disease with delusions (5) Dementia in Alzheimer's disease with depression (6) Dementia, vascular, with delusions (7) Dementia, vascular, with depression (8) Impulse control disorder MICHELLE CALDERÓN MD Sep 26, 2019 22:02
--- NOTE | 2019-09-26 23:26 | NUR ---
Nursing Note The patient was located in the hallway near the [facility]. The patient was calm and cooperative with her medication. The patient took her medication crushed in pudding. The patient was non verbal but pleasant during interactions. The patient is currently in the quiet room sleeping.
[2019-09-27] MEDS: LEVOTHYROXINE 125 MCG TABLET PO SCH (05:52)
[2019-09-27] MEDS: ACETAMINOPHEN 325 MG TABLET PO PRN (05:53)
[2019-09-27 06:05] VITALS: BP 111/61
[2019-09-27] MEDS: POLYETHYLENE GLYCOL 3350 17 GM PACKET. PO SCH (08:42)
[2019-09-27] MEDS: POTASSIUM CHLORIDE 20 MEQ TABLET.ER. PO SCH ×2 (08:42→17:50)
[2019-09-27] MEDS: LISINOPRIL 20 MG TABLET PO SCH (08:42)
[2019-09-27] MEDS: QUEtiapine 25 MG TABLET. PO SCH ×2 (08:43→17:50)
--- NOTE | 2019-09-27 08:47 | PDOC ---
Exam Note: Steve Note: S/O: This note is a late entry for DOS 09/25/2019 covers elements not covered in my initial note. Treatment team meeting was done in the morning with Varsha Carrizales, and Angie Ramirez along with Jennifer LOZOYA and Karuna from [facility]. Discussed the patient with nursing staff, reviewed the chart. The patient was seen on audio-visual rounds in the evening with Samy LOZOYA. Slept 8 hours previous night. Appetite is 75%. She has been appropriate, wandering the hallway, redirectable, not aggressive. ROS: No CV, , Pulmonary, Eye, ENT system symptoms on review. MSE: Oriented to herself. Insight and judgment, recent and remote memory, attention and concentration, fund of knowledge is poor consistent with her diagnosis. She appears less psychotic, yelling is better. Labs: Reviewed. Imp: Major neurocognitive disorder Alzheimer vascular with delusion, depression, behavioral disturbance. Anxiety disorder unspecified. Impulse control disorder unspecified. Plan: No change from initial note. Assessment: Vital Signs/I&O: Vital Signs Date Time Temp Pulse Resp B/P (MAP) Pulse Ox O2 Delivery O2 Flow Rate FiO2 09/27/19 06:05 97.6 72 14 111/61 (78) 95 09/26/19 06:35 Room Air I & O 09/26/19 09/26/19 09/27/19 15:00 23:00 07:00 Intake Total 720 ml 360 ml Balance 720 ml 360 ml Current Medications: Meds: Current Medications Medications (Trade) Dose Ordered Sig/Noel Route PRN Reason Start Time Stop Time Status Last Admin Dose Admin Quetiapine Fumarate (SEROquel) 12.5 mg DAILY PO 09/26/19 09:00 09/26/19 08:41 I have reviewed the current psychotropics carefully including drug interactions. Risk benefit ratio favors no change other than as noted in my dictated progress note. Diagnosis: Problems: (1) Major neurocognitive disorder due to Alzheimer's disease, with behavioral disturbance (2) Anxiety disorder (3) Dementia in Alzheimer's disease with delusions (4) Dementia in Alzheimer's disease with depression (5) Dementia, vascular, with delusions (6) Dementia, vascular, with depression (7) Impulse control disorder MICHELLE CALDERÓN MD Sep 27, 2019 08:47
--- NOTE | 2019-09-27 09:07 | PDOC ---
Exam Note: Steve Note: S/O: This note is a late entry for DOS 09/26/2019 covers elements not covered in my initial note. Discussed the patient with nursing staff, reviewed the chart. The patient was seen on audio-visual rounds in the evening with Leanne RN. Nursing report was with Leanne RN. Slept 4-1/2 hours previous night. ROS: No CV, , Pulmonary, Eye, ENT system symptoms on review. Reliability poor. MSE: Oriented to herself. Insight and judgment, recent and remote memory, attention and concentration, fund of knowledge is poor consistent with her diagnosis. Labs: Reviewed. Imp: Major neurocognitive disorder Alzheimer vascular with delusion, depression, behavioral disturbance. Anxiety disorder unspecified. Impulse control disorder unspecified. Plan: No change from initial note. Assessment: Vital Signs/I&O: Vital Signs Date Time Temp Pulse Resp B/P (MAP) Pulse Ox O2 Delivery O2 Flow Rate FiO2 09/27/19 08:42 72 111/61 09/27/19 06:05 97.6 14 95 09/26/19 06:35 Room Air I & O 09/26/19 09/26/19 09/27/19 15:00 23:00 07:00 Intake Total 720 ml 360 ml Balance 720 ml 360 ml Current Medications: I have reviewed the current psychotropics carefully including drug interactions. Risk benefit ratio favors no change other than as noted in my dictated progress note. Diagnosis: Problems: (1) Major neurocognitive disorder due to Alzheimer's disease, with behavioral disturbance (2) Anxiety disorder (3) Major neurocognitive disorder, due to vascular disease, with behavioral disturbance, mild (4) Dementia in Alzheimer's disease with delusions (5) Dementia in Alzheimer's disease with depression (6) Dementia, vascular, with delusions (7) Dementia, vascular, with depression (8) Impulse control disorder MICHELLE CALDERÓN MD Sep 27, 2019 09:07
--- NOTE | 2019-09-27 09:59 | NUR ---
Pt cooperative with her medication, assessment and cares. Pt is confused. No agitation, no aggression. Pt does make random noises.
[2019-09-27 15:44] VITALS: BP 165/67
[2019-09-27] MEDS: DIVALPROEX 125 MG CAP.SPRINK PO SCH (17:50)
[2019-09-27] MEDS: MIRTAZAPINE 15 MG TABLET PO SCH (19:40)
[2019-09-27] MEDS: MELATONIN 3 MG TABLET PO SCH (19:40)
--- NOTE | 2019-09-27 22:03 | PDOC ---
Exam Note: Steve Note: Please also refer to the separate dictated note~for this date of service dictated separately.~Patient seen individually. Discussed the patient with Nursing staff reviewed the chart.~Reviewed interim history and current functioning. Reviewed vital signs,~Labs/ Radiology~and current medications noted below. Continue current treatment with the changes noted in the dictated addendum note Assessment: Vital Signs/I&O: Vital Signs Date Time Temp Pulse Resp B/P (MAP) Pulse Ox O2 Delivery O2 Flow Rate FiO2 09/27/19 15:44 98.4 98 18 165/67 (99) 98 09/26/19 06:35 Room Air I & O 09/26/19 09/26/19 09/27/19 15:00 23:00 07:00 Intake Total 720 ml 360 ml Balance 720 ml 360 ml Current Medications: I have reviewed the current psychotropics carefully including drug interactions. Risk benefit ratio favors no change other than as noted in my dictated progress note. Diagnosis: Problems: (1) Major neurocognitive disorder due to Alzheimer's disease, with behavioral disturbance (2) Anxiety disorder (3) Dementia in Alzheimer's disease with delusions (4) Dementia in Alzheimer's disease with depression (5) Dementia, vascular, with delusions (6) Dementia, vascular, with depression (7) Impulse control disorder MICHELLE CALDERÓN MD Sep 27, 2019 22:03
--- NOTE | 2019-09-27 22:34 | NUR ---
Pt located in her room, sitting calmly in a chair with chair alarm. Compliant with crushed medications. Pt taken to bed without incident.
[2019-09-28] MEDS: ACETAMINOPHEN 325 MG TABLET PO PRN ×2 (05:20→19:48)
[2019-09-28] MEDS: LEVOTHYROXINE 125 MCG TABLET PO SCH (05:20)
[2019-09-28 05:49] VITALS: BP 152/90
[2019-09-28] MEDS: POTASSIUM CHLORIDE 20 MEQ TABLET.ER. PO SCH ×2 (08:07→17:23)
[2019-09-28] MEDS: QUEtiapine 25 MG TABLET. PO SCH ×2 (08:08→17:23)
[2019-09-28] MEDS: LISINOPRIL 20 MG TABLET PO SCH (08:08)
[2019-09-28] MEDS: POLYETHYLENE GLYCOL 3350 17 GM PACKET. PO SCH (08:08)
--- NOTE | 2019-09-28 09:24 | NUR ---
Patient compliant with assessment and medications.
[2019-09-28 15:50] VITALS: BP 121/75
[2019-09-28] MEDS: DIVALPROEX 125 MG CAP.SPRINK PO SCH (17:23)
[2019-09-28] MEDS: MIRTAZAPINE 15 MG TABLET PO SCH (19:48)
[2019-09-28] MEDS: MELATONIN 3 MG TABLET PO SCH (19:48)
--- NOTE | 2019-09-28 21:53 | PDOC ---
Exam Note: Steve Note: Please also refer to the separate dictated note~for this date of service dictated separately.~Patient seen individually. Discussed the patient with Nursing staff reviewed the chart.~Reviewed interim history and current functioning. Reviewed vital signs,~Labs/ Radiology~and current medications noted below. Continue current treatment with the changes noted in the dictated addendum note Assessment: Vital Signs/I&O: Vital Signs Date Time Temp Pulse Resp B/P (MAP) Pulse Ox O2 Delivery O2 Flow Rate FiO2 09/28/19 15:50 98.4 70 18 121/75 (90) 96 09/26/19 06:35 Room Air I & O 09/27/19 09/27/19 09/28/19 15:00 23:00 07:00 Intake Total 1340 ml 360 ml Balance 1340 ml 360 ml Current Medications: I have reviewed the current psychotropics carefully including drug interactions. Risk benefit ratio favors no change other than as noted in my dictated progress note. Diagnosis: Problems: (1) Major neurocognitive disorder due to Alzheimer's disease, with behavioral disturbance (2) Anxiety disorder (3) Major neurocognitive disorder, due to vascular disease, with behavioral disturbance, mild (4) Dementia in Alzheimer's disease with delusions (5) Dementia in Alzheimer's disease with depression (6) Dementia, vascular, with delusions (7) Dementia, vascular, with depression (8) Impulse control disorder MICHELLE CALDERÓN MD Sep 28, 2019 21:53
--- NOTE | 2019-09-28 22:43 | NUR ---
Pt located in her room sitting in a chair. Compliant with crushed medications. PRN Tylenol administered with HS medications.
[2019-09-29] MEDS: LEVOTHYROXINE 125 MCG TABLET PO SCH (05:33)
[2019-09-29 05:58] VITALS: BP 138/75
--- NOTE | 2019-09-29 08:51 | PDOC ---
Exam Note: Steve Note: S/O: This note is a late entry for DOS 09/27/2019 covers elements not covered in my initial note. Discussed the patient with nursing staff, reviewed the chart. The patient was seen on audio-visual rounds in the evening with Kanika LOZOYA. Nursing report was with Kanika LOZOYA. We discussed stopping daytime morning Seroquel 12.5 mg but nursing staff states she does get irritable. This would get worse off of it. We will monitor other day and then decide. ROS: She continues to be in a wheelchair. Ambulation impaired. No CV, , Pulmonary, Eye, ENT system symptoms on review. Reliability poor. MSE: Oriented to herself. Insight and judgment, recent and remote memory, attention and concentration, fund of knowledge is poor consistent with her diagnosis. Labs: Reviewed. Imp: Major neurocognitive disorder Alzheimer vascular with delusion, depression, behavioral disturbance. Anxiety disorder unspecified. Impulse control disorder unspecified. Plan: No change from initial note. Assessment: Vital Signs/I&O: Vital Signs Date Time Temp Pulse Resp B/P (MAP) Pulse Ox O2 Delivery O2 Flow Rate FiO2 09/29/19 05:58 98.3 100 18 138/75 (96) 98 09/26/19 06:35 Room Air I & O 09/28/19 09/28/19 09/29/19 15:00 23:00 07:00 Intake Total 780 ml 420 ml Balance 780 ml 420 ml Current Medications: I have reviewed the current psychotropics carefully including drug interactions. Risk benefit ratio favors no change other than as noted in my dictated progress note. Diagnosis: Problems: (1) Major neurocognitive disorder due to Alzheimer's disease, with behavioral disturbance (2) Anxiety disorder (3) Major neurocognitive disorder, due to vascular disease, with behavioral disturbance, mild (4) Dementia in Alzheimer's disease with delusions (5) Dementia in Alzheimer's disease with depression (6) Dementia, vascular, with delusions (7) Dementia, vascular, with depression (8) Impulse control disorder MICHELLE CALDERÓN MD Sep 29, 2019 08:51
[2019-09-29] MEDS: POTASSIUM CHLORIDE 20 MEQ TABLET.ER. PO SCH ×2 (08:58→16:52)
[2019-09-29] MEDS: POLYETHYLENE GLYCOL 3350 17 GM PACKET. PO SCH (08:58)
[2019-09-29] MEDS: LISINOPRIL 20 MG TABLET PO SCH (08:59)
--- NOTE | 2019-09-29 09:02 | PDOC ---
Exam Note: Steve Note: S/O: This note is a late entry for DOS 09/28/2019 covers elements not covered in my initial note. Discussed the patient with nursing staff, reviewed the chart. The patient was seen on audio-visual rounds in the evening with Leanne LOZOYA. Nursing report was with Keon LOZOYA. We will go ahead and stop the Seroquel 12.5 mg at 0900 hours to assist with ambulation. She came in ambulating on her own. ROS: She is still in wheelchair. No CV, , Pulmonary, Eye, ENT system symptoms on review. Reliability poor. MSE: Oriented to herself. Insight and judgment, recent and remote memory, attention and concentration, fund of knowledge is poor consistent with her diagnosis. Labs: Reviewed. Imp: Major neurocognitive disorder Alzheimer vascular with delusion, depression, behavioral disturbance. Anxiety disorder unspecified. Impulse control disorder unspecified. Plan: No change from initial note. Assessment: Vital Signs/I&O: Vital Signs Date Time Temp Pulse Resp B/P (MAP) Pulse Ox O2 Delivery O2 Flow Rate FiO2 09/29/19 08:59 100 138/75 09/29/19 05:58 98.3 18 98 09/26/19 06:35 Room Air I & O 09/28/19 09/28/19 09/29/19 15:00 23:00 07:00 Intake Total 780 ml 420 ml Balance 780 ml 420 ml Current Medications: I have reviewed the current psychotropics carefully including drug interactions. Risk benefit ratio favors no change other than as noted in my dictated progress note. Diagnosis: Problems: (1) Major neurocognitive disorder due to Alzheimer's disease, with behavioral disturbance (2) Anxiety disorder (3) Major neurocognitive disorder, due to vascular disease, with behavioral disturbance, mild (4) Dementia in Alzheimer's disease with delusions (5) Dementia in Alzheimer's disease with depression (6) Dementia, vascular, with delusions (7) Dementia, vascular, with depression (8) Impulse control disorder MICHELLE CALDERÓN MD Sep 29, 2019 09:02
--- NOTE | 2019-09-29 09:38 | NUR ---
Reviewed with Eric, spouse/POA. Eric will pick Mandi up on 09/30/19 at 10:30.
--- NOTE | 2019-09-29 09:39 | NUR ---
[facility] Social Work Discharge Planning Form Patient Name MIKE BAGLEY Admit Date: 08/14/19 DISCHARGE PLAN Discharge Destination: [facility] Assessment: Completed on 08/26/19 Transportation: Eric Bagley, spouse/POA, will provide transport on 09/30/19 at 10:30am. Special Instructions/Notes: Upon arrival to [facility], please arrange for follow up appointments with house physician and house psychiatrist within 7-14 days. DISCHARGE TO FACILITY Facility: [facility] Address: [address] [place] [id number] Contact Name: Julissa Singletary, purification director, cell number [phone] PCP: Dr. Gamaliel Yousif [phone], (fax) Psychiatrist: Dr. Khushi Cooper [phone], (fax)
--- NOTE | 2019-09-29 09:53 | NUR ---
Left detailed message for Julissa at [facility] to coordinate d/c for 09/30/19 at 10:30am. Faxed current notes and medication list to Julissa for review.
--- NOTE | 2019-09-29 10:31 | NUR ---
No agitation, no aggression. Pt does make random noises. Pt cooperative with her medication, assessment and cares. Pt is confused.
--- NOTE | 2019-09-29 11:30 | NUR ---
6 stephen removed from pts scalp. Pt tolerated procedure well. No signs or symptoms of infections, no swelling at the site.
[2019-09-29 15:42] VITALS: BP 137/73
[2019-09-29] MEDS: QUEtiapine 25 MG TABLET. PO SCH (16:52)
[2019-09-29] MEDS: DIVALPROEX 125 MG CAP.SPRINK PO SCH (16:52)
[2019-09-29] MEDS: ACETAMINOPHEN 325 MG TABLET PO PRN (16:52)
[2019-09-29] MEDS: MIRTAZAPINE 15 MG TABLET PO SCH (20:36)
[2019-09-29] MEDS: MELATONIN 3 MG TABLET PO SCH (20:36)
--- NOTE | 2019-09-29 22:43 | NUR ---
Pt located in her room sleeping in bed. Compliant with crushed medications in one bite of pudding. Pt went right back to sleep.
--- NOTE | 2019-09-29 22:59 | PDOC ---
Exam Note: Steve Note: S/O: This note covers elements not covered in my initial note. Discussed the patient with nursing staff, reviewed the chart. The patient was seen on audio- visual rounds in the evening with Samy LZOOYA. Nursing report was with Kanika LOZOYA. Slept 7-3/4 hours. Patient has been somewhat anxious, restless at times. They had to put two chairs in front of her since she tries to get out of the chair and could be a fall risk. We stopped the morning Seroquel and we will see how she does with this. To get her transition to nursing facility tomorrow and if daytime agitation persists nursing facility may consider restarting the morning Seroquel at 12.5 mg. ROS: Ambulation still impaired. Remains on wheelchair. No CV, , Pulmonary, Eye, ENT system symptoms on review. Reliability poor. MSE: Oriented to herself. Insight and judgment, recent and remote memory, attention and concentration, fund of knowledge is poor consistent with her diagnosis. Labs: Reviewed. Imp: Major neurocognitive disorder Alzheimer vascular with delusion, depression, behavioral disturbance. Anxiety disorder unspecified. Impulse control disorder unspecified. Plan: No change from initial note. Given her restlessness we had checked the UA on three occasions and they have been negative each time. We will check CBC chemistry in the morning in case this is not being done in the last 3 days. Plan is for her to transition to nursing facility tomorrow. Assessment: Vital Signs/I&O: Vital Signs Date Time Temp Pulse Resp B/P (MAP) Pulse Ox O2 Delivery O2 Flow Rate FiO2 09/29/19 15:42 98.4 94 20 137/73 (94) 98 09/26/19 06:35 Room Air I & O 09/28/19 09/28/19 09/29/19 15:00 23:00 07:00 Intake Total 780 ml 420 ml Balance 780 ml 420 ml Current Medications: I have reviewed the current psychotropics carefully including drug interactions. Risk benefit ratio favors no change other than as noted in my dictated progress note. Diagnosis: Problems: (1) Major neurocognitive disorder due to Alzheimer's disease, with behavioral disturbance (2) Anxiety disorder (3) Major neurocognitive disorder, due to vascular disease, with behavioral disturbance, mild (4) Dementia in Alzheimer's disease with delusions (5) Dementia in Alzheimer's disease with depression (6) Dementia, vascular, with delusions (7) Dementia, vascular, with depression (8) Impulse control disorder MICHELLE CALDERÓN MD Sep 29, 2019 22:59
[2019-09-29] MEDS ORDERED: MAG-95 PO (23:29)
[2019-09-29] MEDS ORDERED: ACET325T21 PO (23:29)
[2019-09-29] MEDS ORDERED: MAGN24003 PO (23:30)
[2019-09-29] MEDS ORDERED: METH28OI2 TP (23:31)
[2019-09-30] MEDS: LEVOTHYROXINE 125 MCG TABLET PO SCH (05:26)
[2019-09-30 06:01] VITALS: BP 125/47
[2019-09-30 09:48] VITALS: BP 125/47
[2019-09-30] MEDS: LISINOPRIL 20 MG TABLET PO SCH (09:48)
[2019-09-30] MEDS: POLYETHYLENE GLYCOL 3350 17 GM PACKET. PO SCH (09:48)
[2019-09-30] MEDS: POTASSIUM CHLORIDE 20 MEQ TABLET.ER. PO SCH (09:48)
--- NOTE | 2019-09-30 10:12 | NUR ---
Patient in wheelchair for safety r/t unsteady gait. Cooperative with dressing and compliant with medications taken crushed in pudding given in one bite. Patient attempts to stand up from wheelchair but sits down when asked by nurse.
--- NOTE | 2019-09-30 10:30 | NUR ---
Patient assisted into personal vehicle by staff x3. She was disorganized and unable to provide assistance. Patient discharged to [facility] memory care and transportation provided by Eric, patients and DPPAULINO
--- NOTE | 2019-09-30 10:34 | NUR ---
Transition Record was faxed to follow-up provider with the following elements: Reason for admission, procedures, tests, principal diagnosis, pending studies, patient instructions, 01/01 contact information for unit, phone number to obtain pending test results, plan for follow-up care, physician follow-up, advanced directive information, and medication list with dose, duration and instructions. This information was included in the following documents: History and physical, lab results, study results, progress notes, social work planning form, DC instruction form, patient visit summary, and medication reconciliation form. Date & time record faxed: 08/01/19 0000 Record faxed to: [facility] Record discussed with/ report given to: DEVORA Casas at [facility] Discharge packet and written script given to Eric (spouse) to hand carry to the [facility].
--- NOTE | 2019-09-30 22:39 | PDOC ---
Exam Note: Steve Note: Dictation#[id number]. Patient discharged. Please also refer to the separate dictated note~for this date of service dictated separately.~Patient seen individually. Discussed the patient with Nursing staff reviewed the chart.~Reviewed interim history and current functioning. Reviewed vital signs,~Labs/ Radiology~and cu rrent medications noted below. Continue current treatment with the changes noted in the dictated addendum note Assessment: Vital Signs/I&O: Vital Signs Date Time Temp Pulse Resp B/P (MAP) Pulse Ox O2 Delivery O2 Flow Rate FiO2 09/30/19 09:48 68 125/47 09/30/19 06:01 97.8 16 100 09/26/19 06:35 Room Air I & O 09/29/19 09/29/19 09/30/19 14:59 22:59 06:59 Intake Total 1200 ml 600 ml Balance 1200 ml 600 ml Current Medications: I have reviewed the current psychotropics carefully including drug interactions. Risk benefit ratio favors no change other than as noted in my dictated progress note. Diagnosis: Problems: (1) Major neurocognitive disorder due to Alzheimer's disease, with behavioral disturbance (2) Anxiety disorder (3) Major neurocognitive disorder, due to vascular disease, with behavioral disturbance, mild (4) Dementia in Alzheimer's disease with delusions (5) Dementia in Alzheimer's disease with depression (6) Dementia, vascular, with delusions (7) Dementia, vascular, with depression (8) Impulse control disorder MICHELLE CALDERÓN MD Sep 30, 2019 22:39
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
--- NOTE | 2019-10-06 13:02 | NUR ---
CANDIDA placed follow up call to Gale, Neo reviewer, and left message to confirm that Nicolasa was discharged to [facility] on 09/30/19. Requested return phone call from Gale should she need additional discharge information.
--- NOTE | 2019-10-06 14:32 | NUR ---
CANDIDA received voice message from Neo [employer] reviewer, with a final authorization number of [id number]. Gale also expressed that all hospital days had been approved and authorized. Addendum: 10/06/19 at 1438 by NICHOL TIRADO Left voice message for [facility], to inform of above.
== END 2019-09-30 10:37 | DRG 57 ==
LOC: ER 07:25 → GEROPSY 10:45
PROVIDERS: ADMIT Psychiatry & Neurology Psychiatry; ATTEND Psychiatry & Neurology Psychiatry
PROC: 0HQ0XZZ Repair Scalp Skin, External Approach (ICD-10-PCS; principal; 2019-09-20)
PROC: 09QKXZZ Repair Nasal Mucosa and Soft Tissue, External Approach (ICD-10-PCS; 2019-09-20)
DX: G30.0 Alzheimer's disease with early onset (principal); S22.32XA Fracture of one rib, left side, initial encounter for closed fracture; F02.81 Dementia in other diseases classified elsewhere, unspecified severity, with behavioral disturbance; F01.51 Vascular dementia, unspecified severity, with behavioral disturbance; E44.0 Moderate protein-calorie malnutrition; E03.9 Hypothyroidism, unspecified; F32.9 Major depressive disorder, single episode, unspecified; F41.9 Anxiety disorder, unspecified; F63.9 Impulse disorder, unspecified; I10 Essential (primary) hypertension; M47.812 Spondylosis without myelopathy or radiculopathy, cervical region; M77.9 Enthesopathy, unspecified; Z20.828 Contact with and (suspected) exposure to other viral communicable diseases; S01.81XA Laceration without foreign body of other part of head, initial encounter; S02.2XXA Fracture of nasal bones, initial encounter for closed fracture; S01.01XA Laceration without foreign body of scalp, initial encounter; S01.511A Laceration without foreign body of lip, initial encounter; W01.0XXA Fall on same level from slipping, tripping and stumbling without subsequent striking against object, initial encounter; Y93.89 Activity, other specified; Z79.899 Other long term (current) drug therapy; Z90.710 Acquired absence of both cervix and uterus; Z88.5 Allergy status to narcotic agent; Y92.89 Other specified places as the place of occurrence of the external cause; Y99.8 Other external cause status; Z68.25 Body mass index [BMI] 25.0-25.9, adult
CPT/HCPCS: 12001; 12011; 36415; 70450; 70486; 71045; 72125; 73502; 73562; 80053; 80164; 85025; 87635; 96361; 96374; J2060; 99285-25; J7030

== ENCOUNTER 2020-05-12 16:56 | Emergency (ER) | payer OTHER ==
[~2020-05-12] VITALS: Ht 162.6 cm; Wt 68.0 kg
[~2020-05-12 16:56] MED LIST changes: +ACET325T21 PO; +GLYC1SUP RC; +HYDR42CR2 TP; +MAG-95 PO; +MAGN24003 PO; +MAGN296S4 PO; +METH28OI2 TP; +METR45CR TP; +MIRT-37 PO; -MIRT15TA PO; -OLAN5TAB5 PO; +OLAN5TAB99 PO; +POLY2500 PO
[2020-05-12 17:39] VITALS: BP 159/96
--- NOTE | 2020-05-12 17:57 | EKG ---
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
[2020-05-12 17:59] LABS: BASO % 1 % (0-3); EOS % 1 % (0-3); HEMOGLOBIN 12.2 g/dL (12.0-15.5); LYMPH # 1.3 x10^3/uL (1.0-4.8); LYMPH % 20 % (24-48); MEAN CORPUSCULAR HEMOGLOBIN 32 pg (25-35); MEAN CORPUSCULAR HGB CONC 33 g/dL (31-37); MEAN CORPUSCULAR VOLUME 96 fL (79-100); MONO # 0.5 x10^3/uL (0.0-1.1); MONO % 7 % (0-9); NEUT # 4.6 x10^3uL (1.8-7.7); NEUT % 72 % (31-73); PLATELET COUNT 219 x10^3/uL (140-400); RED BLOOD COUNT 3.86 x10^6/uL (3.50-5.40); WHITE BLOOD COUNT 6.4 x10^3/uL (4.0-11.0)
[2020-05-12 18:02] LABS: BARBITURATES NEG (NEG); BENZODIAZEPINES NEG (NEG); CANNABINOIDS NEG (NEG); COCAINE NEG (NEG); METHADONE NEG (NEG); OPIATES NEG (NEG); PHENCYCLIDINE NEG (NEG)
[2020-05-12 18:04] LABS: AMPHETAMINE/METHAMPHETAMINE NEG (NEG)
[2020-05-12 18:07] LABS: GFR 57.6; POTASSIUM 3.5 mmol/L (3.5-5.1)
[2020-05-12 18:10] LABS: BACTERIA,URINE 0 /HPF (0-FEW); BILIRUBIN,URINE NEG (NEG); CLARITY,URINE CLEAR; COLOR,URINE YELLOW; GLUCOSE,URINE NEG (NEG); NITRITE,URINE NEG (NEG); RBC,URINE RARE /HPF (0-2); SQUAMOUS EPITHELIAL CELL,UR OCC /LPF; WBC,URINE OCC /HPF (0-4)
[2020-05-12 18:13] LABS: ALBUMIN 3.6 g/dL (3.4-5.0); ALBUMIN/GLOBULIN RATIO 1.1 (1.0-1.7); MAGNESIUM 2.5 mg/dL (1.8-2.4); TOTAL BILIRUBIN 0.3 mg/dL (0.2-1.0)
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
[2020-05-12 18:20] LABS: ACETAMIN 4.5 mcg/mL (10-30)
[2020-05-12 18:21] LABS: SALIC < 2.8 mg/dL (2.8-20.0)
[2020-05-12 20:55] LABS: VAL ACID 27 mcg/mL (50-100)
== END 2020-05-12 18:30 | disposition short-term general hospital (02) ==
LOC: ER 16:56
DX: Z13.39 Encounter for screening examination for other mental health and behavioral disorders (principal); F03.91 Unspecified dementia, unspecified severity, with behavioral disturbance; F41.9 Anxiety disorder, unspecified; F32.9 Major depressive disorder, single episode, unspecified; Z88.5 Allergy status to narcotic agent
CPT/HCPCS: 36415; 80053; 80164; 80307; 80329; 81001; 82553; 83735; 84484; 85025; 93005; 99285; G0480